=== PATIENT | female | born 1940 | race Caucasian/White ===

== ENCOUNTER 2023-10-26 16:19 | Inpatient (IN) | payer MEDICARE, OTHER, SELFPAY ==
[2023-10-26 11:41] VITALS: BP 146/84
[2023-10-26 12:08] LABS: % Basophils 0.4 % (0-2); % Eosinophils 0.2 % (0-6); % Immature Granulocytes 0.2 % (0-0.5); % Monocytes 12.6 % (1.7-9.3); % Neutrophils 62.6 % (42.2-75.2); Absolute Lymphocytes 1.1 10^3/uL (1.2-3.4); Absolute Monocytes 0.6 10^3/uL (0.1-0.6); Absolute Neutrophils 2.9 10^3/uL (1.4-6.5); Hematocrit 42.8 % (37.0-47.0); Hemoglobin 14.4 g/dL (12.0-16.0); Mean Corp Hgb Conc. 33.6 g/dL (33.0-37.0); Mean Corpuscular Hgb 30.6 pg (27.0-31.0); Mean Corpuscular Volume 90.9 fL (81.0-99.0); Mean Platelet Volume 9.1 fL (7.4-10.4); Nucleated Red Blood Cells % 0 %; Platelet Count 180 10^3/uL (130-400); Red Blood Cell Count 4.71 10^6/uL (4.20-5.40); Red Cell Dist. Width 12.8 % (11.5-14.5); White Blood Cell Count 4.6 10^3/uL (4.8-10.8)
[2023-10-26 12:25] LABS: ALT (SGPT) 72 U/L (0-35); AST (SGOT) 86 U/L (14-36); Albumin 4.1 g/dl (3.5-5.0); Alkaline Phosphatase 115 U/L (38-126); Blood Urea Nitrogen 19 mg/dl (7-17); Calcium 9.4 mg/dl (8.4-10.2); Carbon Dioxide 25 mmol/L (22-30); Chloride 101 mmol/L (98-107); Glucose 95 mg/dl (70-99); Potassium 3.8 mmol/L (3.5-5.1); Sodium 133 mmol/L (135-145); Total Bilirubin 0.7 mg/dl (0.2-1.3); Total Protein 6.7 g/dl (6.3-8.2)
[2023-10-26 12:33] LABS: NT-proBNP 1750 pg/ml; Troponin I < 0.012 ng/ml
--- NOTE | 2023-10-26 14:33 | ED.GENMED ---
History of Present Illness
General
Chief Complaint: Breathing Problem
Source: patient
Exam Limitations: none
Time Seen by Provider: 10/26/23 13:31
Nursing documentation reviewed up to this point in time: agreed with
Travel History
Have you had any contact with someone who has COVID-19?: No
Do you have any symptoms of coronavirus? Fever > 100 degrees, chills, cough, shortness of breath, sore throat, loss of taste or smell, muscle aches, or headache?: No
History of Present Illness
History of Present Illness:
82-year-old female with past medical history of A-fib not currently anticoagulated but is on diltiazem that she claims she initially was on for rate control but denies being in atrial fibrillation recently. Additionally has a history of
hyperlipidemia GERD CHF. She is presenting to the emergency department after seeing her primary care doctor was noted to have an elevated heart rate which was irregular with concerns for A-fib and also crackles upper lungs. Previously was taking
Lasix but missed roughly 6 days of the medication last week due to a GI bug that is now resolved. [place] minimally short of breath over the past few days feels slight improvement today. Has noticed some mild leg swelling. Does have decreased
exercise tolerance. Has noticed some sensation of wheezing recently. Has had some shortness of breath with lying flat over the past few days as well.
Review of Systems
Review of Systems
Allergies reviewed?: Yes
All Other Systems: ROS reviewed and negative except as documented in HPI and ROS
Phy Exam
Physical Exam
Physical Exam:
GENERAL: Alert , in no apparent distress
EYE: pupils equal and reactive
NECK: Supple, no significant adenopathy.
ENT: o/p clr, mmm.
CARDIAC: Very slight rhonchi mainly to the lower lungs. Regular rate and rhythm .
LUNGS: Clear breath sounds bilaterally, no acute respiratory distress, no wheezes/rales/rhonchi
ABDOMEN: Soft, without focal tenderness, no r/g, no cvat
NEUROLOGICAL: Alert and oriented, no focal neuro deficits
SKIN: Warm and dry, skin intact.
MUSCULOSKELETAL: No edema, well perfused.
PSYCH: Normal and appropriate interaction.
Scores
Heart Failure Risk
Heart Failure Risk Score: Not Applicable
Course
Orders/Labs/Results
Orders:
Orders
10/26/23 11:44
Electrocardiogram (*1) Urgent
Reason for Study: Other
Other Reason for Exam: Respiratory Distress
EKG- Treatment ONCE
CR Chest - 2 Views Urgent
Comment:
Reason For Exam: respiratory distress
10/26/23 11:55
Complete Blood Count/With Diff Urgent
Comprehensive Metabolic Panel Urgent
NT-proBNP Urgent
Troponin I Urgent
10/26/23 14:38
Furosemide [Lasix] 40 mg IV NOW STA
Abnormal Lab Results
10/26/23
11:55
WBC 4.6 L 10^3/uL
(4.8-10.8)
Absolute Lymphs (auto) 1.1 L 10^3/uL
(1.2-3.4)
Monocytes % 12.6 H %
(1.7-9.3)
Sodium 133 L mmol/L
(135-145)
BUN 19 H mg/dl
(7-17)
AST 86 H U/L
(14-36)
ALT 72 H U/L
(0-35)
10/26/23 11:55
10/26/23 11:55
Vital Signs
Initial and Last Documented VS:
Initial Vital Signs
Temp Pulse Resp BP Pulse Ox
98.5 F 112 22 146/84 95
10/26/23 11:41 10/26/23 11:41 10/26/23 11:41 10/26/23 11:41 10/26/23 11:41
Last Documented Vital Signs
Temp Pulse Resp BP Pulse Ox
98.5 F 87 16 127/67 97
10/26/23 11:41 10/26/23 15:00 10/26/23 15:00 10/26/23 14:49 10/26/23 13:55
MDM/Problems Addressed
MDM/Problems Addressed:
82-year-old female presenting to the emergency department today with concerns of shortness of breath and dyspnea on exertion over the past few days was additionally seen by the primary care doctor earlier today and was found to have an elevated
heart rate which was irregular concerning for A-fib and also had some crackles on lung examination. Upon arrival here patient had an elevated heart rate in the 110s which was irregularly irregular though improving to the 90s at rest pulse ox in the
mid 90s afebrile normal blood pressure. Labs showing slightly elevated BNP without any recent old levels for comparison negative troponin level EKG consistent with atrial fibrillation with occasional PVCs. Concerning the patient's recent decrease
in exercise tolerance and likely heart failure exacerbation symptoms plan to give dose of IV Lasix and admit for further treatment and monitoring of the atrial fibrillation as well. Patient may additionally need anticoagulation.
*Critical Care Note
Total Time (30-74mins, 75-104mins- exclusive of procedures): Not Applicable
ED Attending Note
-
Portions of this chart may have been created with voice recognition software.� Occasional wrong word or��sound alike� substitutions may have occurred due to the inherent limitations of voice recognition software.
Discharge Plan
Departure
Patient Disposition: Admit
Date of Disposition: 10/26/23
Time of Disposition: 15:28
Admit to: Telemetry
Admit to doctor: [email or web address]
Presentation/result/management discussed w/ accepting MD/DO: Hospitalist
Patient with high blood pressure during this ER visit?: No
Condition: Good
Covid-19: Not Applicable
Discharge Problem:
Heart failure
Prescriptions:
No Action
diltiazem HCl 240 MG capsule,extended release 24hr
240 mg PO HS
cyanocobalamin (vitamin B-12) 1,000 MCG tablet
500 mcg PO DAILY
pravastatin 20 MG tablet
40 mg PO HS
escitalopram oxalate 20 MG tablet
20 mg PO DAILY
omeprazole 20 MG tablet,delayed release (DR/EC)
20 mg PO DAILY
cholecalciferol (vitamin D3) [Vitamin D3] 1,000 UNIT capsule
5,000 unit PO DAILY
Metamucil 3-1 Fiber
2 tab PO DAILY
betamethasone dipropionate 1 APPLIC cream
1 applic topical DAILYPRN PRN (Reason: itch)
budesonide-formoterol [Symbicort] 1 PUFF HFA aerosol inhaler
2 puff inhalation R BID
Sutab 1.479-0.188- 0.225 gram Tablet
0 tab PO PER PKG DIR
valsartan 160 mg Capsule
160 mg PO DAILY
Farxiga 10 mg Tablet
10 mg PO DAILY
Probiotic
200 mg PO DAILY
furosemide 20 MG tablet
40 mg PO DAILY
Referrals:
Janes Gomez Jr., [Family Provider] -
Interventions
Interventions:
*General Assessment Last Done: 10/26/23 11:41
ED- Cardiac Assessment Last Done: 10/26/23 13:55
ED- Pulmonary Assessment Last Done: 10/26/23 13:55
[2023-10-26 14:49] VITALS: BP 127/67
[2023-10-26] MEDS: LASIX 40 MG IV (14:49)
--- NOTE | 2023-10-26 15:39 | HPS.HSE ---
Addendum entered and electronically signed by Trena Chavez MD 10/26/23 19:12:
82F hx PE pAfib HFpEF HLD GERD IBS p/w with SOB cough wheezing past few days after hold home lasix due to GI illness with associate diarrhea since resolved. Noted to be in afib on ED evaluation though rate controlled.
Physical Exam
General: No pallor, cyanosis, or jaundice.
HEENT: Throat clear. PERRLA Normocephalic atraumatic
NECK: Supple. No JVD Carotid Bruits
RESPIRATORY: bibasilar crackles, wheezing
CVS: S1, S2 normal. RRR. No murmur, rub or gallop.
ABDOMEN: Soft, non-tender. No distension. BS+/normal.
EXTREMITIES: No peripheral cyanosis or edema.
DIRECTOR OF TESTING: AOx3. No focal deficits.
#Acute on Chronic HFpEF
#Wheezing
#afib but rate controlled
Tele admit
Lasix IV diuresis
Cardio eval
ECHO
Daily weight I/O
duonebs RQID
Original Note:
Family Physician
-
Family Physician: Janes Gomez Jr.
Chief Complaint
-
Shortness of breath, wheezing
History of Present Illness
82-year-old female complaining of shortness of breath with persistent cough and wheezing over the past few days although missed 10 days of Lasix due to a GI bug. She was seen by her PCP for concerns for A-fib and bilateral crackles along with mild
leg edema. The patient also has orthopnea over the past few days. She reports during her GI bug with diarrhea for 4 days she increased her liquid intake to stay hydrated and stopped her oral Lasix. She resumed her Lasix yesterday but still has a
persistent cough with wheeze. She denies fever, chills, chest pain, palpitations, abdominal pain, nausea, vomiting, diarrhea, urinary symptoms. She has history of paroxysmal A-fib she is on diltiazem but not AC therapy due to infrequency although
is currently in A-fib controlled rate at present time. Other past medical history includes paroxysmal A-fib, HLD, CHF GERD, IBS, diverticulosis, colonic polyps, depression, PE 2019
Medical History
Past Medical History
Past Medical History: Reports Other
Additional Past Medical History:
PE 2020 was on Eliquis for 5 months
paroxysmal A-fib
HLD
CHF
GERD,
IBS
diverticulosis
colonic polyps
depression
Past Surgical History: Reports Other
Additional Past Surgical History:
Appendectomy age 71
Cholecystectomy
Cataract extraction
Endometrial cancer with hysterectomy
Social History
Tobacco: Non-smoker
Alcohol: Daily (1 glass wine stopped about 7 days ago)
Personal:
Living: With Family (With who has dementia)
Employment: Retired
Family History
Family History: Not pertinent
Allergies / Home Medications
Allergies reflects when Allergies were last updated in [employer] App.
Home Medications with original date entered in [employer] App
Allergy/Medication List:
Allergies
Allergy/AdvReac Type Severity Reaction Status Date / Time
prednisone Allergy psychosis Verified 02/10/23 13:03
Home Medications
cholecalciferol (vitamin D3) 25 mcg (1,000 unit) capsule (Vitamin D3) 5,000 unit PO DAILY 07/24/21
cyanocobalamin (vitamin B-12) 1,000 mcg tablet 500 mcg PO DAILY 07/24/21
diltiazem HCl 240 mg capsule,extended release 24 hr 240 mg PO HS 07/24/21
escitalopram oxalate 20 mg tablet 20 mg PO DAILY 07/24/21
omeprazole 20 mg tablet,delayed release 20 mg PO DAILY 07/24/21
Lactobacillus rhamnosus GG 10 billion cell capsule (Culturelle) 1 cap PO DAILY 02/10/23
dapagliflozin propanediol 10 mg tablet (Farxiga) 10 mg PO DAILY 02/10/23
alendronate 70 mg tablet 70 mg PO WEEKLY 10/26/23
furosemide 40 mg tablet 40 mg PO DAILY 10/26/23
rosuvastatin 10 mg tablet 10 mg PO HS 10/26/23
valsartan 160 mg tablet 160 mg PO DAILY 10/26/23
Review of Systems
-
History Source: Patient
A 12 point ROS was completed and negative except as noted: Yes
Constitutional: Denies Fever, Fatigue or Chills
EENT: Denies Sore Throat or Runny Nose
Respiratory: Reports Cough and Trouble Breathing (Shortness of breath, orthopnea, wheezing)
Cardiac: Denies Chest Pain, Diaphoresis, Palpitations or Syncope
Abdomen/GI: Denies Abdominal Pain, Nausea, Vomiting, Diarrhea, Constipated, Bloody Stools or Black Stools
: Denies Dysuria, Frequency, Flank Pain, Incontinence or Difficulty Voiding
Musculoskeletal: Reports Edema (Trace bilateral lower legs); Denies Joint Pain
Skin: Denies Itching or Rash
Neurological: Denies Dizzy or Headache
Endocrine: Reports No Symptoms
Hematologic/Lymphatic: Reports No Symptoms
Psych: Reports Calm
Physical Exam
Vital Signs
Vital Signs
Temp Pulse Resp BP Pulse Ox
98.5 F 87 16 127/67 97
10/26/23 11:41 10/26/23 15:00 10/26/23 15:00 10/26/23 14:49 10/26/23 13:55
Physical Exam
General: Comfortable and Conversant; No Pain, Fever or Chills
HEENT: NormoCephalic, Anicteric, Moist mucous membranes, PERRLA, [place] Conjunctivae and No Ptosis
Respiratory: Wheezes (Expiratory throughout both lung pérez)
Cardiac: S1/S2, Irregular Rhythm (A-fib controlled rate 90 bpm) and Peripheral Edema (Trace bilateral legs); No Murmur, Rub, Gallop or JVD
Breast: Deferred by me
GI: Soft, Non Tender, Non Distended and No Hepatosplenomegaly
Rectal: Deferred by Provider
Genito-urinary: Deferred by me
Musculoskeletal: No Clubbing, No Cyanosis, Edema, Left Lower Extremity (Trace) and Edema, Right Lower Extremity (Trace); No Edema, Left Upper Extremity or Edema, Right Upper Extremity
Skin: Warm and Dry; No Rash or Jaundice
Neuro: AO x 3, No Motor Deficits, Nonfocal/grossly intact, Cranial Nerves Intact and No Sensory Deficits; No Slurred Speech, Facial Droop or Tremors
Psych: Calm
Laboratory Results
-
10/26/23 11:55
10/26/23 11:55
Laboratory Results
Total Bilirubin 0.7 mg/dl (0.2-1.3) 10/26/23 11:55
AST 86 U/L (14-36) H 10/26/23 11:55
ALT 72 U/L (0-35) H 10/26/23 11:55
Alkaline Phosphatase 115 U/L (38-126) 10/26/23 11:55
Troponin I < 0.012 ng/ml 10/26/23 11:55
Data Reviewed
-
Diagnostic Radiology: Report Reviewed by me
Lab Data: Labs Reviewed by me
Impression/Plan
-
Impression/plan:
Admit to telemetry
#Acute on chronic CHF
Missed 6 days of Lasix due to GI bug
BNP 1750
-I/O, daily weight
-IV Lasix 40 mg given in ER
-Resume Lasix 40 mg daily
-Continue Farxiga
-Follows with [facility] cardiology
-2d Echo
duo nebs for wheezing
2D echo 01/20/2023: EF 60-65%, normal LVS LVSF, no wall abnormalities, mild LVH, diastolic function indeterminate, mild/moderate left atrial enlargement, mild TR, PASP 32-37 mmHg
#Paroxysmal A-fib
Current A-fib controlled rate on EKG 87 bpm
-Continue diltiazem patient not on AC therapy due to infrequency of A-fib
#Transaminitis likely secondary to venous congestion
-Will follow CMP
#Daily alcohol use
Recently stopped drinking 1 glass of wine 7 to 10 days ago
#HTN�benign
127/67
-Continue valsartan 160 mg daily, diltiazem to 40 mg at bedtime
#HLD
-Check lipid profile
-Continue pravastatin
#GERD
-Continue omeprazole
#Depression
-Continue Lexapro
Other PMH:
IBS
diverticulosis
colonic polyps with removal
Osteoporosis continue alginate weekly
DVT prophylaxis
Subcu Lovenox
Full code
--- NOTE | 2023-10-26 17:13 | CON.CAR ---
Addendum entered and electronically signed by Pranav Redd MD 10/26/23 18:17:
82 yo female with PMH of chronic HFPEF, HTN, and new diagnosis of atrial fibrillation (since last cardiology outpatient visit) is admitted with SOB. We are consulted for acute on chronic HFPEF. Of note, she recently stopped lasix due to a GI
illness. Then subsequently developed cough and orthopnea. Exam with irregular rhythm, no murmurs, 1+ LE edema.
Acute on chronic HFPEF. Continue IV lasix. Continue Farxiga.
Atrial fibrillation. Was present on EKG in January. May be persistent. Rate is controlled. Continue diltiazem 240mg daily. Check echo. We discussed topics of inpatient vs outpatient ARVIND/DCCV. She is thinking about her options.
CHADS2-VASC = 5. Start eliquis 5mg bid.
Original Note:
Consultation
Consultation Request
Date/Time Consultation Requested: 10/26/23 16:15
Date/Time Consultation Performed: 10/26/23 17:15
Requesting Provider: ESTEFANY Alexandre
Performing Provider: ESTEFANY Stanton for Dr. Redd
Reason for Consultation: Acute on chronic heart failure
Medical History
-
Chief Complaint: Shortness of breath
History of Present Illness:
Earnestine Balderas is an 82-year-old female (known to Dr. Ramon, her primary systems coordinator), with paroxysmal atrial fibrillation (not on oral anticoagulation), prior PE (completed apixaban for 5 months, 2019), hyperlipidemia, HFpEF, GERD, and IBS who
presented to the emergency department with shortness of breath. She endorsed associated cough and wheeze. She reports GI bug and holding doses of furosemide due to concern for dehydration. She saw her PCP and was found to have crackles by
auscultation in addition to lower extremity edema. Further interview revealed that the patient has been experiencing orthopnea for several days. She was given 1 dose of intravenous furosemide in the emergency department and reports improvement in
her respiratory symptoms. She is currently rate controlled in atrial fibrillation. Prior EKG performed at the time of colonoscopy shows atrial fibrillation with rapid ventricular response.
Past Medical History
Past Medical History: Arrhythmias (paroxysmal atrial fibrillation), CHF, Hypercholesterolemia and Other (PE [2020], IBS)
Past Surgical History: Appendectomy and Cholecystectomy
Social History
Tobacco: Non-Smoker
Alcohol: Daily (1 glass of wine every evening)
Drug: None
Personal:
Living: Assisted Living (caring for with dementia)
Employment: Retired
Family History
Family History: Reviewed & Not Pertinent
Allergies / Home Medications
Allergy/AdvReac Type Severity Reaction Status Date / Time
prednisone Allergy psychosis Verified 02/10/23 13:03
Medication Instructions Recorded Confirmed Type
cholecalciferol (vitamin D3) 25 5,000 unit PO DAILY 07/24/21 10/26/23 History
mcg (1,000 unit) capsule (Vitamin
D3)
cyanocobalamin (vitamin B-12) 500 mcg PO DAILY 07/24/21 10/26/23 History
1,000 mcg tablet
diltiazem HCl 240 mg 240 mg PO HS 07/24/21 10/26/23 History
capsule,extended release 24 hr
escitalopram oxalate 20 mg tablet 20 mg PO DAILY 07/24/21 10/26/23 History
omeprazole 20 mg tablet,delayed 20 mg PO DAILY 07/24/21 10/26/23 History
release
Lactobacillus rhamnosus GG 10 1 cap PO DAILY 02/10/23 10/26/23 History
billion cell capsule (Culturelle)
dapagliflozin propanediol 10 mg 10 mg PO DAILY 02/10/23 10/26/23 History
tablet (Farxiga)
alendronate 70 mg tablet 70 mg PO WEEKLY 10/26/23 10/26/23 History
furosemide 40 mg tablet 40 mg PO DAILY 10/26/23 10/26/23 History
rosuvastatin 10 mg tablet 10 mg PO HS 10/26/23 10/26/23 History
valsartan 160 mg tablet 160 mg PO DAILY 10/26/23 10/26/23 History
Review of Systems
-
History Source: Patient
All other systems: Negative unless noted
Constitutional: Fatigue
Respiratory: No Symptoms
Cardiac: No Symptoms
: No Symptoms
Physical Exam
Vital Signs
Temp Pulse Resp BP Pulse Ox
98.5 F 93 25 127/67 97
10/26/23 11:41 10/26/23 16:15 10/26/23 16:15 10/26/23 14:49 10/26/23 13:55
Lab Results
10/26/23 11:55
10/26/23 11:55
Troponin I < 0.012 ng/ml 10/26/23 11:55
Qqd-X-Rhpjjoefazn Pept 1750 pg/ml 10/26/23 11:55
Physical Exam
General: Well Developed, Well Nourished, No Apparent Distress and Comfortable
HEENT: Normocephalic, Anicteric and Moist Mucous Membranes
Respiratory: Clear and Non Labored Respirations
Cardiac: S1/S2, Irregular Rhythm and Peripheral Edema
Breast: Deferred by me
GI: Soft, Non Tender, Non Distended and Normal Bowel Sounds
Rectal: Deferred by Provider
Genito-urinary: No Costovertebral Tender
Musculoskeletal: No Clubbing and No Cyanosis
Skin: Warm
Neuro: AO x 3
Hematologic/Lymphatic: No Lymphadenopathy
Psych: Calm
Impression / Plan
-
HFpEF, acute on chronic
-Diuresis with furosemide 40mg IV daily, this requires intensive monitoring
-I/O, BMP and daily weight
-Update TTE
-Heart failure education
Atrial fibrillation, type unknown
-Rate controlled on diltiazem 240mg daily
-Oral Anticoagulation: None, start Apixaban 5mg BID
-[id number]: Score at least 5 (Heart failure, HTN, age 75 or more, female gender)
HTN, follow with diuresis
Pre-diabetes, Hgba1c 5.8%
Prior PE, completed apixaban for 5 months
Data Reviewed
-
EKG: Report Reviewed by me (Atrial fibrillation with PVCs, rate 92)
Radiology: Report Reviewed by me (CXR: Mild cardiomegaly. No acute disease of the chest.)
Medical Tests (Nuc Med, Echo etc): Report Reviewed by me (Echo as above)
Labs: Labs Reviewed by me
Old Records: Reviewed
[2023-10-26 17:24] VITALS: BP 122/69; BMI 31.7
[2023-10-26] MEDS: LOVENOX 40 MG SC (17:35)
--- NOTE | 2023-10-26 17:44 | PTCARENOTE ---
Arrived to unit and ambulated to room. Oriented to room. Call joy within reach.
[2023-10-26] MEDS: DUONEB 3 ML INH (19:51)
[2023-10-26 19:57] VITALS: BP 128/62
[2023-10-26] MEDS: CRESTOR 10 MG PO (21:07)
[2023-10-26] MEDS: ELIQUIS 5 MG PO (21:07)
[2023-10-26] MEDS: CARDIZEM CD 240 MG PO (21:07)
[2023-10-26 23:30] VITALS: BP 115/74
[2023-10-27] VITALS (7 sets, daily range): BP systolic 102–130; BP diastolic 58–81; PULSE 90; O2SAT 96; BMI 31.3
--- NOTE | 2023-10-27 07:26 | W.PN.HOSP.TC ---
Today's Communication/Plan
-
cont diuresis
daily weight I/O
Eliquis
PT eval
Duonebs
Assessment / Plan
Assessment / Plan
Physical Exam
General: No pallor, cyanosis, or jaundice.
HEENT: Throat clear. PERRLA Normocephalic atraumatic
NECK: Supple. No JVD Carotid Bruits
RESPIRATORY: bibasilar crackles, wheezing
CVS: S1, S2 normal. RRR.� No murmur, rub or gallop.
ABDOMEN: Soft, non-tender. No distension. BS+/normal.
EXTREMITIES: No peripheral cyanosis or edema.
PRODUCT TRANSFER PUMPER: AOx3. No focal deficits.
82-year-old female complaining of shortness of breath with persistent cough and wheezing over the past few days although missed 10 days of Lasix due to a GI bug.� She was seen by her PCP for concerns for A-fib and bilateral crackles along with mild
leg edema.� The patient also has orthopnea over the past few days.� She reports during her GI bug with diarrhea for 4 days she increased her liquid intake to stay hydrated and stopped her oral Lasix.� She resumed her Lasix yesterday but still has a
persistent cough with wheeze.� She denies fever, chills, chest pain, palpitations, abdominal pain, nausea, vomiting, diarrhea, urinary symptoms.� She has history of paroxysmal A-fib she is on diltiazem but not AC therapy due to infrequency although
is currently in A-fib controlled rate at present time.� Other past medical history includes paroxysmal A-fib, HLD, CHF GERD, IBS, diverticulosis, colonic polyps, depression, PE 2019
#Acute on chronic CHF
#wheezing (reported history cardiogenic wheezing)
Missed 6 days of Lasix due to GI bug
BNP 1750
-I/O, daily weight
-IV Lasix 40 mg given in ER
-Continue Farxiga
-Cardio eval appreciated cont IV lasix 40 mg daily
-ECHO appreciated EF 65-70%
-duo nebs R QID for wheezing, symptom improvement noted
#Paroxysmal A-fib
Current A-fib controlled rate on EKG 87 bpm
Cardio evval appreciated Eliquis 5 mg BID startded
#Transaminitis likely secondary to venous congestion
-mild, improving
#Daily alcohol use
Recently stopped drinking 1 glass of wine 7 to 10 days ago
#HTN�benign
cont home antihypertensives with holding parameters
#hx HLD
-lipid profile wnl
-Continue pravastatin
#GERD
-Continue omeprazole
#Depression
-Continue Lexapro
Other PMH:
IBS
diverticulosis
colonic polyps with removal
Osteoporosis continue alginate weekly
DVT prophylaxis
Subcu Lovenox
Full code
I spent a total of 55 minutes with the patient or on the floor. More than 50% of this time involved counseling and coordination of care.
Anticipated Discharge: 24 - 48 hours
Subjective/Interval History
-
Date of Service: October 27, 2023
Seen and examined at bedside in no acute distress resting comfortably in bed. reports some improvement in wheezing sob. Reports nebulizer treatments helping. 6 lb weight loss noted since admission start of IV diuresis.
Objective Data
-
Labs:
Laboratory Results
10/27/23
06:00
WBC Pending
Hgb Pending
Hct Pending
Plt Count Pending
Sodium Pending
Potassium Pending
Chloride Pending
Carbon Dioxide Pending
BUN Pending
Creatinine Pending
Glucose Pending
Calcium Pending
Total Bilirubin Pending
AST Pending
ALT Pending
Alkaline Phosphatase Pending
Vital Signs:
Vital Signs
Temp Pulse Resp BP Pulse Ox
97.7 F 76 18 121/67 95
10/27/23 04:03 10/27/23 04:03 10/27/23 04:03 10/27/23 04:03 10/27/23 04:03
I&O
10/26/23 10/27/23 10/28/23
06:59 06:59 06:59
Output Total 375 / 375
Balance -375 / -375
[2023-10-27] MEDS: DUONEB 3 ML INH ×4 (07:43→19:32)
[2023-10-27] MEDS: VITAMIN B-12 500 MCG PO (08:15)
[2023-10-27] MEDS: PROTONIX 40 MG PO (08:15)
[2023-10-27] MEDS: VISBIOME 1 CAP PO (08:15)
[2023-10-27] MEDS: FARXIGA 10 MG PO (08:15)
[2023-10-27] MEDS: ELIQUIS 5 MG PO ×2 (08:16→19:56)
[2023-10-27] MEDS: LEXAPRO 20 MG PO (08:16)
[2023-10-27] MEDS: LASIX 40 MG IV (08:16)
[2023-10-27] MEDS: DIOVAN 160 MG PO (08:16)
[2023-10-27 08:28] LABS: % Basophils 0.8 % (0-2); % Eosinophils 0.5 % (0-6); % Immature Granulocytes 0.3 % (0-0.5); % Lymphocytes 44.7 % (20.5-51.1); % Monocytes 12.3 % (1.7-9.3); % Neutrophils 41.4 % (42.2-75.2); Absolute Lymphocytes 1.8 10^3/uL (1.2-3.4); Absolute Monocytes 0.5 10^3/uL (0.1-0.6); Absolute Neutrophils 1.7 10^3/uL (1.4-6.5); Hematocrit 46.5 % (37.0-47.0); Hemoglobin 15.4 g/dL (12.0-16.0); Mean Corp Hgb Conc. 33.1 g/dL (33.0-37.0); Mean Corpuscular Hgb 30.3 pg (27.0-31.0); Mean Corpuscular Volume 91.5 fL (81.0-99.0); Mean Platelet Volume 9.1 fL (7.4-10.4); Nucleated Red Blood Cells % 0 %; Platelet Count 177 10^3/uL (130-400); Red Blood Cell Count 5.08 10^6/uL (4.20-5.40); Red Cell Dist. Width 12.8 % (11.5-14.5)
[2023-10-27] MEDS: VITAMIN D3 (cholecalciferol) 25 MCG PO (08:30)
[2023-10-27 08:42] LABS: ALT (SGPT) 67 U/L (0-35); AST (SGOT) 78 U/L (14-36); Albumin 3.6 g/dl (3.5-5.0); Alkaline Phosphatase 95 U/L (38-126); Blood Urea Nitrogen 28 mg/dl (7-17); Calcium 9.7 mg/dl (8.4-10.2); Carbon Dioxide 28 mmol/L (22-30); Chloride 98 mmol/L (98-107); Estimated Creatinine Clearance 45 ml/min; Glucose 85 mg/dl (70-99); HDL Cholesterol 68 mg/dl; LDL Cholesterol, Calculated 54 mg/dl; Potassium 4.1 mmol/L (3.5-5.1); Sodium 136 mmol/L (135-145); Total Bilirubin 0.7 mg/dl (0.2-1.3); Total Cholesterol 149 mg/dl (50-199); Total Protein 6.3 g/dl (6.3-8.2); Triglyceride 136 mg/dl (10-149); Very Low Density Lipoprotein 27 mg/dl (0-30); eGFR > 60.00
--- NOTE | 2023-10-27 13:02 | W.PN.CD ---
Today's Communication / Plan
-
Move to PO Lasix tomorrow
Suspect she will be good for home tomorrow
Impression / Plan
-
HFpEF, acute on chronic
-Diuresis with furosemide 40mg IV daily, this requires intensive monitoring => Move to PO tomorrow
-I/O, BMP and daily weight
-Updated TTE was fine
- We did look for ATTR CM and pyrophosphate scan was negative
-Heart failure education
Atrial fibrillation, persistent is the likely form
- I spoke about considering rhythm control and she is not sure she is interested. First EKG we see is January 2023 with AFib
-Rate controlled on diltiazem 240mg daily
-Oral Anticoagulation: None, start Apixaban 5mg BID
-[id number]: Score at least 5 (Heart failure, HTN, age 75 or more, female gender)
HTN, follow with diuresis
Pre-diabetes, Hgba1c 5.8%
Prior PE, completed apixaban for 5 months
Physical Exam
Vital Signs/Labs
Vital Signs
Temp Pulse Resp BP Pulse Ox
97.8 F 98 18 102/58 96
10/27/23 11:14 10/27/23 11:27 10/27/23 11:27 10/27/23 11:14 10/27/23 11:27
10/26/23 10/27/23 10/28/23
06:59 06:59 06:59
Actual Weight 75.013 kg
10/27/23 07:31
10/27/23 07:31
Triglycerides 136 mg/dl (10-149) 10/27/23 07:31
LDL Cholesterol, Calc 54 mg/dl 10/27/23 07:31
VLDL Cholesterol, Calc 27 mg/dl (0-30) 10/27/23 07:31
HDL Cholesterol 68 mg/dl 10/27/23 07:31
10/26/23
11:55
Ger-X-Zwpddxeakbt Pept 1750
LAB Results
10/26/23
11:55
Troponin I < 0.012
Physical Exam
Constitutional: No acute distress
EENT: Anicteric
Cardiovascular: Rhythm/rate is irregular
Respiratory: Respiratory effort normal and Lungs clear to auscul.
GI: Soft and Distention absent
Neuro/Psych: AO x 3
Data Reviewed
-
Date of Service: October 27, 2023
--- NOTE | 2023-10-27 15:55 | PTCARENOTE ---
pt's HR on Tele monitor was in 140's-150's. pt talking on the phone. states she feels her heart race a little. Cardio made aware. no new orders at this time.
--- NOTE | 2023-10-27 16:18 | CM ---
CM following re: d/c planning
Chart reviewed
Cm met with the patient at bedside; IA completed
Pt reports that she and her spouse reside in a [place] with no CHRISTOPHER
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
Pt has no previous SNF/VN hx however does own a spc, w/c, & r/w for use if needed
Pt confirms prescription coverage and rx's are filled at [facility]
Pt PCP-Janes Dillon
CM addressed addressed consult to uribe the cost of Eliquis & Xarelto and informed the provider of the same
Post d/c recommendation is for VN, CM will send TT to clinical liaison w/[facility] to place referral
CM will continue to monitor patient progress and assist with additional needs at d/c as applicable
PLAN; d/c home with VN
[2023-10-27] MEDS: CARDIZEM CD 240 MG PO (21:03)
[2023-10-27] MEDS: CRESTOR 10 MG PO (21:03)
[2023-10-28 03:30] VITALS: BP 100/69
[2023-10-28 05:37] VITALS: BMI 31.1
[2023-10-28 06:24] LABS: % Basophils 0.8 % (0-2); % Eosinophils 1.3 % (0-6); % Immature Granulocytes 0.5 % (0-0.5); % Lymphocytes 33.7 % (20.5-51.1); % Neutrophils 50.7 % (42.2-75.2); Absolute Eosinophils 0.1 10^3/uL (0-0.7); Absolute Lymphocytes 1.3 10^3/uL (1.2-3.4); Absolute Monocytes 0.5 10^3/uL (0.1-0.6); Absolute Neutrophils 1.9 10^3/uL (1.4-6.5); Hematocrit 45.7 % (37.0-47.0); Hemoglobin 15.1 g/dL (12.0-16.0); Mean Corpuscular Hgb 30.2 pg (27.0-31.0); Mean Corpuscular Volume 91.4 fL (81.0-99.0); Nucleated Red Blood Cells % 0 %; Platelet Count 168 10^3/uL (130-400); Red Cell Dist. Width 12.8 % (11.5-14.5); White Blood Cell Count 3.8 10^3/uL (4.8-10.8)
[2023-10-28 06:47] LABS: ALT (SGPT) 57 U/L (0-35); AST (SGOT) 57 U/L (14-36); Albumin 3.6 g/dl (3.5-5.0); Alkaline Phosphatase 92 U/L (38-126); Blood Urea Nitrogen 28 mg/dl (7-17); Calcium 9.3 mg/dl (8.4-10.2); Carbon Dioxide 30 mmol/L (22-30); Chloride 102 mmol/L (98-107); Estimated Creatinine Clearance 41 ml/min; Glucose 103 mg/dl (70-99); Potassium 3.6 mmol/L (3.5-5.1); Sodium 136 mmol/L (135-145); Total Bilirubin 0.5 mg/dl (0.2-1.3); Total Protein 6.2 g/dl (6.3-8.2)
[2023-10-28 07:21] VITALS: BP 124/83
--- NOTE | 2023-10-28 07:25 | W.PN.HOSP.TC ---
Addendum entered and electronically signed by Trena Chavez MD 10/29/23 13:13:
hx paroxysmal afib now persistent as per cardiology
Original Note:
Today's Communication/Plan
-
discharge
Assessment / Plan
Assessment / Plan
Physical Exam
General: No pallor, cyanosis, or jaundice.
HEENT: Throat clear. PERRLA Normocephalic atraumatic
NECK: Supple. No JVD Carotid Bruits
RESPIRATORY: Clear to auscultation
CVS: S1, S2 normal. RRR.� No murmur, rub or gallop.
ABDOMEN: Soft, non-tender. No distension. BS+/normal.
EXTREMITIES: No peripheral cyanosis or edema.
ENROLLMENT REPRESENTATIVE: AOx3. No focal deficits.
82-year-old female complaining of shortness of breath with persistent cough and wheezing over the past few days although missed 10 days of Lasix due to a GI bug.� She was seen by her PCP for concerns for A-fib and bilateral crackles along with mild
leg edema.� The patient also has orthopnea over the past few days.� She reports during her GI bug with diarrhea for 4 days she increased her liquid intake to stay hydrated and stopped her oral Lasix.� She resumed her Lasix yesterday but still has a
persistent cough with wheeze.� She denies fever, chills, chest pain, palpitations, abdominal pain, nausea, vomiting, diarrhea, urinary symptoms.� She has history of paroxysmal A-fib she is on diltiazem but not AC therapy due to infrequency although
is currently in A-fib controlled rate at present time.� Other past medical history includes paroxysmal A-fib, HLD, CHF GERD, IBS, diverticulosis, colonic polyps, depression, PE 2019
#Acute on chronic CHF
#wheezing (reported history cardiogenic wheezing)
Missed 6 days of Lasix due to GI bug
BNP 1750
I/O, daily weight
IV Lasix 40 mg given in ER
Continue Farxiga
ECHO appreciated EF 65-70%
duo nebs R QID for wheezing, symptom improvement noted will recommend follow up with latex dipper outpatient for PFTs
Cardio eval appreciated IV lasix 40 mg daily transitioned to PO
-Cardizem increased from home 240 to 360 daily. Stable for discharge outpatient follow up.
#Paroxysmal A-fib
Current A-fib controlled rate on EKG 87 bpm
Cardio eval appreciated Eliquis 5 mg BID startded
#Transaminitis likely secondary to venous congestion
-mild, improving
#Daily alcohol use
Recently stopped drinking 1 glass of wine 7 to 10 days ago
#HTN�benign
cont home antihypertensives with holding parameters
#hx HLD
-lipid profile wnl
-Continue pravastatin
#GERD
-Continue omeprazole
#Depression
-Continue Lexapro
Other PMH:
IBS
diverticulosis
colonic polyps with removal
Osteoporosis continue alginate weekly
DVT prophylaxis
Subcu Lovenox
Full code
Medically stable for discharge home with home services and outpatient follow up recommendations.
discussed with patient and her sister
Total Time Preparing Discharge ___45____ minutes including examination of the patient, summary of the hospital stay, instructions for continuing care to all relevant caregivers; and preparation of discharge records, prescriptions, and referral
forms if necessary.
Anticipated Discharge: Today
Subjective/Interval History
-
Date of Service: October 28, 2023
Seen and examined at bedside in no acute distress resting comfortably in bed. Reports improvement in overall symptoms. Denies any new acute issues. Eager to go home. Sister Susanne present during evaluation.
Objective Data
-
Labs:
Laboratory Results
10/28/23
05:35
WBC 3.8 L
Hgb 15.1
Hct 45.7
Plt Count 168
Sodium 136
Potassium 3.6
Chloride 102
Carbon Dioxide 30
BUN 28 H
Creatinine 1.0
Glucose 103 H
Calcium 9.3
Total Bilirubin 0.5
AST 57 H
ALT 57 H
Alkaline Phosphatase 92
Vital Signs:
Vital Signs
Temp Pulse Resp BP Pulse Ox
97.9 F 79 18 100/69 96
10/28/23 03:30 10/28/23 03:30 10/28/23 03:30 10/28/23 03:30 10/28/23 03:30
I&O
10/27/23 10/28/23 10/29/23
06:59 06:59 06:59
Intake Total 1200 / 1200
Output Total 375 / 375 1450 / 1450
Balance -375 / -375 -250 / -250
[2023-10-28] MEDS: DUONEB 3 ML INH ×2 (07:42→11:14)
--- NOTE | 2023-10-28 08:18 | W.PN.CD ---
Today's Communication / Plan
-
-Patient has been transitioned back to Lasix 40 mg PO daily, which she should continue at home.
-Continue Farxiga 10 mg daily.
-Patient with A-fib with mildly elevated heart rates at times.
-Will increase Cardizem CD from 240 mg daily to 360 mg daily, which should be new home dose.
-Continue Apixaban 5mg BID.
-Patient can be discharged to home today; outpatient follow-up with Cardiology as scheduled.
Impression / Plan
-
HFpEF, acute on chronic
-Patient has been transitioned back to Lasix 40 mg PO daily, which she should continue at home.
-Continue Farxiga 10 mg daily.
-Updated TTE was fine
-We did look for ATTR CM and pyrophosphate scan was negative
Atrial fibrillation, persistent is the likely form
-First EKG we see is January 2023 with AFib
-Patient with A-fib with mildly elevated heart rates at times.
-Will increase Cardizem CD from 240 mg daily to 360 mg daily, which should be new home dose.
-Continue Apixaban 5mg BID.
-[id number]: Score at least 5 (Heart failure, HTN, age 75 or more, female gender)
HTN-controlled on current medications; continue.
Pre-diabetes, Hgba1c 5.8%
Prior PE, completed apixaban for 5 months
Hyperlipidemia-continue rosuvastatin.
Physical Exam
Vital Signs/Labs
Vital Signs
Temp Pulse Resp BP Pulse Ox
98.1 F 86 18 124/83 94
10/28/23 07:21 10/28/23 07:44 10/28/23 07:44 10/28/23 07:21 10/28/23 07:44
10/27/23 10/28/23 10/29/23
06:59 06:59 06:59
Actual Weight 75.013 kg 74.503 kg
10/28/23 05:35
10/28/23 05:35
Triglycerides 136 mg/dl (10-149) 10/27/23 07:31
LDL Cholesterol, Calc 54 mg/dl 10/27/23 07:31
VLDL Cholesterol, Calc 27 mg/dl (0-30) 10/27/23 07:31
HDL Cholesterol 68 mg/dl 10/27/23 07:31
10/26/23
11:55
Ace-M-Zgvlcagtcys Pept 1750
LAB Results
10/26/23
11:55
Troponin I < 0.012
Physical Exam
Constitutional: No acute distress and Comfortable
EENT: Anicteric
Cardiovascular: Pedal edema is absent, Systolic murmur absent, Rhythm/rate is irregular and S1S2 is normal
Respiratory: Respiratory effort normal and Lungs clear to auscul.
GI: Soft
Neuro/Psych: AO x 3
Other: Skin (Warm, dry, intact)
Data Reviewed
-
Date of Service: October 28, 2023
EKG: Tracing Personally Visualized and interpreted (Telemetry: A-fib, intermittent RVR)
Echo: Tracing Personally Visualized and interpreted (EF 65%; no significant valvular disease)
Medical Tests (PFT, Pathology etc): Discussed with Nurse and Discussed with Patient
Labs: Labs Reviewed by me
[2023-10-28] MEDS: DIOVAN 160 MG PO (08:57)
[2023-10-28] MEDS: ELIQUIS 5 MG PO (08:57)
[2023-10-28] MEDS: VITAMIN B-12 500 MCG PO (08:58)
[2023-10-28] MEDS: FARXIGA 10 MG PO (08:58)
[2023-10-28] MEDS: PROTONIX 40 MG PO (08:58)
[2023-10-28] MEDS: LASIX 40 MG PO (08:58)
[2023-10-28] MEDS: VISBIOME 1 CAP PO (08:58)
[2023-10-28] MEDS: LEXAPRO 20 MG PO (08:58)
[2023-10-28] MEDS: FLUSH (NSS) 1 FLUSH IV (08:59)
[2023-10-28] MEDS: VITAMIN D3 (cholecalciferol) 25 MCG PO (08:59)
[2023-10-28] MEDS: CARDIZEM CD 360 MG PO (08:59)
--- NOTE | 2023-10-28 12:10 | PN.CDI ---
CDI
- -
CDI:
Physician Documentation Request
Admit Date: 10/26/23 16:19
Dear Doctor Scott,
Please review the following and provide your response in the progress notes.
Clinical Indicators:
- 10/28 Cardiology 'Atrial fibrillation, persistent is the likely form'
- 10/27 PN 'Paroxysmal A-fib'
If possible, please provide further specificity regarding atrial fibrillation, such as:
Paroxysmal atrial fibrillation - terminates spontaneously or with intervention within 7 days of onset
Persistent atrial fibrillation - episodes of continuous AF that last more than 7 days and do not self-terminate
Permanent atrial fibrillation - when a decision has been made to accept the presence of AF and there is no further attempt to restore or maintain sinus rhythm
Other - please specify
Use of terms such as suspected, likely, concern for, or probable (associated with a specific diagnosis that is being evaluated, monitored, or treated as if it exists) are acceptable and can be coded in the inpatient setting, when documented at the
time of discharge.
Thank you,
Belkys Soriano RN
CDI Specialist
Please use your independent medical judgment in providing your response.
[2023-10-28 12:15] VITALS: BP 102/63
--- NOTE | 2023-10-28 14:17 | VNURNOTE ---
Home Health Liaison met with patient at 1400 to discuss [facility] nurse/therapy, visits, schedule and homebound status. Patient is agreeable and understands that visits at home will be 2-3 x per week to assess and teach medical management. Patient has a
scale and is able to log a daily weight.
[facility] brochure provided with contact information. Patient is aware that [facility] will contact her for start of care in 1-2 days after discharge from .
[facility] referral completed in [facility].
--- NOTE | 2023-10-28 14:49 | W.DCSUMMARY ---
Discharge Summary
Discharge Data
Date of Admission: 10/26/23
Date of Discharge: 10/28/23
-
Pending Results: No
Hospital Course
82F p/w shortness of breath with persistent cough and wheezing over the past few days although missed 10 days of Lasix due to GI illness.� She was seen by her PCP for concerns of A-fib and bilateral crackles along with mild leg edema.� The patient
also had orthopnea over the past few days.� She has history of paroxysmal A-fib for which she was on diltiazem but not AC therapy due to infrequency although presented in persistent A-fib controlled rate.� Other past medical history included HLD,
CHF GERD, IBS, diverticulosis, colonic polyps, depression, PE 2019. Acute on chronic CHF, wheezing (reported history cardiogenic wheezing), BNP 1750, I/O,ECHO appreciated EF 65-70%. Patient responded well to lasix diuresis and duo nebs R QID for
wheezing, outpt follow up with [facility] Care Unit Nurse recommended. Cardiology evaluated and transitioned patient from IV lasix to PO, increased home Cardizem from 240 mg to 360 mg daily, and started patient on Eliquis. Transaminitis likely secondary to
venous congestion-mild, improving. Medically stable, patient was discharged home with home services and outpatient follow up recommendations.
Discharge Plan
-
Patient Disposition: Home with Home Care
Discharge Diagnosis/Procedures: Acute on Chronic Heart Failure with Preserved Ejection Fraction, Wheezing possible reactive airway disease, paroxysmal atrial fibrillation, mild Liver Transaminitis secondary to Heart failure exacerbation improving,
hypertension, hyperlipidemia
Condition: Fair
Diet: Low Cholesterol and 2 Gram Sodium
Activity: As tolerated
Driving Restrictions: As prior to admission
Bathing Restrictions: None
Blood Work: Please repeat CBC and CMP with primary care provider in 1 week of discharge.
Others Tests: Please follow up with top printing press operator in 2-4 weeks of discharge for formal pulmonary function tests.
Other Services: VN, PT and OT
Specialty Instructions: Weigh Daily- Call MD for wt gain/loss 3 lbs overnight/5 lbs in 1 week
Activity Restrictions/Additional Instructions:
Please follow up with primary care provider in 1 week of discharge, keep your appointment with cardiology, and follow up with top printing press operator in 2-4 weeks of discharge.
Eliquis has been prescribed for atrial fibrillation stroke risk reduction.
Cardizem has been prescribed for better rate control atrial fibrillation.
Please take medications as prescribed/recommended and follow up with primary care provider and/or other healthcare provider involved in your care for refills and/or further adjustments to your medication regimen as necessary.
cholecalciferol (vitamin D3) 25 mcg (1,000 unit) capsule (Vitamin D3) 5,000 unit PO DAILY Vitamin D supplementation
cyanocobalamin (vitamin B-12) 1,000 mcg tablet 500 mcg PO DAILY Vitamin B-12 supplementation
escitalopram oxalate 20 mg tablet 20 mg PO DAILY Mental Health/Anxiety/Depression
omeprazole 20 mg tablet,delayed release 20 mg PO DAILY Gastrointestinal Issue
Lactobacillus rhamnosus GG 10 billion cell capsule (Culturelle) 1 cap PO DAILY Gastrointestinal Issue
dapagliflozin propanediol 10 mg tablet (Farxiga) 10 mg PO DAILY Heart Failure
alendronate 70 mg tablet 70 mg PO WEEKLY OSTEOPOROSIS
furosemide 40 mg tablet 40 mg PO DAILY Fluid Retention/Swelling For Heart Failure
rosuvastatin 10 mg tablet 10 mg PO HS High Cholesterol
valsartan 160 mg tablet 160 mg PO DAILY For Hypertension
albuterol sulfate 90 mcg/actuation aerosol inhaler (Ventolin HFA) 2 puff inhalation Q6H PRN shortness of breath or wheezing possible reactive airway disease/asthma
New Medications or Medication Dose change
apixaban 5 mg tablet (Eliquis) 5 mg PO BID for atrial fibrillation stroke risk reduction
diltiazem HCl 180 mg capsule,extended release 24 hr 360 mg PO DAILY increased from prior home dose 240 mg for better rate control atrial fibrillation
Instructions: Atrial Fibrillation (DC), Heart Failure, Adult (DC)
Referrals:
Janes Gomez Jr., DO [Family Provider] - in one week
Dino James MD [Active] - in two to four weeks
Arya Ramon MD [Active] - 11/15/23 2:00 pm
Prescriptions:
New
diltiazem HCl 180 mg Capsule,Extended Release 24hr
360 mg PO DAILY 30 Days Qty: 60 0RF
Eliquis 5 mg Tablet
5 mg PO BID 30 Days Qty: 60 0RF
albuterol sulfate [Ventolin HFA] 90 mcg/actuation HFA aerosol inhaler
2 puff inhalation Q6H PRN (Reason: shortness of breath or wheezing) Qty: 8.5 0RF
Continued
cyanocobalamin (vitamin B-12) 1,000 MCG tablet
500 mcg PO DAILY
escitalopram oxalate 20 MG tablet
20 mg PO DAILY
omeprazole 20 MG tablet,delayed release (DR/EC)
20 mg PO DAILY
cholecalciferol (vitamin D3) [Vitamin D3] 1,000 UNIT capsule
5,000 unit PO DAILY
Culturelle 10 billion cell Capsule
1 cap PO DAILY
dapagliflozin propanediol [Farxiga] 10 mg Tablet
10 mg PO DAILY
furosemide 40 mg tablet
40 mg PO DAILY
alendronate 70 mg tablet
70 mg PO WEEKLY
valsartan 160 mg tablet
160 mg PO DAILY
rosuvastatin 10 mg tablet
10 mg PO HS
Discontinued
diltiazem HCl 240 MG capsule,extended release 24hr
240 mg PO HS
Discharge Orders:
Discharge Patient (As Directed); Ordered 10/28/23
Ordered By: Trena Chavez
Discharge Date and Time
Discharge Date/Time: 10/28/23 16:44
--- NOTE | 2023-10-28 15:51 | CM ---
CM following re: d/c planning
Chart reviewed
Pt is medically stable for d/c
Post d/c recommendation is home with VN
CM notified clinical liaison/[facility] who placed referral & accepted
No additional d/c needs to note
PLAN; d/c home with [facility]
[2023-10-28] MEDS: DUONEB INH (16:11)
== END 2023-10-28 16:44 | disposition home health service (06) | DRG 291 ==
LOC: 4 EAST ACU 16:19
PROVIDERS: Clinical Nurse Specialist Family Health; Physician Assistant; ADMITTING PHYSICIAN Internal Medicine; CONSULT PHYSICIAN Internal Medicine; EMERGENCY PHYSICIAN Emergency Medicine; FAMILY PHYSICIAN Family Medicine
DX: I11.0 Hypertensive heart disease with heart failure (principal); I50.33 Acute on chronic diastolic (congestive) heart failure; I48.19 Other persistent atrial fibrillation; K21.9 Gastro-esophageal reflux disease without esophagitis; F32.A Depression, unspecified; E78.00 Pure hypercholesterolemia, unspecified
CPT/HCPCS: 71046; 80053; 80061; 83880; 84484; 85025; 93005; 93306; 94640; 96374; 97162; 99285

== ENCOUNTER → 2023-11-09 12:41 | Outpatient (REF) | payer MEDICARE, OTHER, SELFPAY ==
[2023-11-09 13:25] LABS: % Basophils 0.9 % (0-2); % Eosinophils 1.8 % (0-6); % Immature Granulocytes 0.3 % (0-0.5); % Lymphocytes 38.7 % (20.5-51.1); % Monocytes 7.3 % (1.7-9.3); Absolute Basophils 0.1 10^3/uL (0-0.2); Absolute Eosinophils 0.1 10^3/uL (0-0.7); Absolute Lymphocytes 2.6 10^3/uL (1.2-3.4); Absolute Monocytes 0.5 10^3/uL (0.1-0.6); Absolute Neutrophils 3.5 10^3/uL (1.4-6.5); Hemoglobin 15.4 g/dL (12.0-16.0); Mean Corp Hgb Conc. 33.5 g/dL (33.0-37.0); Mean Corpuscular Hgb 30.2 pg (27.0-31.0); Mean Corpuscular Volume 90.2 fL (81.0-99.0); Mean Platelet Volume 10.4 fL (7.4-10.4); Nucleated Red Blood Cells % 0 %; Platelet Count 262 10^3/uL (130-400); Red Cell Dist. Width 12.5 % (11.5-14.5); White Blood Cell Count 6.8 10^3/uL (4.8-10.8)
[2023-11-09 13:42] LABS: ALT (SGPT) 29 U/L (0-35); AST (SGOT) 28 U/L (14-36); Albumin 3.8 g/dl (3.5-5.0); Alkaline Phosphatase 70 U/L (38-126); Blood Urea Nitrogen 16 mg/dl (7-17); Calcium 10.2 mg/dl (8.4-10.2); Carbon Dioxide 26 mmol/L (22-30); Chloride 104 mmol/L (98-107); Glucose 114 mg/dl (70-99); Potassium 4.2 mmol/L (3.5-5.1); Sodium 140 mmol/L (135-145); Total Bilirubin 0.8 mg/dl (0.2-1.3); Total Protein 6.3 g/dl (6.3-8.2); eGFR > 60.00
== END ==
LOC: OLABPV 12:41
PROVIDERS: ATTENDING PHYSICIAN Family Medicine
DX: R79.89 Other specified abnormal findings of blood chemistry (principal); R73.03 Prediabetes; I48.0 Paroxysmal atrial fibrillation; R53.83 Other fatigue
CPT/HCPCS: 80053; 85025

== ENCOUNTER 2023-12-23 09:24 | Day surgery (SDC) | payer MEDICARE, OTHER, SELFPAY ==
[2023-12-23 10:23] VITALS: BMI 32.2
== END 2023-12-23 11:20 | disposition home or self-care (01) ==
LOC: CATH 09:24
PROVIDERS: ATTENDING PHYSICIAN Internal Medicine Cardiovascular Disease; FAMILY PHYSICIAN Family Medicine; OTHER PHYSICIAN Internal Medicine
DX: I48.19 Other persistent atrial fibrillation (principal); I11.0 Hypertensive heart disease with heart failure; I50.32 Chronic diastolic (congestive) heart failure; E78.2 Mixed hyperlipidemia; K21.9 Gastro-esophageal reflux disease without esophagitis; E66.9 Obesity, unspecified; Z68.32 Body mass index [BMI] 32.0-32.9, adult; Z85.89 Personal history of malignant neoplasm of other organs and systems; Z79.84 Long term (current) use of oral hypoglycemic drugs; Z79.01 Long term (current) use of anticoagulants
CPT/HCPCS: 92960; 93005

== ENCOUNTER → 2024-01-13 | Outpatient (REF) | payer MEDICARE, OTHER, SELFPAY | LOC: DHSLP | PROVIDERS: ATTENDING PHYSICIAN Internal Medicine Critical Care Medicine; FAMILY PHYSICIAN Family Medicine | DX: G47.33 Obstructive sleep apnea (adult) (pediatric) (principal) | CPT/HCPCS: 95800 ==

== ENCOUNTER → 2024-01-21 10:38 | Outpatient (REF) | payer MEDICARE, OTHER, SELFPAY ==
[2024-01-21 11:32] LABS: % Basophils 0.6 % (0-2); % Eosinophils 3.1 % (0-6); % Immature Granulocytes 0.2 % (0-0.5); % Monocytes 7.5 % (1.7-9.3); % Neutrophils 41.6 % (42.2-75.2); Absolute Eosinophils 0.2 10^3/uL (0-0.7); Absolute Lymphocytes 2.4 10^3/uL (1.2-3.4); Absolute Monocytes 0.4 10^3/uL (0.1-0.6); Absolute Neutrophils 2.1 10^3/uL (1.4-6.5); Hematocrit 45.9 % (37.0-47.0); Hemoglobin 14.9 g/dL (12.0-16.0); Mean Corp Hgb Conc. 32.5 g/dL (33.0-37.0); Mean Corpuscular Hgb 29.2 pg (27.0-31.0); Mean Platelet Volume 9.8 fL (7.4-10.4); Nucleated Red Blood Cells % 0 %; Platelet Count 205 10^3/uL (130-400); Red Cell Dist. Width 13.6 % (11.5-14.5); White Blood Cell Count 5.1 10^3/uL (4.8-10.8)
[2024-01-21 12:48] LABS: ALT (SGPT) 33 U/L (0-35); AST (SGOT) 33 U/L (14-36); Albumin 4.2 g/dl (3.5-5.0); Alkaline Phosphatase 82 U/L (38-126); Blood Urea Nitrogen 18 mg/dl (7-17); Calcium 10.6 mg/dl (8.4-10.2); Carbon Dioxide 24 mmol/L (22-30); Chloride 107 mmol/L (98-107); Glucose 103 mg/dl (70-99); HDL Cholesterol 80 mg/dl; LDL Cholesterol, Calculated 50 mg/dl; Sodium 141 mmol/L (135-145); Total Bilirubin 0.7 mg/dl (0.2-1.3); Total Cholesterol 144 mg/dl (50-199); Total Protein 6.8 g/dl (6.3-8.2); Triglyceride 74 mg/dl (10-149); Very Low Density Lipoprotein 14 mg/dl (0-30); eGFR > 60.00
[2024-01-21 13:07] LABS: TSH Reflex To Free T4 2.27 uIU/ml (0.47-4.68)
[2024-01-21 16:10] LABS: Intact PTH 121.6 pg/ml (13.6-85.8)
== END ==
LOC: OLABPV 10:38
PROVIDERS: ATTENDING PHYSICIAN Family Medicine
DX: Z13.29 Encounter for screening for other suspected endocrine disorder (principal); R53.83 Other fatigue; R73.03 Prediabetes; E78.2 Mixed hyperlipidemia
CPT/HCPCS: 36415; 80053; 80061; 83036; 83970; 84443; 85025

== ENCOUNTER → 2024-02-22 12:50 | Outpatient (REF) | payer MEDICARE, OTHER, SELFPAY | LOC: RAD 12:50 | PROVIDERS: ATTENDING PHYSICIAN Family Medicine | DX: E21.3 Hyperparathyroidism, unspecified (principal) | CPT/HCPCS: 76536 ==

== ENCOUNTER → 2024-04-11 15:34 | Outpatient (REF) | payer MEDICARE, OTHER, SELFPAY | LOC: RAD 15:34 | PROVIDERS: ATTENDING PHYSICIAN Family Medicine | DX: M79.672 Pain in left foot (principal) | CPT/HCPCS: 73630 ==

== ENCOUNTER → 2024-04-18 09:18 | Outpatient (REF) | payer MEDICARE, OTHER, SELFPAY | LOC: RAD 09:18 | PROVIDERS: ATTENDING PHYSICIAN Family Medicine | DX: E21.3 Hyperparathyroidism, unspecified (principal) | CPT/HCPCS: 78071; A9500 ==

== ENCOUNTER 2024-07-13 05:59 | Day surgery (SDC) | payer MEDICARE, OTHER, SELFPAY ==
[2024-06-30 09:31] VITALS: BMI 33.1
[2024-07-13] VITALS (18 sets, daily range): BP systolic 98–122; BP diastolic 57–77; BMI 32.8
--- NOTE | 2024-07-13 10:04 | ITS.CL.ABL ---
Pipe Manufacture Supervisor - Ablation
Ablation
Procedure Report:
AFIB ablation:
Ms. Balderas is a very pleasant 83 yr old woman with symptomatic persistent AF and atrial flutters, is recommended for atrial fibrillation ablation.
Date of the Procedure:
07/13/2024
Indications:
Persistent atrial fibrillation / atrial flutter
Pre-Operative Diagnosis:
Persistent atrial fibrillation / atrial flutter
Post-Operative Diagnosis:
Persistent atrial fibrillation / atrial flutter
Procedure Performed:
Atrial fibrillation ablation with Pulsed-Field approach for pulmonary vein isolation
Posterior wall isolation
Performing Physician:
Lukas Quinones MD
Assistants:
EP staff
Anesthesia:
See anesthesia records
Detailed Description of the Procedure:
Written informed consent was obtained from the patient after a full explanation of the risks and benefits of the procedure including the risks of sedation and anesthesia.
The patient was brought to the electrophysiology laboratory in stable condition in fasting state. Continuous electrocardiographic and hemodynamic monitoring was initiated.
The initial rhythm was atrial fibrillation.
The procedure site was meticulously prepared with surgical scrub and allowed to dry with no pooling. Sterile draping was applied to cover the procedure site. The image intensifier was draped with sterile bag and positioned over the patient. After
infusion of local anesthetic, vascular access was obtained under ultrasound guidance and sheaths were placed over guide wire as detailed below.
Sheath and Catheter Placement:
The following catheters / sheaths were placed
Sheaths:
��������� 17Fr steerable sheath (Weijuadrive�, Dentalink) in right femoral
��������� 9Fr in right femoral vein
Catheters:
��������� KAREN HD Grid mapping catheter � at locations of RA, LA
��������� Farawave� PFA catheter
��������� ICE catheter -AcuNav - at locations of RA, SVC, and RV.
��������� Decapolar catheter in RA and CS
Intracardiac ECHO:
An 8-Greenlandic AcuNav intracardiac ECHO (ICE) probe was advanced through the 9-Greenlandic sheath in the right femoral vein into the right atrium under fluoroscopic and ICE ultrasound image guidance and a baseline ECHO study was performed. The left atrial
size was dilated. There was moderate tricuspid regurgitation. The aortic valve was grossly normal. There was normal left ventricular systolic functions. There is no pericardial effusion. All the four veins were identified and has flow identified.
There was severe spontaneous contrast noted in the KATLIN.
During the procedure, ICE was used for monitoring of complications, guidance of trans-septal puncture, monitor the catheter position and tracking ablation lesions. No change in the pericardial space noted throughout the procedure.
Trans-septal Puncture:
Heparin was initiated and infused to maintain appropriate ACT. A pigtail guidewire was advanced through the 8-Greenlandic sheath in the right femoral vein into the superior vena cava under fluoroscopic and ICE guidance. The 9-Greenlandic sheath was exchanged
for a Faradrive sheath which was advanced into the superior vena cava. A transseptal VersaCross RF pigtail via Faradrive connect system was utilized to perform the trans-septal puncture. The apparatus was withdrawn until it was in contact with the
fossa ovalis. The position was adjusted based on fluoroscopy and ultrasound images from ICE. Under fluoroscopic, hemodynamic and ICE ultrasound guidance, left atrium was cannulated by applying RF energy. Once atrial septum was cannulated, the
pigtail wire was advanced into the left atrium. The guide wire was advanced into the left superior pulmonary vein. Both the sheath and the dilator was advanced into the left atrium. The dilator with the needle was withdrawn. Blood was aspirated from
the Faradrive sheath and arterial blood confirmed. The sheath was flushed. Saline injection noted into the left atrium on ICE. The mapping catheter was advanced in the sheath into the left pulmonary vein. Left atrial pressure was measured.
3D Electroanatomic Mapping:
Using the HD Grid catheter advanced through sheath into the left atrium, an electroanatomic map (EAM) of the left atrium was created using Brook[place] mapping system. The map was used for localization of catheter position and tacking of ablation
lesions.
The EAM of the left atrium showed 4 pulmonary veins with all 4 veins electrically connected to the body the LA. It showed extensive areas of low voltage on the posterior and anterior wall of the LA in AF but had good signals in sinus rhythm. The LA
was dilated in size.
Following the EAM, preparation were made for ablation.
Ablation:
Ablation # 1: Pulmonary vein Isolation:
Glycopyrrolate 0.2 mg was given prior to the placement of ablation. Using Smart Plate pulsed field ablation system, pulmonary vein isolation was achieved. First the ablation catheter was placed in the LSPV and ostial ablation lesions were performed in
a counter clock roberts approach all around the PV ostium circumferentially. Then the catheter was placed on the antral location and multiple ablation lesions were placed circumferentially on the antrum of the vein.
In the similar fashion, the LIPV were isolated.
Then the catheter was moved to right sided veins. The ostial and antral ablations were placed as noted above.
Patient remained in atrial fibrillation.
Ablation #2: Posterior wall isolation:
Using the pulsed field ablation catheter, the catheter was placed between left superior pulmonary vein and right severe pulmonary vein with series of overlapping ablation lesions placed.
Using the pulsed field ablation catheter, the catheter was placed on the posterior wall and moved around the posterior wall to have adequate contact and ablations were placed isolating the posterior wall.
Cardioversion:
Once the PV isolation was achieved, decision was made to proceed with cardioversion. A 200 J biphasic shock was applied on the ry posterior Zoll patches and sinus rhythm was achieved. No significant pause noted.
EPS and Confirmation of the PVI and bidirectional block:
Following achievement of entrance block at the pulmonary veins, pacing from the HD catheter in each of the four veins at 10 milliamps for 2 milliseconds showed entrance and exit block. All PVI were rechecked at the end of the case and remained
isolated. Entrance and exit block were demonstrated in all veins.
Post ablation Electroanatomic mapping:
Once ablation was completed, the EAM of the LA was done again in sinus rhythm with excellent demarcation of LA myocardium and isolated antral tissue. There was only little scattered scar noted on the anterior wall.
The KATLIN had healthy signals and was not isolated.
The ICE of the LA post ablation showed persistently low flow despite good sinus rhythm and electrical signals noted.
Procedure End
ICE study was done again that showed no epicardial accumulation. No complications noted.
Following the completion of the EP study, catheters were removed. Protamine 40 mg was given at the end of the procedure and ACT was checked repeatedly. The sheaths were removed and hemostasis achieved with �Figure of 8� and manual compression after
acceptable ACT is achieved.
Left atrial Pressure:
Mean LA pressure was 19mmHg
Mean RA pressure was 17 mmHg.
Fluoro time:
12.5 min / 38.4 mGy
Estimated Blood loss:
<10 cc
Specimens Removed:
None.
Implants / Devices:
None
Urine output:
None
Packs / Drains/ Tubes:
None
Instrument / Sponge Count Correct:
Yes
Complications of the Procedure:
None
Condition of Patient at Time of Transfer:
Hemodynamically stable with no neurological or vascular compromise.
Summary:
Successful atrial fibrillation ablation with Pulsed Field approach for pulmonary vein isolation, roof dependent flutter ablation and posterior wall isolation.
Figures from the Procedure:
Figure 1: The electroanatomic mapping (EAM) of the left atrium with bipolar voltage (purple indicates normal electrical activity with moctezuma as no myocardial muscle electric activity indicating a line of block or scar.
[2024-07-13] MEDS: LASIX 20 MG IV (12:04)
--- NOTE | 2024-07-13 12:43 | W.PN.UPDATE ---
Update Note
Progress Note Update
83 yo WF s/p PVI (same day). She denies cp, sob, keith diet, EKG SR, R fem site c/d/i no HT VASCADE closure. She will take Eliquis tonight at home. She was given IV lasix for mild hypoxia which has improved. Activity restrictions reviewed. She will
f/u PATTERN MAKER in 2 weeks. She is for d/c home after 1pm if groin stable and able to void.
Procedure Performed:
Atrial fibrillation ablation with Pulsed-Field approach for pulmonary vein isolation
Posterior wall isolation
== END 2024-07-13 13:20 | disposition home or self-care (01) ==
LOC: CATH 05:59
PROVIDERS: ATTENDING PHYSICIAN Internal Medicine Cardiovascular Disease; FAMILY PHYSICIAN Family Medicine; OTHER PHYSICIAN Internal Medicine
DX: I48.19 Other persistent atrial fibrillation (principal); I13.0 Hypertensive heart and chronic kidney disease with heart failure and stage 1 through stage 4 chronic kidney disease, or unspecified chronic kidney disease; I50.33 Acute on chronic diastolic (congestive) heart failure; Z79.899 Other long term (current) drug therapy; E78.5 Hyperlipidemia, unspecified; J45.909 Unspecified asthma, uncomplicated; G47.33 Obstructive sleep apnea (adult) (pediatric); R73.03 Prediabetes; I26.99 Other pulmonary embolism without acute cor pulmonale; I25.10 Atherosclerotic heart disease of native coronary artery without angina pectoris; Z79.01 Long term (current) use of anticoagulants; Q24.5 Malformation of coronary vessels; F32.A Depression, unspecified; F41.9 Anxiety disorder, unspecified; K76.0 Fatty (change of) liver, not elsewhere classified; K21.9 Gastro-esophageal reflux disease without esophagitis; Z85.42 Personal history of malignant neoplasm of other parts of uterus; E07.9 Disorder of thyroid, unspecified; M85.80 Other specified disorders of bone density and structure, unspecified site; N18.30 Chronic kidney disease, stage 3 unspecified; Z90.49 Acquired absence of other specified parts of digestive tract; Z79.84 Long term (current) use of oral hypoglycemic drugs; Z88.8 Allergy status to other drugs, medicaments and biological substances; I48.92 Unspecified atrial flutter
CPT/HCPCS: C1759; C1892; 85347; 86900; 86901; 93005; 93656; 93657; C1730; C1732; C1733; C1760; C1766

== ENCOUNTER → 2024-07-19 10:49 | Outpatient (REF) | payer MEDICARE, OTHER, SELFPAY ==
[2024-07-19 11:33] LABS: % Basophils 0.8 % (0-2); % Eosinophils 4.2 % (0-6); % Immature Granulocytes 0.2 % (0-0.5); % Lymphocytes 39.8 % (20.5-51.1); % Monocytes 7.1 % (1.7-9.3); % Neutrophils 47.9 % (42.2-75.2); Absolute Basophils 0.1 10^3/uL (0-0.2); Absolute Eosinophils 0.3 10^3/uL (0-0.7); Absolute Lymphocytes 2.6 10^3/uL (1.2-3.4); Absolute Monocytes 0.5 10^3/uL (0.1-0.6); Absolute Neutrophils 3.2 10^3/uL (1.4-6.5); Hematocrit 42.4 % (37.0-47.0); Mean Platelet Volume 9.7 fL (7.4-10.4); Nucleated Red Blood Cells % 0 %; Platelet Count 210 10^3/uL (130-400); Red Blood Cell Count 4.82 10^6/uL (4.20-5.40); Red Cell Dist. Width 13.6 % (11.5-14.5); White Blood Cell Count 6.6 10^3/uL (4.8-10.8)
[2024-07-19 11:46] LABS: ALT (SGPT) 48 U/L (0-35); AST (SGOT) 33 U/L (14-36); Albumin 4.5 g/dl (3.5-5.0); Alkaline Phosphatase 82 U/L (38-126); Blood Urea Nitrogen 25 mg/dl (7-17); Calcium 10.8 mg/dl (8.4-10.2); Carbon Dioxide 29 mmol/L (22-30); Chloride 102 mmol/L (98-107); Glucose 104 mg/dl (70-99); HDL Cholesterol 85 mg/dl; LDL Cholesterol, Calculated 66 mg/dl; Potassium 4.2 mmol/L (3.5-5.1); Sodium 142 mmol/L (135-145); Total Bilirubin 0.8 mg/dl (0.2-1.3); Total Cholesterol 168 mg/dl (50-199); Triglyceride 88 mg/dl (10-149); Very Low Density Lipoprotein 17 mg/dl (0-30); eGFR 41.06
[2024-07-19 12:10] LABS: TSH Reflex To Free T4 2.64 uIU/ml (0.47-4.68)
[2024-07-19 14:36] LABS: Glycohemoglobin (HgbA1c) 5.8 % (4.0-5.6)
[2024-07-19 16:00] LABS: Intact PTH 55.5 pg/ml (13.6-85.8)
== END ==
LOC: OLABPV 10:49
PROVIDERS: ATTENDING PHYSICIAN Family Medicine
DX: R73.03 Prediabetes (principal); R79.89 Other specified abnormal findings of blood chemistry; E78.2 Mixed hyperlipidemia; E21.3 Hyperparathyroidism, unspecified; E04.2 Nontoxic multinodular goiter; R53.83 Other fatigue; Z13.29 Encounter for screening for other suspected endocrine disorder
CPT/HCPCS: 36415; 80053; 80061; 83036; 83970; 84443; 85025

== ENCOUNTER → 2024-08-01 10:54 | Outpatient (REF) | payer MEDICARE, OTHER, SELFPAY ==
[2024-08-01 12:01] LABS: Vitamin D, 25-OH*** 54.2 ng/mL (30-80)
[2024-08-01 12:09] LABS: ALT (SGPT) 40 U/L (0-35); AST (SGOT) 45 U/L (14-36); Albumin 4.3 g/dl (3.5-5.0); Alkaline Phosphatase 75 U/L (38-126); Blood Urea Nitrogen 25 mg/dl (7-17); Calcium 10.2 mg/dl (8.4-10.2); Carbon Dioxide 22 mmol/L (22-30); Chloride 105 mmol/L (98-107); Glucose 125 mg/dl (70-99); Potassium 4.2 mmol/L (3.5-5.1); Sodium 141 mmol/L (135-145); Total Bilirubin 0.9 mg/dl (0.2-1.3); Total Protein 6.9 g/dl (6.3-8.2); eGFR 56.25
== END ==
LOC: OLABPV 10:54
PROVIDERS: ATTENDING PHYSICIAN Family Medicine
DX: R79.89 Other specified abnormal findings of blood chemistry (principal); R73.03 Prediabetes; E21.3 Hyperparathyroidism, unspecified; E55.9 Vitamin D deficiency, unspecified
CPT/HCPCS: 36415; 80053; 82306

== ENCOUNTER 2024-08-07 15:39 | Emergency (ER) | payer MEDICARE, OTHER, SELFPAY ==
[2024-08-07] VITALS (13 sets, daily range): BP systolic 111–142; BP diastolic 57–90; BMI 31.2
--- NOTE | 2024-08-07 15:44 | ED.GENMED ---
ED Provider Triage
<Jeff Humphreys PA-C - Last Filed: 08/07/24 15:47>
-
Patient seen by provider in Triage?: Seen in Triage
Attestation: A medical screening examination has been initiated by a qualified medical provider. Based on the assessment performed at this time, it has been determined that an emergent medical condition may exist and the patient has been informed
that further medical evaluation and possible additional diagnostic testing may be needed.
HPI: Hx of afib and CHF. Ablation 3 weeks ago, feeling palpitations again and like she is in afib. Palpitations over the weekend. Also feels lightheaded. Sees Dr. High for cardiology. Dr. Quinones did ablation
GENERAL: Alert , in no apparent distress
EYE: No visual abnormalities.
NECK: Trachea midline
ENT: No visible abnormalities.
LUNGS: No acute respiratory distress
NEUROLOGICAL: Alert and oriented
SKIN: Skin intact. No visible changes.
MUSCULOSKELETAL: Moving extremities normally
PSYCH: Normal and appropriate interaction.
This is a medical evaluation conducted in person to initiate diagnostic evaluation and provide initial therapeutics. Please see further documentation by the treating clinician.
History of Present Illness
<Jeff Humphreys PA-C - Last Filed: 08/07/24 15:47>
General
Chief Complaint: Heart Rate Problem
Time Seen by Provider: 08/07/24 19:00
<Arya Turk MD - Last Filed: 08/07/24 20:51>
General
Source: patient
Exam Limitations: none
Nursing documentation reviewed up to this point in time: agreed with
History of Present Illness
History of Present Illness:
83-year-old female with a past medical history of hypertension, hyperlipidemia, CHF, atrial fibrillation on Eliquis, GERD, IBS who presents to the emergency room for evaluation of fatigue, shortness of breath and occasional palpitations. Patient
notably had cardiac ablation with Dr. Quinones on 07/13/2024; her normal sports internship is Dr. High. She says that about a week ago she started to have increased fatigue and shortness of breath when she did strenuous activity. She says that she
has been having occasional palpitations. She says that she has checked her pulse and noticed that her pulse rate has been irregular. She says that especially with activity her heart rate seems to go very high up into the 130s. She called to make
an appoint with her sports internship and they have her scheduled to be seen next week however given her significant symptoms she finally decided to come to the ER to be evaluated. She says she has no symptoms at rest aside from occasional palpitations
and her symptoms are mainly with exertion. She denies any chest pain. She denies any swelling in the legs. She denies any coughing. She denies any recent illness. No GI symptoms. She is on Eliquis and diltiazem and reports compliance without
any missed doses. She says that current symptoms are consistent with her typical A-fib symptoms.
Review of Systems
<Arya Turk MD - Last Filed: 08/07/24 20:51>
Review of Systems
All Other Systems: ROS reviewed and negative except as documented in HPI and ROS
Constitutional: Reports fatigue; Denies fever
Respiratory: Reports trouble breathing; Denies cough
Cardiac: Reports palpitations; Denies chest pain, diaphoresis or syncope
ABD/GI: Denies abdominal pain
: Denies flank pain
Musculoskeletal: Denies edema, neck pain or back pain
Neurological: Denies dizzy or headache
Phy Exam
<Arya Turk MD - Last Filed: 08/07/24 20:51>
Physical Exam
Physical Exam:
General: Awake, alert, oriented x3; no acute distress
Head: Normocephalic, atraumatic
Eyes: Conjunctiva normal
Throat: Airway intact, handling secretions
Neck: Trachea midline, no JVD
Lungs: Clear to auscultation bilaterally, no wheezing, rales, rhonchi
Heart: Regular rate and irregularly irregular rhythm, no murmurs, gallops, or rubs
Neuro: No gross deficits
Skin: no rash
Extremities: No edema in extremities, equal pulses in all extremities
Scores
<Arya Turk MD - Last Filed: 08/07/24 20:51>
Heart Failure Risk
Heart Failure Risk Score: Not Applicable
Heart Score for Chest Pain Patients
STEMI patient?: Not applicable
Withdrawal Assessment of Alcohol
Withdrawal Assessment Completed?: Not applicable
Course
<Jeff Humphreys PA-C - Last Filed: 08/07/24 15:47>
Orders/Labs/Results
Orders:
Orders
08/07/24 15:41
Electrocardiogram (*1) Urgent
Reason for Study: Tachycardia
EKG- Treatment ONCE
08/07/24 16:03
CMP [Comprehensive Metabolic Panel] Urgent
Complete Blood Count/With Diff Urgent
TSH Urgent
08/07/24 19:56
Propofol [Diprivan] 20 ml .ROUTE .STK-MED
08/07/24 20:08
Electrocardiogram (*1) Urgent
Reason for Study: Atrial Flutter
EKG- Treatment ONCE
Abnormal Lab Results
08/07/24
16:03
Absolute Lymphs (auto) 3.5 H 10^3/uL
(1.2-3.4)
BUN 22 H mg/dl
(7-17)
Creatinine 1.1 H mg/dL
(0.6-1.0)
Glucose 114 H mg/dl
(70-99)
Calcium 10.5 H mg/dl
(8.4-10.2)
AST 45 H U/L
(14-36)
ALT 45 H U/L
(0-35)
08/07/24 16:03
08/07/24 16:03
Vital Signs
Initial and Last Documented VS:
Initial Vital Signs
Temp Pulse Resp BP Pulse Ox
36.6 C 60 18 131/79 97
08/07/24 15:45 08/07/24 15:45 08/07/24 15:45 08/07/24 15:45 08/07/24 15:45
Last Documented Vital Signs
Temp Pulse Resp BP Pulse Ox
36.6 C 61 17 142/81 97
08/07/24 20:30 08/07/24 19:45 08/07/24 19:45 08/07/24 19:00 08/07/24 19:45
<Arya Turk MD - Last Filed: 08/07/24 20:51>
Orders/Labs/Results
Orders:
Orders
08/07/24 15:41
Electrocardiogram (*1) Urgent
Reason for Study: Tachycardia
EKG- Treatment ONCE
08/07/24 16:03
CMP [Comprehensive Metabolic Panel] Urgent
Complete Blood Count/With Diff Urgent
TSH Urgent
08/07/24 19:56
Propofol [Diprivan] 20 ml .ROUTE .STK-MED
08/07/24 20:08
Electrocardiogram (*1) Urgent
Reason for Study: Atrial Flutter
EKG- Treatment ONCE
Abnormal Lab Results
08/07/24
16:03
Absolute Lymphs (auto) 3.5 H 10^3/uL
(1.2-3.4)
BUN 22 H mg/dl
(7-17)
Creatinine 1.1 H mg/dL
(0.6-1.0)
Glucose 114 H mg/dl
(70-99)
Calcium 10.5 H mg/dl
(8.4-10.2)
AST 45 H U/L
(14-36)
ALT 45 H U/L
(0-35)
08/07/24 16:03
08/07/24 16:03
Vital Signs
Initial and Last Documented VS:
Initial Vital Signs
Temp Pulse Resp BP Pulse Ox
36.6 C 60 18 131/79 97
08/07/24 15:45 08/07/24 15:45 08/07/24 15:45 08/07/24 15:45 08/07/24 15:45
Last Documented Vital Signs
Temp Pulse Resp BP Pulse Ox
36.6 C 61 17 142/81 97
08/07/24 20:30 08/07/24 19:45 08/07/24 19:45 08/07/24 19:00 08/07/24 19:45
Procedures
<Arya Turk MD - Last Filed: 08/07/24 20:51>
Cardioversion
Indication:: Afib
Performed by:: Arya Turk MD
Synchronized?: Yes
Energy Used: 200 joules
Number of attempts: 1
Successful?: Yes
ASA Risk Score: Class II
Any reaction or bad outcome to prior sedation/anesthesia?: No history of a reaction
Sedation level to be attained: moderate
Chart and allergies reviewed: Yes
Patient reassessed prior to sedation: Yes
Time out completed at (validating right patient & procedure): 19:59
History of difficult intubation: No
Airway free of obstruction: Yes
Patient has a gag reflex: Yes
Patient is able to open mouth: Yes
Patient has no dentures: Yes
Patient has no loose teeth: Yes
Medication administered by Provider during Moderate Sedation: IV Propofol (mg)
Total dose administered: 40
Time drug administered: 19:59
Start Time: 19:59
Stop Time: 20:15
<Arya Turk MD - Last Filed: 08/07/24 20:51>
MDM/Problems Addressed
Differential Diagnosis Includes:
Symptomatic A-fib, anemia, CHF
MDM/Problems Addressed:
83-year-old female presents for evaluation of shortness of breath and fatigue, palpitations consistent with prior A-fib symptoms; she has noted irregular heart rhythm and labile heart rate. She is 3 weeks status post cardiac ablation; scheduled to
see cardiology next week but due to symptoms decided to come to the ER tonight. Minimally symptomatic at rest. Vital signs normal here including heart rate in the 70s on my assessment. EKG does show what looks like atrial flutter with variable
conduction. Labs were sent off including a CBC which showed no anemia, CMP which showed no clinically significant abnormalities. Thyroid studies acceptable. Case discussed with cardiology�reasonable to offer ED cardioversion given significant
symptoms. I do long discussion with patient and explained risks and benefits of procedure as well as alternatives�patient wishes to proceed with ED cardioversion.
Patient was cardioverted successfully as documented procedure note. She is feeling very well on reassessment after procedure, asymptomatic. Vitals are stable. Will continue to monitor after procedure if she remains awake alert, asymptomatic with
stable vitals can be discharged with planned cardiology follow-up next week.
Chronic conditions affecting care:
A-fib/flutter
<Arya Turk MD - Last Filed: 08/07/24 20:51>
*Pulse Oximetry
Patient hypoxic: no
*EKG
Interpreted by ED Provider?: Yes
Heart Rate: 60
Rate: normal
Rhythm: atrial flutter
[place]: normal axis
Ischemia: no ischemia
*Critical Care Note
Total Time (30-74mins, 75-104mins- exclusive of procedures): Not Applicable
Data Reviewed
Review of Other/Old Records Reveals: Labs and Records
Source: patient and family (Daughter)
<Arya Turk MD - Last Filed: 08/07/24 20:51>
Patient Management
Discussion with other providers: [employer]ator Of [employer] (Discussed with cardiology)
ED Attending Note
<Jeff Humphreys PA-C - Last Filed: 08/07/24 15:47>
-
Portions of this chart may have been created with voice recognition software.� Occasional wrong word or��sound alike� substitutions may have occurred due to the inherent limitations of voice recognition software.
Discharge Plan
Departure
Patient Disposition: Home (Routine Discharge)
Date of Disposition: 08/07/24
Time of Disposition: 20:51
Patient with high blood pressure during this ER visit?: No
Discharge Problem:
Atrial fibrillation status post cardioversion
Instructions: Atrial Fibrillation (DC)
Prescriptions:
No Action
cyanocobalamin (vitamin B-12) 1,000 MCG tablet
500 mcg PO DAILY
escitalopram oxalate 20 MG tablet
20 mg PO DAILY
omeprazole 20 MG tablet,delayed release (DR/EC)
20 mg PO DAILY
cholecalciferol (vitamin D3) [Vitamin D3] 1,000 UNIT capsule
5,000 unit PO DAILY
Culturelle 10 billion cell Capsule
1 cap PO DAILY
dapagliflozin propanediol [Farxiga] 10 mg Tablet
10 mg PO DAILY
furosemide 40 mg tablet
20 mg PO BID
alendronate 70 mg tablet
70 mg PO GOULD
rosuvastatin 10 mg tablet
10 mg PO HS
Eliquis 5 mg Tablet
5 mg PO BID 30 Days Qty: 60 0RF
diltiazem HCl 240 mg Capsule,Extended Release 24 Hr
240 mg PO DAILY
valsartan 40 mg Tablet
40 mg PO DAILY
albuterol sulfate [Ventolin HFA] 90 mcg/actuation HFA aerosol inhaler
2 puff inhalation DAILY
budesonide-formoterol [Breyna] 80-4.5 mcg/actuation Hfa Aerosol Inhaler
2 puff INHALATION BID
Referrals:
Mc High MD [Active] - Call in 1-3 days for appt
Activity Restrictions/Additional Instructions:
Thank you for visiting the Emergency Department at [facility].
1. Please schedule a follow up appointment as directed. Call first thing tomorrow morning to make an appointment.
2. If indicated, please take your medications as instructed and indicated on discharge paperwork.
3. If any of your symptoms do not improve, or persist, or become more severe within 6-12 hours, please return to the emergency department for further care.
4. Please return to the emergency department if you develop a headache, neck pain/stiffness, fever greater than 100.4F, chest pain, shortness of breath, persistent nausea, vomiting, slurred speech, difficulty walking, numbness/tingling, weakness,
signs of infection or any other symptoms that are worrisome to you.
Please call [phone] if you have any questions.
Interventions
Interventions:
*Risk Screen - Suicide Last Done: 08/07/24 15:45
*General Assessment Last Done: 08/07/24 15:45
*ED COVID-19 Vaccine History Last Done: 08/07/24 15:45
ED- Cardiac Assessment Last Done: 08/07/24 19:05
ED- Pulmonary Assessment Last Done: 08/07/24 19:05
Discharge Date and Time
Print Language: GEORGIAN
[2024-08-07 16:21] LABS: % Basophils 0.5 % (0-2); % Eosinophils 2.9 % (0-6); % Immature Granulocytes 0.1 % (0-0.5); % Lymphocytes 45.5 % (20.5-51.1); % Monocytes 8.2 % (1.7-9.3); % Neutrophils 42.8 % (42.2-75.2); Absolute Eosinophils 0.2 10^3/uL (0-0.7); Absolute Lymphocytes 3.5 10^3/uL (1.2-3.4); Absolute Monocytes 0.6 10^3/uL (0.1-0.6); Absolute Neutrophils 3.3 10^3/uL (1.4-6.5); Hematocrit 45.9 % (37.0-47.0); Hemoglobin 15.3 g/dL (12.0-16.0); Mean Corp Hgb Conc. 33.3 g/dL (33.0-37.0); Mean Corpuscular Hgb 30.5 pg (27.0-31.0); Mean Corpuscular Volume 91.6 fL (81.0-99.0); Nucleated Red Blood Cells % 0 %; Platelet Count 215 10^3/uL (130-400); Red Blood Cell Count 5.01 10^6/uL (4.20-5.40); Red Cell Dist. Width 13.6 % (11.5-14.5); White Blood Cell Count 7.6 10^3/uL (4.8-10.8)
[2024-08-07 16:32] LABS: ALT (SGPT) 45 U/L (0-35); AST (SGOT) 45 U/L (14-36); Albumin 4.6 g/dl (3.5-5.0); Alkaline Phosphatase 92 U/L (38-126); Blood Urea Nitrogen 22 mg/dl (7-17); Calcium 10.5 mg/dl (8.4-10.2); Carbon Dioxide 26 mmol/L (22-30); Chloride 101 mmol/L (98-107); Glucose 114 mg/dl (70-99); Sodium 141 mmol/L (135-145); Total Bilirubin 0.6 mg/dl (0.2-1.3); Total Protein 7.4 g/dl (6.3-8.2); eGFR 50.17
[2024-08-07 17:02] LABS: TSH 1.61 uIU/ml (0.47-4.68)
== END 2024-08-07 21:23 | disposition home or self-care (01) ==
LOC: EMR 15:39
PROVIDERS: Emergency Medicine; EMERGENCY PHYSICIAN Emergency Medicine
DX: I48.91 Unspecified atrial fibrillation (principal); E78.5 Hyperlipidemia, unspecified; I11.0 Hypertensive heart disease with heart failure; I50.9 Heart failure, unspecified; K21.9 Gastro-esophageal reflux disease without esophagitis; Z79.01 Long term (current) use of anticoagulants
CPT/HCPCS: 92960; 99152; 99285; 80053; 84443; 85025; 93005

== ENCOUNTER → 2024-11-08 11:03 | Outpatient (REF) | payer MEDICARE, OTHER, SELFPAY ==
[2024-11-08 11:41] LABS: % Eosinophils 4.6 % (0-6); % Immature Granulocytes 0.2 % (0-0.5); % Lymphocytes 36.3 % (20.5-51.1); % Monocytes 7.1 % (1.7-9.3); % Neutrophils 50.8 % (42.2-75.2); Absolute Basophils 0.1 10^3/uL (0-0.2); Absolute Eosinophils 0.3 10^3/uL (0-0.7); Absolute Lymphocytes 2.1 10^3/uL (1.2-3.4); Absolute Monocytes 0.4 10^3/uL (0.1-0.6); Hematocrit 44.5 % (37.0-47.0); Hemoglobin 14.7 g/dL (12.0-16.0); Mean Corpuscular Volume 90.8 fL (81.0-99.0); Mean Platelet Volume 9.8 fL (7.4-10.4); Nucleated Red Blood Cells % 0 %; Platelet Count 215 10^3/uL (130-400); Red Cell Dist. Width 13.4 % (11.5-14.5); White Blood Cell Count 5.9 10^3/uL (4.8-10.8)
[2024-11-08 12:40] LABS: ALT (SGPT) 30 U/L (0-35); AST (SGOT) 32 U/L (14-36); Albumin 4.1 g/dl (3.5-5.0); Alkaline Phosphatase 83 U/L (38-126); Blood Urea Nitrogen 18 mg/dl (7-17); Calcium 10.1 mg/dl (8.4-10.2); Carbon Dioxide 27 mmol/L (22-30); Chloride 106 mmol/L (98-107); Glucose 119 mg/dl (70-99); HDL Cholesterol 107 mg/dl; LDL Cholesterol, Calculated 71 mg/dl; Potassium 3.9 mmol/L (3.5-5.1); Sodium 139 mmol/L (135-145); Total Bilirubin 0.7 mg/dl (0.2-1.3); Total Cholesterol 192 mg/dl (50-199); Total Protein 6.6 g/dl (6.3-8.2); Triglyceride 74 mg/dl (10-149); Very Low Density Lipoprotein 14 mg/dl (0-30); eGFR > 60.00
[2024-11-08 13:05] LABS: TSH Reflex To Free T4 3.29 uIU/ml (0.47-4.68)
[2024-11-08 13:26] LABS: Glycohemoglobin (HgbA1c) 5.6 % (4.0-5.6)
[2024-11-11 09:32] LABS: Intact PTH 125.6 pg/ml (13.6-85.8)
== END ==
LOC: OLABPV 11:03
PROVIDERS: ATTENDING PHYSICIAN Family Medicine
DX: E78.2 Mixed hyperlipidemia (principal); R53.83 Other fatigue; R79.89 Other specified abnormal findings of blood chemistry; R73.03 Prediabetes; E21.3 Hyperparathyroidism, unspecified; E04.2 Nontoxic multinodular goiter
CPT/HCPCS: 36415; 80053; 80061; 83036; 83970; 84443; 85025

== ENCOUNTER 2025-01-09 11:22 | Emergency (ER) | payer MEDICARE, OTHER, SELFPAY ==
[2025-01-09] VITALS (17 sets, daily range): BP systolic 116–142; BP diastolic 61–83; BMI 34.0
[2025-01-09 11:50] LABS: % Basophils 0.5 % (0-2); % Eosinophils 2.7 % (0-6); % Immature Granulocytes 0.2 % (0-0.5); % Lymphocytes 33.8 % (20.5-51.1); % Monocytes 5.8 % (1.7-9.3); Absolute Eosinophils 0.2 10^3/uL (0-0.7); Absolute Lymphocytes 1.9 10^3/uL (1.2-3.4); Absolute Monocytes 0.3 10^3/uL (0.1-0.6); Absolute Neutrophils 3.1 10^3/uL (1.4-6.5); Hematocrit 46.7 % (37.0-47.0); Hemoglobin 15.9 g/dL (12.0-16.0); Mean Corpuscular Hgb 30.6 pg (27.0-31.0); Mean Corpuscular Volume 89.8 fL (81.0-99.0); Nucleated Red Blood Cells % 0 %; Platelet Count 201 10^3/uL (130-400); Red Cell Dist. Width 13.2 % (11.5-14.5); White Blood Cell Count 5.5 10^3/uL (4.8-10.8)
[2025-01-09 12:28] LABS: NT-proBNP 498 pg/ml
[2025-01-09 12:52] LABS: ALT (SGPT) 30 U/L (0-35); AST (SGOT) 28 U/L (14-36); Albumin 4.6 g/dl (3.5-5.0); Alkaline Phosphatase 79 U/L (38-126); Blood Urea Nitrogen 16 mg/dl (7-17); Calcium 9.9 mg/dl (8.4-10.2); Carbon Dioxide 23 mmol/L (22-30); Chloride 108 mmol/L (98-107); Glucose 151 mg/dl (70-99); Potassium 3.9 mmol/L (3.5-5.1); Sodium 141 mmol/L (135-145); Total Bilirubin 0.6 mg/dl (0.2-1.3)
--- NOTE | 2025-01-09 14:41 | ED.GENMED ---
History of Present Illness
<Jeff Humphreys PA-C - Last Filed: 01/09/25 18:51>
General
Chief Complaint: Heart Rate Problem
Source: patient and records
Time Seen by Provider: 01/09/25 14:08
History of Present Illness
History of Present Illness:
84-year-old female with past medical history of atrial fibrillation, CHF, GERD presenting to the emergency department for evaluation after she woke up today feeling as if she were in an episode of A-fib noting her heart rate was moving around
between 60 bpm and 120 beats, noting she felt little short of breath and lightheaded (these symptoms are now resolved at time of my exam) but never had any chest pain, palpitations, diaphoresis, exertional dyspnea or orthopnea. She did note that
over the weekend she felt as if her ankles were little bit more swollen than usual. She denies any cough, recent illnesses, fevers or infectious symptoms. Patient states she is compliant with her Eliquis, never misses any dosages. She does note
that recently she had her Cardizem tapered back due to intermittent episodes of low blood pressure but she also report good compliance with her Cardizem too.
Past History
<Jeff Humphreys PA-C - Last Filed: 01/09/25 18:51>
Past History
ED Past Medical History: Arrthythmia, CHF and GERD
ED Past Surgical History: Cardiac, Cholecystectomy and Gynecological
Social History
Tobacco: Non-smoker
Alcohol: None
Drug: None
Personal:
Living: with family
Review of Systems
<Jeff Humphreys PA-C - Last Filed: 01/09/25 18:51>
Review of Systems
All Other Systems: ROS reviewed and negative except as documented in HPI and ROS
Phy Exam
<Jeff Humphreys PA-C - Last Filed: 01/09/25 18:51>
Physical Exam
Physical Exam:
GENERAL: Alert , in no apparent distress
EYE: pupils equal and reactive
NECK: Supple, no significant adenopathy.
ENT: o/p clr, mmm.
CARDIAC: Irregularly irregular, heart rate between 80 and 95 bpm at rest. This did increase to 130 bpm while ambulating
LUNGS: Clear breath sounds bilaterally, no acute respiratory distress,
ABDOMEN: Soft, without focal tenderness, no r/g, no cvat
NEUROLOGICAL: Alert and oriented
SKIN: Warm and dry, skin intact.
MUSCULOSKELETAL: Minimal to trace bilateral nonpitting ankle edema, well perfused.
PSYCH: Normal and appropriate interaction.
Scores
<Jeff Humphreys PA-C - Last Filed: 01/09/25 18:51>
[id number] Score for Afib Stroke Risk
Age in Years (65=0, 65-74=1, >/=75=2): > or = 75
Sex (Female=+1): Female
Congestive Heart Failure History (Yes=+1): Yes
Hypertension History (Yes=+1): No
Stroke/TIA/Thromboembolism History (Yes=+2): No
Vascular Disease History (Yes=+1): No
Diabetes Mellitus (Yes=+1): No
Score: 4
Anticoagulation Recommendations: Recommend anticoagulation (as validated in nonvalvular fib)
Heart Failure Risk
Heart Failure Risk Score: Not Applicable
Heart Score for Chest Pain Patients
STEMI patient?: Not applicable
Withdrawal Assessment of Alcohol
Withdrawal Assessment Completed?: Not applicable
<Arya Turk MD - Last Filed: 01/09/25 15:15>
[id number] Score for Afib Stroke Risk
Score: 4
Anticoagulation Recommendations: Recommend anticoagulation (as validated in nonvalvular fib)
Course
<Jeff Humphreys PA-C - Last Filed: 01/09/25 18:51>
Orders/Labs/Results
Orders:
Orders
01/09/25 11:30
Electrocardiogram (*1) Urgent
Reason for Study: Shortness of Breath
01/09/25 11:31
EKG- Treatment ONCE
01/09/25 11:39
Complete Blood Count/With Diff Urgent
Comprehensive Metabolic Panel Urgent
NT-proBNP Urgent
01/09/25 14:50
Propofol [Diprivan] 20 ml .ROUTE .STK-MED
01/09/25 15:24
Electrocardiogram (*1) Urgent
Reason for Study: Atrial Fibrillation
EKG- Treatment ONCE
Abnormal Lab Results
01/09/25
11:39
Chloride 108 H mmol/L
(98-107)
Glucose 151 H mg/dl
(70-99)
01/09/25 11:39
01/09/25 11:39
Vital Signs
Initial and Last Documented VS:
Initial Vital Signs
Temp Pulse Resp BP Pulse Ox
98.3 F 58 18 142/65 94
01/09/25 11:26 01/09/25 11:26 01/09/25 11:26 01/09/25 11:26 01/09/25 11:26
Last Documented Vital Signs
Temp Pulse Resp BP Pulse Ox
97.6 F 68 14 117/65 97
01/09/25 16:02 01/09/25 16:02 01/09/25 16:02 01/09/25 16:02 01/09/25 16:02
Log Rafter consulted with Physician
Log Rafter consulted with physician?: Yes
Name of Physician Consulted: Burke
<Arya Turk MD - Last Filed: 01/09/25 15:15>
Orders/Labs/Results
Orders:
Orders
01/09/25 11:30
Electrocardiogram (*1) Urgent
Reason for Study: Shortness of Breath
01/09/25 11:31
EKG- Treatment ONCE
01/09/25 11:39
Complete Blood Count/With Diff Urgent
Comprehensive Metabolic Panel Urgent
NT-proBNP Urgent
01/09/25 14:50
Propofol [Diprivan] 20 ml .ROUTE .STK-MED
01/09/25 15:24
Electrocardiogram (*1) Urgent
Reason for Study: Atrial Fibrillation
EKG- Treatment ONCE
Abnormal Lab Results
01/09/25
11:39
Chloride 108 H mmol/L
(98-107)
Glucose 151 H mg/dl
(70-99)
01/09/25 11:39
01/09/25 11:39
Vital Signs
Initial and Last Documented VS:
Initial Vital Signs
Temp Pulse Resp BP Pulse Ox
98.3 F 58 18 142/65 94
01/09/25 11:26 01/09/25 11:26 01/09/25 11:26 01/09/25 11:26 01/09/25 11:26
Last Documented Vital Signs
Temp Pulse Resp BP Pulse Ox
97.6 F 68 14 117/65 97
01/09/25 16:02 01/09/25 16:02 01/09/25 16:02 01/09/25 16:02 01/09/25 16:02
Procedures
<Jeff Humphreys PA-C - Last Filed: 01/09/25 18:51>
Cardioversion
Indication:: Afib
Performed by:: Dr. Turk/Jeff Humphreys
Synchronized?: Yes
Energy Used: 200 joules
Number of attempts: 1
Successful?: Yes
Complications: none
ASA Risk Score: Class II
Any reaction or bad outcome to prior sedation/anesthesia?: No history of a reaction
Sedation level to be attained: moderate
Chart and allergies reviewed: Yes
Patient reassessed prior to sedation: Yes
Time out completed at (validating right patient & procedure): 15:19
History of difficult intubation: No
Airway free of obstruction: Yes
Patient has a gag reflex: Yes
Patient is able to open mouth: Yes
Patient has no dentures: Yes
Patient has no loose teeth: Yes
Medication administered by Provider during Moderate Sedation: IV Propofol (mg)
Total dose administered: 40
Time drug administered: 15:19
Start Time: 15:19
Stop Time: 15:48
<Jeff Humphreys PA-C - Last Filed: 01/09/25 18:51>
MDM/Problems Addressed
Differential Diagnosis Includes:
Atrial fibrillation, valvular dysfunction, CHF exacerbation, no chest pain to suggest ACS
MDM/Problems Addressed:
84-year-old female presenting to the emergency department for evaluation of some mild shortness of breath and lightheadedness, noting her heart rate fluctuating stating she felt as if she were in an episode of A-fib. She notes she had an ablation
about 1 year ago and was cardioverted this past July. She has not had any complications since. Patient's heart rate during my exam was around 80 to 85 bpm. We did discuss different management options including continuing her home medications
and seeing if her heart would spontaneously revert back to a normal sinus rhythm and initially patient wanted to try this however when she ambulated her heart rate went back to higher than 130 bpm. Patient now prefers to be cardioverted. See above
procedure note. Plan to continue outpatient follow-up with cardiology.
Chronic conditions affecting care: Arrhythmia
Acute Exacerbation and/or Progression of Chronic Illness: Arrhythmia
<Jeff Humphreys PA-C - Last Filed: 01/09/25 18:51>
*Pulse Oximetry
Patient hypoxic: no
*EKG
Heart Rate: 67
Rate: normal
Rhythm: a-fib
[place]: normal axis
Ischemia: T-wave inversion (Inferolateral)
*Boilermaker Mechanic Interpretation
Rate: normal
Rhythm: a-fib
*Critical Care Note
Total Time (30-74mins, 75-104mins- exclusive of procedures): Not Applicable
Data Reviewed
Review of Other/Old Records Reveals: Labs, Records and Testing
<Jeff Humphreys PA-C - Last Filed: 01/09/25 18:51>
Patient Management
Escalation/DeEscalation of care consider admission/obs:
Patient cardioverted without any complications. Following his cardioversion she is awake alert and oriented, able to ambulate without any complications or need for assistance. Her daughter came to the emergency department and will be driving the
patient home. Patient advised to contact her securities consultant for follow-up. She is aware of return precautions to the ER.
ED Attending Note
<Jeff Humphreys PA-C - Last Filed: 01/09/25 18:51>
-
Portions of this chart may have been created with voice recognition software.� Occasional wrong word or��sound alike� substitutions may have occurred due to the inherent limitations of voice recognition software.
<Arya Turk MD - Last Filed: 01/09/25 15:15>
ED Attending Note
Patient seen and examined by attending physician: Yes
ED Attending Note:
I have seen and evaluated the patient with a [id number] encounter. I have spoken to the advance practicer provider and involved in the medical history, the physical exam, medical decision making.
Evaluation and management service: agree unless noted differently below.
Results interpretation: agree unless noted differently below.
Focused HPI: 84-year-old female with history as noted presents for evaluation of dizziness and palpitations similar to prior episodes of A-fib. Patient says that she woke up this morning and while she was getting ready felt mildly dizzy and checked
her heart rate and noted to be she was tachycardic. She says heart rate has been fluctuating between 60 and 120 in all day. Came to the ER for evaluation. She has had similar symptoms with A-fib in the past, was cardioverted here about 5 months
ago. She is on Eliquis and reports compliance without any missed doses.
Physical exam: Awake alert no distress. Tachycardic with irregular regular rhythm on auscultation. No edema in the legs. Lungs sound clear.
Medical Decision Makin-year-old female presents with symptomatic A-fib. Heart rate labile here initially rate controlled but then increased to the 120s. Labs sent off and unremarkable. Discussed with patient we will plan for cardioversion
for symptomatic A-fib.
Discharge Plan
Departure
Patient Disposition: Home (Routine Discharge)
Date of Disposition: 01/09/25
Time of Disposition: 16:02
Patient with high blood pressure during this ER visit?: No
Discharge Problem:
Atrial fibrillation
Instructions: Atrial Fibrillation (DC), MODERATE SEDATION ADULT
Prescriptions:
No Action
cyanocobalamin (vitamin B-12) 1,000 MCG tablet
500 mcg PO DAILY
escitalopram oxalate 20 MG tablet
20 mg PO DAILY
omeprazole 20 MG tablet,delayed release (DR/EC)
20 mg PO DAILY
cholecalciferol (vitamin D3) [Vitamin D3] 1,000 UNIT capsule
5,000 unit PO DAILY
Culturelle 10 billion cell Capsule
1 cap PO DAILY
dapagliflozin propanediol [Farxiga] 10 mg Tablet
10 mg PO DAILY
furosemide 40 mg tablet
20 mg PO BID
alendronate 70 mg tablet
70 mg PO GOULD
rosuvastatin 10 mg tablet
10 mg PO HS
Eliquis 5 mg Tablet
5 mg PO BID 30 Days Qty: 60 0RF
diltiazem HCl 240 mg Capsule,Extended Release 24 Hr
240 mg PO DAILY
valsartan 40 mg Tablet
40 mg PO DAILY
albuterol sulfate [Ventolin HFA] 90 mcg/actuation HFA aerosol inhaler
2 puff inhalation DAILY
budesonide-formoterol [Breyna] 80-4.5 mcg/actuation Hfa Aerosol Inhaler
2 puff INHALATION BID
Interventions
Interventions:
*Risk Screen - Suicide Last Done: 01/09/25 11:26
*General Assessment Last Done: 01/09/25 11:26
*Neglect/Abuse Screening Last Done: 01/09/25 11:30
*ED- Fall Risk Assessment Last Done: 01/09/25 16:32
*ED COVID-19 Vaccine History Last Done: 01/09/25 11:26
*Nursing Disposition Last Done: 01/09/25 16:32
ED- Cardiac Assessment Last Done: 01/09/25 13:55
ED- Pulmonary Assessment Last Done: 01/09/25 13:55
Discharge Date and Time
Discharge Date/Time: 01/09/25 16:39
Print Language: SINHALA
== END 2025-01-09 16:39 | disposition home or self-care (01) ==
LOC: EMR 11:22
PROVIDERS: Emergency Medicine; EMERGENCY PHYSICIAN Emergency Medicine; FAMILY PHYSICIAN Family Medicine
DX: R42 Dizziness and giddiness (principal); I48.91 Unspecified atrial fibrillation; I50.9 Heart failure, unspecified; K21.9 Gastro-esophageal reflux disease without esophagitis; Z79.01 Long term (current) use of anticoagulants; Z79.899 Other long term (current) drug therapy; Z90.49 Acquired absence of other specified parts of digestive tract; Z88.8 Allergy status to other drugs, medicaments and biological substances
CPT/HCPCS: 92960; 99285; 99152; 80053; 83880; 85025; 93005

== ENCOUNTER → 2025-01-23 12:42 | Outpatient (REF) | payer MEDICARE, OTHER, SELFPAY ==
[2025-01-23 13:52] LABS: Ionized Calcium 1.27 mMOL/L (1.15-1.33)
[2025-01-23 14:38] LABS: ALT (SGPT) 40 U/L (0-35); AST (SGOT) 33 U/L (14-36); Albumin 4.5 g/dl (3.5-5.0); Alkaline Phosphatase 86 U/L (38-126); Blood Urea Nitrogen 21 mg/dl (7-17); Calcium 10.4 mg/dl (8.4-10.2); Carbon Dioxide 26 mmol/L (22-30); Chloride 104 mmol/L (98-107); Glucose 104 mg/dl (70-99); Potassium 4.2 mmol/L (3.5-5.1); Sodium 140 mmol/L (135-145); Total Bilirubin 0.8 mg/dl (0.2-1.3); Total Protein 6.8 g/dl (6.3-8.2)
[2025-01-23 14:49] LABS: Vitamin D, 25-OH*** 65.2 ng/mL (30-80)
[2025-01-24 12:17] LABS: Intact PTH 152.3 pg/ml (13.6-85.8)
== END ==
LOC: RAD 12:42
PROVIDERS: ATTENDING PHYSICIAN Internal Medicine Endocrinology, Diabetes & Metabolism; FAMILY PHYSICIAN Family Medicine
DX: M81.0 Age-related osteoporosis without current pathological fracture (principal); R79.89 Other specified abnormal findings of blood chemistry; E55.9 Vitamin D deficiency, unspecified
CPT/HCPCS: 36415; 77080; 77081; 80053; 82306; 82330; 83970

== ENCOUNTER → 2025-04-03 11:03 | Outpatient (REF) | payer MEDICARE, OTHER, SELFPAY ==
[2025-04-03 12:34] LABS: Hematocrit 44.2 % (37.0-47.0); Hemoglobin 14.8 g/dL (12.0-16.0); Mean Corp Hgb Conc. 33.5 g/dL (33.0-37.0); Mean Corpuscular Volume 90.0 fL (81.0-99.0); Nucleated Red Blood Cells % 0 %; Platelet Count 188 10^3/uL (130-400); Red Cell Dist. Width 13.6 % (11.5-14.5)
[2025-04-03 13:51] LABS: Glycohemoglobin (HgbA1c) 5.4 % (4.0-5.6)
[2025-04-03 14:10] LABS: ALT (SGPT) 39 U/L (0-35); AST (SGOT) 30 U/L (14-36); Albumin 4.3 g/dl (3.5-5.0); Alkaline Phosphatase 74 U/L (38-126); Blood Urea Nitrogen 22 mg/dl (7-17); Calcium 10.2 mg/dl (8.4-10.2); Carbon Dioxide 24 mmol/L (22-30); Chloride 110 mmol/L (98-107); Glucose 110 mg/dl (70-99); HDL Cholesterol 72 mg/dl; LDL Cholesterol, Calculated 67 mg/dl; Potassium 4.0 mmol/L (3.5-5.1); Sodium 141 mmol/L (135-145); Total Protein 6.8 g/dl (6.3-8.2); Very Low Density Lipoprotein 16 mg/dl (0-30); eGFR 55.90
== END ==
LOC: OLABPV 11:03
PROVIDERS: ATTENDING PHYSICIAN Family Medicine
DX: E04.2 Nontoxic multinodular goiter (principal); R53.83 Other fatigue; R79.89 Other specified abnormal findings of blood chemistry; R73.03 Prediabetes; E21.3 Hyperparathyroidism, unspecified; E78.2 Mixed hyperlipidemia
CPT/HCPCS: 36415; 80053; 80061; 83036; 83970; 84443; 85025

== ENCOUNTER 2025-04-27 09:49 | Day surgery (SDC) | payer MEDICARE, OTHER, SELFPAY ==
--- NOTE | 2025-04-27 11:11 | ITS.CL.CARDI ---
Application Developer Manager - Cardioversion
Cardioversion
Procedure Report:
Date of Procedure: 04/27/25
Procedure: Cardioversion
Indication: Symptomatic atrial flutter
Performing Physician: Abel Kwok MD
Technique: The patient was brought to the holding area. Signed informed consent was obtained. A time out was called and performed. The patient was anesthetized by the anesthesia service. Anticoagulation status was reviewed and appropriate. R2 pads
were placed anteriorly and posteriorly. A 200 J synchronized biphasic shock restored normal sinus rhythm without significant bradycardia. There were no complications.
Conclusion: Uncomplicated cardioversion from atrial flutter to sinus rhythm.
Recommendation: Routine post cardioversion care. Continue document processing specialist anticoagulation.
== END 2025-04-27 11:50 | disposition home or self-care (01) ==
LOC: CATH 09:49
PROVIDERS: ATTENDING PHYSICIAN Internal Medicine Cardiovascular Disease; FAMILY PHYSICIAN Family Medicine; OTHER PHYSICIAN Internal Medicine
DX: I48.92 Unspecified atrial flutter (principal); I48.19 Other persistent atrial fibrillation; I11.0 Hypertensive heart disease with heart failure; I50.32 Chronic diastolic (congestive) heart failure; E78.5 Hyperlipidemia, unspecified; K21.9 Gastro-esophageal reflux disease without esophagitis; G47.33 Obstructive sleep apnea (adult) (pediatric); Z85.828 Personal history of other malignant neoplasm of skin; Z85.89 Personal history of malignant neoplasm of other organs and systems; Z79.84 Long term (current) use of oral hypoglycemic drugs; Z79.01 Long term (current) use of anticoagulants
CPT/HCPCS: 92960; 93005

== ENCOUNTER → 2025-05-24 15:02 | Outpatient (REF) | payer MEDICARE, OTHER, SELFPAY | LOC: RCS 15:02 | PROVIDERS: ATTENDING PHYSICIAN Nurse Practitioner; FAMILY PHYSICIAN Family Medicine | DX: I50.32 Chronic diastolic (congestive) heart failure (principal) | CPT/HCPCS: 93306 ==

== ENCOUNTER → 2025-07-11 11:49 | Outpatient (REF) | payer MEDICARE, OTHER, SELFPAY ==
[2025-07-11 13:55] LABS: Hematocrit 45.4 % (37.0-47.0); Hemoglobin 15.1 g/dL (12.0-16.0); Mean Corp Hgb Conc. 33.3 g/dL (33.0-37.0); Mean Corpuscular Volume 88.8 fL (81.0-99.0); Nucleated Red Blood Cells % 0 %; Platelet Count 237 10^3/uL (130-400); Red Cell Dist. Width 12.6 % (11.5-14.5)
[2025-07-11 14:03] LABS: ALT (SGPT) 29 U/L (0-35); AST (SGOT) 27 U/L (14-36); Albumin 4.8 g/dl (3.5-5.0); Alkaline Phosphatase 84 U/L (38-126); Blood Urea Nitrogen 20 mg/dl (7-17); Calcium 10.1 mg/dl (8.4-10.2); Carbon Dioxide 26 mmol/L (22-30); Chloride 105 mmol/L (98-107); Glucose 104 mg/dl (70-99); Potassium 4.2 mmol/L (3.5-5.1); Sodium 141 mmol/L (135-145); Total Protein 7.4 g/dl (6.3-8.2); eGFR 49.86
== END ==
LOC: SDSPAT 11:49
PROVIDERS: ATTENDING PHYSICIAN Internal Medicine Cardiovascular Disease; FAMILY PHYSICIAN Family Medicine; OTHER PHYSICIAN Internal Medicine
DX: I48.91 Unspecified atrial fibrillation (principal); I48.19 Other persistent atrial fibrillation
CPT/HCPCS: 36415; 80053; 85025; 86850; 86900; 86901

== ENCOUNTER 2025-07-16 07:52 | Day surgery (SDC) | payer MEDICARE, OTHER, SELFPAY ==
[2025-07-11 11:58] VITALS: BMI 31.6
[2025-07-16] VITALS (10 sets, daily range): BP systolic 96–132; BP diastolic 48–80
[2025-07-16 11:07] LABS: ACT-LR - POC 173 Seconds (116-155)
[2025-07-16 11:35] LABS: ACT-LR - POC 397 Seconds (116-155)
--- NOTE | 2025-07-16 11:58 | ITS.CL.ABL ---
Newspaper Delivery Counselor - Ablation
Ablation
Procedure Report:
AFIB / A flutter ablation:
Ms. Balderas is a very pleasant 84 yr old woman with medical history significant for symptomatic persistent atrial fibrillation s/p AF ablation on 07/13/2024 with PVI and PWI ablation is here in the EP lab for artial flutter ablation
Date of Procedure:
07/16/2025
Indications:
Symptomatic persistent atrial fibrillation / atrial flutter
Pre-Operative Diagnosis:
Persistent atrial fibrillation / atrial flutter
Post-Operative Diagnosis:
Persistent atrial fibrillation / atrial flutter
Procedure Performed:
Redo atrial fibrillation ablation
Roof line formation for atypical roof dependent atrial flutter
Biatrial flutter ablation
Ablation of anterior wall flutter line of block creation for sil-mitral flutter
Typical atrial flutter with cavo tricuspid isthmus dependent flutter ablation
Performing Physician:
Lukas Quinones MD
Assistants:
EP staff
Anesthesia:
See anesthesia records
Detailed Description of the Procedure:
Written informed consent was obtained from the patient after a full explanation of the risks and benefits of the procedure including the risks of sedation and anesthesia.
The patient was brought to the electrophysiology laboratory in stable condition in fasting state. Continuous electrocardiographic and hemodynamic monitoring was initiated.
The initial rhythm was atrial flutter.
The procedure site was meticulously prepared with surgical scrub and allowed to dry with no pooling. Sterile draping was applied to cover the procedure site. The image intensifier was draped with sterile bag and positioned over the patient. After
infusion of local anesthetic, vascular access was obtained under ultrasound guidance and sheaths were placed over guide wire as detailed below.
The images of the ultrasound of the femoral vessels were stored in patient chart.
Sheath and Catheter Placement:
Given patient renal transplant, long sheaths were used for the acess
Sheaths:
Agilis sheath in right femoral vein upgraded from 8Fr in right femoral vein
9Fr in right femoral vein
Catheters:
The Affera Sphere 9 catheter -bidirectional D/F - at locations of HRA, RV, LA and LV.
ICE catheter -AccuNav - at locations of RA, SVC, and RV.
Heparin was initiated after the access was obtained.
Intracardiac ECHO:
An 8-[place] AcuNav intracardiac ECHO (ICE) probe was advanced through the 9-[place] sheath in the left femoral vein into the right atrium under fluoroscopic and ICE ultrasound image guidance and a baseline ECHO study was performed. The left atrial
size was dilated. There was trace tricuspid regurgitation. The aortic valve was grossly normal. There was normal left ventricular size and function. There is a trace pericardial effusion. The KATLIN has normal velocities. The pulmonary had good flow
identified.
During the procedure, ICE was used for monitoring of complications, guidance of trans-septal puncture, monitor the catheter position and tracking ablation lesions. No change in the pericardial space noted throughout the procedure.
The flutter was studied and was fluctuating from typical to atypical on the surface EKG and was noted to have flat on the CS. The decision was made to proceed with left atrial ablation first before coming back for right atrial ablation.
Trans-septal Puncture:
Heparin was initiated and infused to maintain appropriate ACT. A J-tipped guidewire was advanced through into the superior vena cava under fluoroscopic and ICE guidance. The Agilis sheath with BRK needle was advanced into the superior vena cava over
the guidewire. The apparatus was withdrawn until it was in contact with the fossa ovalis. The position was adjusted based on fluoroscopy and ultrasound images from ICE. Under fluoroscopic, hemodynamic and ICE ultrasound guidance, left atrium was
cannulated by advancing the needle. Once atrial septum was cannulated, the needle was pulled back and the guide wire was advanced through the needle into the left atrium. The guide wire was advanced into the left superior pulmonary vein. Both the
sheath and the dilator was advanced into the left atrium. The dilator with the needle was withdrawn. Blood was aspirated from the Agilis sheath and arterial blood confirmed. The sheath was flushed. Saline injection noted into the left atrium on ICE.
The waveform of the LA pressure was recorded. The mapping catheter was advanced in the Agilis sheath into the left pulmonary vein.
3D Electroanatomic Mapping:
Using the Sphere 9 Affera catheter advanced through Agilis sheath into the left atrium, an electroanatomic map (EAM) of the left atrium was created using [employer] mapping system with Prism-1 software. The map was used for localization of catheter
position and tacking of ablation lesions. The EAM of the left atrium showed a total of 4 PVs with two left and the two right sided pulmonary veins with all electrically isolated from the body the LA. The posterior wall was also isolated. The flutter
was noted to be biatrial. The flutter circuit was involving the anterior wall with significant scar with partially in the right atrium. It showed scattered scar on the anterior wall of the LA. The LA was dilated in size.
Following the EAM, preparation were made for ablation.
Ablation:
Ablation # 1: Atypical atrial flutter / Roof line Formation:
Given silent pulmonary veins, the decision was made to proceed with roof line formation for the AF/Flutter.
Pulsed field ablation was performed using an open irrigation, bidirectional, contact sensing, dual energy ablation catheter ([employer] sphere -9). A set of pulsed field ablations were placed on the roof line connecting the left superior pulmonary vein
ablation lesions to the right superior pulmonary vein lesions rings.
The LA was mapped with [employer] mapping system with Prism-1 software in sinus rhythm confirming the line of block at the ablation lesions lines.
Ablation # 2: Biatrial flutter ablation
The flutter circuit entrance into the left atrium was noted at the Best bundle. The distribution of Best bundle was identified and multiple ablation lesions were placed from Best bundle to the Coumadin ridge and then further ablations
were placed on the anterior bundle on the anterior side of left atrial appendage.
Ablation #3: Mitral flutter ablation with anterior left atrial mitral line formation:
A series of ablations were placed from the left superior pulmonary vein to anterior mitral annulus. There was significant scar noted at the mitral annulus on the anterior wall making the conduction slow and a substrate for atypical flutter. Given
patient's history of atypical flutter, we proceeded with mitral flutter ablation of anterior wall.
Ablation # 4: Anterior wall focal / micro reentry flutter ablation:
There was focal atrial tachycardia noted at the base of the KATLIN on the anterior wall with baseline severely fractionated signals adjacent to a scar tissue.
Series of ablations were placed to suppress any abnormal activity.
Ablation #4: Typical atrial flutter with cavotricuspid isthmus ablation
The flutter was mapped in detail in the right atrium and was noted to be typical atrial flutter counterclockwise revolving around the tricuspid valve involving the cavotricuspid isthmus.
The CTI ablation was done using radiofrequency with Affera sphere -9 ablation, open irrigation, force-sensing bidirectional ablation catheter in the cavotricuspid isthmus from the tricuspid annulus to the IVC ridge.
The flutter terminated into sinus rhythm with ablation.
Once the ablation catheter reach near the IVC, the ablation energy was changed to pulsefield.
-Bidirectional block was confirmed across the CTI line with differential pacing.
-Double potentials were spaced greater than 98 msec apart.
-The conduction time across the CTI line from proximal CS pacing was 182 msec.
-EAM of the right atrium was obtained with coronary sinus pacing and showed a line of block at the CTI.
-The time interval just lateral to the ablation lesions was 182 msec and the lateral wall was 112 msec
- All these maneuvers confirmed the block at the CTI line.
- Post ablation HV interval was unchanged at 54msec
EP study:
Sinus Node Function: The sinus node functions are within acceptable normal range.
Atrioventricular Maria Luisa Function: Post ablation HV interval was unchanged
Procedure End
ICE study was done again that showed no epicardial accumulation. No complications noted.
Following the completion of the EP study, catheters were removed. Protamine 40 mg was given at the end of the procedure and ACT was checked repeatedly. The sheaths were removed and hemostasis achieved with Fig of 8 suture and manual compression
after acceptable ACT is achieved.
Left atrial Pressure:
Pre-Procedure: Mean LA pressure was 18mmHg
Post-Procedure: Mean LA pressure was 21mmHg
Post-Procedure: Mean RA pressure was 16mmHg
Fluoro Time:
2.3min / 0.51Reca5
Estimated Blood loss:
<10 cc
Specimens Removed:
None.
Implants / Devices:
None
Urine output:
None
Packs / Drains/ Tubes:
None
Instrument / Sponge Count Correct:
Yes
Complications of the Procedure:
None
Condition of Patient at Time of Transfer:
Hemodynamically stable with no neurological or vascular compromise.
Summary:
Successful atrial fibrillation ablation with substrate modification, atrial flutter ablation with cavo-tricuspid isthmus line block formation, roof flutter line creation, anterior mitral flutter and by atrial flutter ablation
Figures from the Procedure:
Figure 1: The electroanatomic mapping (EAM) of the left atrium with bipolar voltage (purple indicates normal electrical activity with red as no myocardial muscle electric activity indicating a line of block or scar.
[2025-07-16] MEDS: ANESTHETIC LOZENGE 1 LOZENGE PO (12:24)
[2025-07-16] MEDS: LASIX 40 MG IV (12:28)
--- NOTE | 2025-07-16 16:22 | W.PN.UPDATE ---
Update Note
Progress Note Update
Pt seen post PFA. Right groin site without ht/bleeding, oob ambulating. Post EKG SR w/1st deg AVB, no acute changes. Resume eliquis tonight at usual time, continue other meds as before. Some dyspnea/fine bibasilar rales post procedure, had gotten
1.5L fluid. Lasix 40mg IV x1 given with good improvement. Followup at [facility] as scheduled. Home today if groin site/tele remain stable.
[2025-07-17 11:00] LABS: ACT-LR - POC > 397 Seconds (116-155)
== END 2025-07-16 16:30 | disposition home or self-care (01) ==
LOC: CATH 07:52
PROVIDERS: ATTENDING PHYSICIAN Internal Medicine Cardiovascular Disease; FAMILY PHYSICIAN Family Medicine; OTHER PHYSICIAN Internal Medicine
DX: I48.19 Other persistent atrial fibrillation (principal); I44.0 Atrioventricular block, first degree; I48.92 Unspecified atrial flutter; Z88.8 Allergy status to other drugs, medicaments and biological substances; Z79.01 Long term (current) use of anticoagulants; Z79.899 Other long term (current) drug therapy
CPT/HCPCS: C1730; C1894; C1733; C1766; C1892; C1759; 85347; 93005; 93655; 93656

== ENCOUNTER 2025-07-20 20:57 | Inpatient (IN) | payer MEDICARE, OTHER, SELFPAY ==
[2025-07-20 15:27] VITALS: BP 149/64
[2025-07-20 16:20] LABS: Hematocrit 40.4 % (37.0-47.0); Hemoglobin 13.1 g/dL (12.0-16.0); Mean Corp Hgb Conc. 32.4 g/dL (33.0-37.0); Mean Corpuscular Volume 90.0 fL (81.0-99.0); Nucleated Red Blood Cells % 0 %; Platelet Count 180 10^3/uL (130-400); Red Cell Dist. Width 13.0 % (11.5-14.5)
--- NOTE | 2025-07-20 16:37 | ED.GENMED ---
History of Present Illness
<ESTEFANY Acosta - Last Filed: 07/20/25 20:04>
General
Chief Complaint: Breathing Problem
Source: patient
Exam Limitations: none
Time Seen by Provider: 07/20/25 16:34
Nursing documentation reviewed up to this point in time: agreed with
History of Present Illness
History of Present Illness:
Patient is a 84-year-old female with past medical history of A-fib, CHF reflux atrial valve presents to the ER for evaluation. Patient is status post ablation 07/16(Wednesday) she reports ever since then she has felt very short of breath especially
with exertion. She reports also heart rate which is normally in the 60s has been running in the high 40s to 50s. She also notes that she has gained 5 pounds. She normally is on Lasix 40 mg twice daily however on Wednesday and she took 80
mg in the morning and 40 mg at night. She take an additional 80 mg this morning. She does complain of some ankle swelling. She denies any chest pain. Denies any fevers
Past History
<ESTEFANY Acosta - Last Filed: 07/20/25 20:04>
Past History
ED Past Medical History: Arrthythmia, CHF and GERD
ED Past Surgical History: Cardiac, Cholecystectomy and Gynecological
Social History
Tobacco: Non-smoker
Alcohol: None
Drug: None
Personal:
Living: with family
Phy Exam
<ESTEFANY Acosta - Last Filed: 07/20/25 20:04>
General Physical Exam
General Presentation: no apparent distress
General Skin: warm and dry
General Habitus: normal
General Mental: alert
General Hydration: appears well hydrated
Cardiovascular Exam
Cardiovascular Exam: regular rate/rhythm, no murmur and normal peripheral pulses
Pulmonary Exam
Pulmonary Exam: lungs clear and no respiratory distress
Neurological Exam
Neurological Exam: alert and oriented x3
Musculoskeletal Exam
Musculoskeletal Exam: other (mild ankle swelling b/l )
Skin Exam
Skin Exam: normal color and warm/dry
Psychiatric Exam
Psychiatric Exam: normal mood/affect
Scores
<ESTEFANY Acosta - Last Filed: 07/20/25 20:04>
Heart Failure Risk
Heart Failure Risk Score: Not Applicable
Course
<ESTEFANY Acosta - Last Filed: 07/20/25 20:04>
Orders/Labs/Results
Orders:
Orders
07/20/25 15:29
Electrocardiogram (*1) Urgent
Reason for Study: Shortness of Breath
EKG- Treatment ONCE
07/20/25 16:11
BNP [NT-proBNP] Urgent
CMP [Comprehensive Metabolic Panel] Urgent
07/20/25 16:12
CBC/With Diff [Complete Blood Count/With Diff] Urgent
07/20/25 17:05
Chest [CR Chest - 2 Views ] Urgent
Comment:
Reason For Exam: sob
07/20/25 19:58
Furosemide [Lasix] 40 mg IV NOW STA
Abnormal Lab Results
07/20/25 07/20/25
16:11 16:12
MCHC 32.4 L g/dL
(33.0-37.0)
Absolute Monos (auto) 0.7 H 10^3/uL
(0.1-0.6)
Carbon Dioxide 31 H mmol/L
(22-30)
BUN 25 H mg/dl
(7-17)
Creatinine 1.1 H mg/dL
(0.6-1.0)
Glucose 104 H mg/dl
(70-99)
AST 37 H U/L
(14-36)
ALT 48 H U/L
(0-35)
07/20/25 16:12
07/20/25 16:11
Vital Signs
Initial and Last Documented VS:
Initial Vital Signs
Temp Pulse Resp BP Pulse Ox
98.0 F 62 18 149/64 98
07/20/25 15:27 07/20/25 15:27 07/20/25 15:27 07/20/25 15:27 07/20/25 15:27
Last Documented Vital Signs
Temp Pulse Resp BP Pulse Ox
98.0 F 61 14 145/62 99
07/20/25 15:27 07/20/25 18:25 07/20/25 18:25 07/20/25 18:25 07/20/25 18:25
Wrapper Sheeter consulted with Physician
Wrapper Sheeter consulted with physician?: Yes
Name of Physician Consulted: Juliane
<Jose Cardozo, DO - Last Filed: 07/20/25 20:22>
Orders/Labs/Results
Orders:
Orders
07/20/25 15:29
Electrocardiogram (*1) Urgent
Reason for Study: Shortness of Breath
EKG- Treatment ONCE
07/20/25 16:11
BNP [NT-proBNP] Urgent
CMP [Comprehensive Metabolic Panel] Urgent
07/20/25 16:12
CBC/With Diff [Complete Blood Count/With Diff] Urgent
07/20/25 17:05
Chest [CR Chest - 2 Views ] Urgent
Comment:
Reason For Exam: sob
07/20/25 19:58
Furosemide [Lasix] 40 mg IV NOW STA
Abnormal Lab Results
07/20/25 07/20/25
16:11 16:12
MCHC 32.4 L g/dL
(33.0-37.0)
Absolute Monos (auto) 0.7 H 10^3/uL
(0.1-0.6)
Carbon Dioxide 31 H mmol/L
(22-30)
BUN 25 H mg/dl
(7-17)
Creatinine 1.1 H mg/dL
(0.6-1.0)
Glucose 104 H mg/dl
(70-99)
AST 37 H U/L
(14-36)
ALT 48 H U/L
(0-35)
07/20/25 16:12
07/20/25 16:11
Vital Signs
Initial and Last Documented VS:
Initial Vital Signs
Temp Pulse Resp BP Pulse Ox
98.0 F 62 18 149/64 98
07/20/25 15:27 07/20/25 15:27 07/20/25 15:27 07/20/25 15:27 07/20/25 15:27
Last Documented Vital Signs
Temp Pulse Resp BP Pulse Ox
98.0 F 61 14 145/62 99
07/20/25 15:27 07/20/25 18:25 07/20/25 18:25 07/20/25 18:25 07/20/25 18:25
<ESTEFANY Acosta - Last Filed: 07/20/25 20:04>
MDM/Problems Addressed
Differential Diagnosis Includes:
Not limited to CHF anemia
MDM/Problems Addressed:
As documented patient is an 84-year-old female who presents to the ER for increasing shortness of breath. Patient had an ablation on Wednesday and has been short of breath since. She has noticed increased weight gain as well as increased ankle
swelling. She has increased her Lasix on her own but continues to feel short of breath. She denies any fevers and is afebrile. X-ray does show effusion.
Patient very dyspneic on exertion will require admission. Case discussed with ED physician who evaluated patient
Chronic conditions affecting care:
Recent cardiac ablation for A-fib on Wednesday, hx of chf
<ESTEFANY Acosta - Last Filed: 07/20/25 20:04>
*Radiology
Radiology exam reviewed: radiology read reviewed
*Pulse Oximetry
SaO2: 98
Oxygen Mode of Delivery: Room air
Patient hypoxic: no
*EKG
Interpreted by ED Provider?: Yes
Heart Rate: 60
Rate: normal
Rhythm: sinus
Ischemia: non-specific ST changes
*Critical Care Note
Total Time (30-74mins, 75-104mins- exclusive of procedures): Not Applicable
ED Attending Note
<ESTEFANY Acosta - Last Filed: 07/20/25 20:04>
-
Portions of this chart may have been created with voice recognition software.� Occasional wrong word or��sound alike� substitutions may have occurred due to the inherent limitations of voice recognition software.
<Jose Cardozo DO - Last Filed: 07/20/25 20:22>
ED Attending Note
Patient seen and examined by attending physician: Yes
ED Attending Note:
I have reviewed and agree with history treatment plan by ESTEFANY Dougherty. My exam revealed
Physical Exam
General: no apparent distress, not acutely ill
Neck: supple. no meningeal signs. normal posterior pharynx
Heart: s1/s2 regular rate and rhythm, no murmur. equal radial
pulses.
HEENT: Pupils equal round reactive to light, EOMI
Lungs: no acute respiratory distress. clear bilaterally
Abdomen: normal bowel sounds. not tender. no CVAT
Neuro: alert and oriented. no focal neurological deficits cranial nerves II through XII intact
Skin: no rash
Psychiatric: well kept. interactive and cooperative
Extremities: no edema. no calf tenderness. negative homans. good distal pulses
Patient with pleural effusion, possibly related CHF, dyspnea may also be related to patient's intermittent bradycardia. This may also be causing her fatigue. Admit to hospitalist, IV Lasix ordered.
Discharge Plan
Departure
Patient Disposition: Admit
Date of Disposition: 07/20/25
Time of Disposition: 20:01
Admit to: Med/Surg
Admit to doctor: hospitalist
Presentation/result/management discussed w/ accepting MD/DO: Hospitalist
Patient with high blood pressure during this ER visit?: Yes
Condition: Fair
Covid-19: Not Applicable
Discharge Problem:
LOPEZ (dyspnea on exertion)
Prescriptions:
No Action
cyanocobalamin (vitamin B-12) 1,000 MCG tablet
500 mcg PO HS
escitalopram oxalate 20 MG tablet
20 mg PO DAILY
omeprazole 20 MG tablet,delayed release (DR/EC)
20 mg PO DAILY
cholecalciferol (vitamin D3) [Vitamin D3] 1,000 UNIT capsule
5,000 unit PO HS
Culturelle 10 billion cell Capsule
1 cap PO HS
dapagliflozin propanediol [Farxiga] 10 mg Tablet
10 mg PO DAILY
furosemide 40 mg tablet
40 mg PO QPM
rosuvastatin 10 mg tablet
10 mg PO HS
diltiazem HCl 300 mg Capsule,Extended Release 24 Hr
300 mg PO HS
bupropion HCl 100 mg Tablet Sustained-Release 12 Hr
100 mg PO DAILY
metoprolol succinate 25 mg Capsule,Sprinkle,Er 24hr
25 mg PO HS
polyethylene glycol 3350 [Miralax] 17 gram Powder In Packet
17 g PO DAILYPRN PRN (Reason: constipation)
furosemide [Lasix] 80 mg Tablet
80 mg PO DAILY
Eliquis 5 mg tablet
5 mg PO BID
Referrals:
Janes Gomez Jr. DO [Family Provider, Internal Medicine]
Interventions
Interventions:
*Risk Screen - Suicide Last Done: 07/20/25 15:27
*General Assessment Last Done: 07/20/25 15:27
*Neglect/Abuse Screening Last Done: 07/20/25 15:27
ED- Cardiac Assessment Last Done: 07/20/25 16:56
ED- Pulmonary Assessment Last Done: 07/20/25 16:56
Discharge Date and Time
Print Language: TRISTANIAN
[2025-07-20 16:42] LABS: ALT (SGPT) 48 U/L (0-35); AST (SGOT) 37 U/L (14-36); Albumin 4.0 g/dl (3.5-5.0); Alkaline Phosphatase 88 U/L (38-126); Blood Urea Nitrogen 25 mg/dl (7-17); Calcium 9.8 mg/dl (8.4-10.2); Carbon Dioxide 31 mmol/L (22-30); Chloride 102 mmol/L (98-107); Glucose 104 mg/dl (70-99); Potassium 3.7 mmol/L (3.5-5.1); Sodium 140 mmol/L (135-145); Total Protein 6.5 g/dl (6.3-8.2); eGFR 49.86
[2025-07-20 16:58] VITALS: BMI 33.7
[2025-07-20 18:25] VITALS: BP 145/62
[2025-07-20 20:09] VITALS: BP 143/67
[2025-07-20] MEDS: LASIX 40 MG IV (20:10)
--- NOTE | 2025-07-20 20:36 | HPS.HSE ---
Family Physician
-
Family Physician: Janes Gomez Jr.
Chief Complaint
-
shortness of breath
History of Present Illness
84-year-old female past medical history of persistent atrial fibrillation, nonobstructive CAD, HFpEF, hypertension, hyperlipidemia, asthma/restrictive lung disease, obstructive sleep apnea, pulmonary embolism in 2018, anxiety/depression, GERD, fatty
liver, endometrial cancer status post total abdominal hysterectomy, thyroid lesion, osteopenia, CKD 3, presenting with shortness of breath with exertion and chest pressure with exertion.
She recently underwent ablation on 07/16 for atrial fibrillation and since then she has been short of breath with exertion. Her heart rate normally in the 60s is also been in the high 40s to 50s. She has gained 5 pounds. She is normally on Lasix
40 mg twice daily but she took 80 mg in the morning and 40 at night for the past 2 days. She has some ankle swelling. Denies any fevers. She has some productive cough. Also occasional dizziness with exertion.
Medical History
Past Medical History
Past Medical History: Reports Other (persistent atrial fibrillation, nonobstructive CAD, HFpEF, hypertension, hyperlipidemia, asthma/restrictive lung disease, obstructive sleep apnea, pulmonary embolism in 2018, anxiety/depression, GERD, fatty
liver, endometrial cancer status post total abdominal hysterectomy, thyroid lesion, osteopeni)
Past Surgical History: Reports Other (Cardioversion, total abdominal hysterectomy, cataracts, cholecystectomy,)
Social History
Tobacco: Non-smoker
Alcohol: None
Drug: None
Family History
Family History: Not pertinent
Allergies / Home Medications
Allergies reflects when Allergies were last updated in [facility].
Home Medications with original date entered in [facility]
Allergy/Medication List:
Allergies
Allergy/AdvReac Type Severity Reaction Status Date / Time
prednisone Allergy Psychosis, Verified 07/20/25 15:29
Elevated BP
Home Medications
cholecalciferol (vitamin D3) 25 mcg (1,000 unit) capsule (Vitamin D3) 5,000 unit PO HS Supplement 07/24/21
cyanocobalamin (vitamin B-12) 1,000 mcg tablet 500 mcg PO HS Supplement 07/24/21
escitalopram oxalate 20 mg tablet 20 mg PO DAILY Mental Health/Anxiety 07/24/21
omeprazole 20 mg tablet,delayed release 20 mg PO DAILY Gastrointestinal Issue 07/24/21
Lactobacillus rhamnosus GG 10 billion cell capsule (Culturelle) 1 cap PO HS Gastrointestinal Issue 02/10/23
dapagliflozin propanediol 10 mg tablet (Farxiga) 10 mg PO DAILY Diabetes 02/10/23
furosemide 40 mg tablet 40 mg PO QPM Fluid Retention/Swelling 10/26/23
rosuvastatin 10 mg tablet 10 mg PO HS High Cholesterol 10/26/23
bupropion HCl 100 mg tablet,12 hr sustained-release 100 mg PO DAILY Mental Health/Anxiety 04/27/25
diltiazem HCl 300 mg capsule,24 hr,extended release 300 mg PO HS Heart Disease/Condition 04/27/25
metoprolol succinate 25 mg capsule sprinkle, ext. release 24 hr 25 mg PO HS Heart Disease/Condition 04/27/25
apixaban 5 mg tablet (Eliquis) 5 mg PO BID Blood Clot Prevention/Tx 07/20/25
furosemide 80 mg tablet (Lasix) 80 mg PO DAILY Fluid Retention/Swelling 07/20/25
polyethylene glycol 3350 17 gram oral powder packet (Miralax) 17 g PO DAILYPRN PRN constipation 07/20/25
Review of Systems
-
History Source: Patient
A 12 point ROS was completed and negative except as noted: Yes
Constitutional: Reports No Symptoms
EENT: Reports No Symptoms
Respiratory: Reports See HPI
Cardiac: Reports See HPI
Abdomen/GI: Reports No Symptoms
: Reports No Symptoms
Musculoskeletal: Reports No Symptoms
Skin: Reports No Symptoms
Neurological: Reports No Symptoms
Endocrine: Reports No Symptoms
Hematologic/Lymphatic: Reports No Symptoms
Psych: Reports No Symptoms
Physical Exam
Vital Signs
Vital Signs
Temp Pulse Resp BP Pulse Ox
98.0 F 61 14 145/62 99
07/20/25 15:27 07/20/25 18:25 07/20/25 18:25 07/20/25 18:25 07/20/25 18:25
Physical Exam
General: Well Developed, Well Nourished and No Apparent Distress
HEENT: NormoCephalic, Moist mucous membranes and Atraumatic
Respiratory: Clear
Cardiac: S1/S2, Regular Rhythm and Peripheral Edema; No Murmur or Rub
GI: Soft, Non Tender, Non Distended and Normal Bowel Sounds; No Organomegaly
Rectal: Deferred by Provider
Musculoskeletal: No Clubbing, No Cyanosis and No Edema
Skin: No Rash
Neuro: Nonfocal/grossly intact
Laboratory Results
-
07/20/25 16:12
07/20/25 16:11
Laboratory Results
Total Bilirubin 1.0 mg/dl (0.2-1.3) 07/20/25 16:11
AST 37 U/L (14-36) H 07/20/25 16:11
ALT 48 U/L (0-35) H 07/20/25 16:11
Alkaline Phosphatase 88 U/L (38-126) 07/20/25 16:11
Data Reviewed
-
Lab Data: Labs Reviewed by me
Old Records: Reviewed
Impression/Plan
-
IMPRESSION:
PLAN:
# Acute HFpEF exacerbation
-Cardiac BNP 700
-Chest x-ray shows small right pleural effusion with adjacent patchy may be atelectasis versus pneumonia
-Check I's and O's, daily weights
-Check troponin
-EKG shows sinus rhythm with first-degree AV block
-60 IV lasix BID
-Continue dapagliflozin
- Cardiology consulted
# Reported bradycardia at home
- Heart rate 60s here
Persistent atrial fibrillation
-Status post ablation on 07/16
- Continue diltiazem
- Continue Eliquis
- Continue metoprolol
Nonobstructive CAD
CKD 3
- Renal function at baseline
Essential hypertension
Hyperlipidemia
- Continue statin
Asthma/restrictive lung disease
- Continue albuterol, budesonide/formoterol
Obstructive sleep apnea
Pulmonary embolism in 2018
Anxiety/depression
- continue bupropion, Lexapro
GERD
- Continue omeprazole
Fatty liver
Endometrial cancer status post total abdominal hysterectomy
Thyroid lesion
Osteopenia
Full code
DVT prophylaxis�Eliquis
Cardiac diet
--- NOTE | 2025-07-20 21:20 | CON.CAR ---
Consultation
Consultation Request
Date/Time Consultation Requested: 07/20/2025 at 8:45 PM
Date/Time Consultation Performed: 07/20/2025 at 9:20 PM
Requesting Provider: Hospitalist
Performing Provider: Dr. Gracia
Reason for Consultation: Shortness of breath/CHF
Medical History
-
History of Present Illness:
84-year-old woman with recent discharge from the hospital 07/16/2025 after A-fib ablation who presents with shortness of breath.
She has a history of persistent atrial fibrillation, history of A-fib ablation 06/2024 nonobstructive CAD, HFpEF, hypertension, hyperlipidemia, asthma/restrictive lung disease, obstructive sleep apnea, pulmonary embolism in 2018, anxiety/depression,
GERD, fatty liver, endometrial cancer status post total abdominal hysterectomy, thyroid lesion, osteopenia, CKD 3.
Patient states that she was tired the day after she had her procedure and then felt like she had increased shortness of breath yesterday as well as today she took an extra dose of Lasix both days but did not feel she had a response. The day after
procedure she had some mild chest sensation but that has resolved and she has had no chest discomfort today. No orthopnea or increased edema initially the day after her procedure she felt like she had some extra phlegm but otherwise has not had an
increased cough and no fever. She has been taking her medications as prescribed
Past medical history
In addition to the above history
Endometrial cancer
Irritable bowel
GERD
Hyperlipidemia
Persistent atrial fibs and A-fib ablation 2023
Pulmonary emboli provoked post travel 2017
Past surgical history
Cataract surgery
Appendectomy
Cholecystectomy
YASMANY/BSO
Past Medical History
Past Medical History: Other (As noted above)
Past Surgical History: Other (As noted above)
Allergies / Home Medications
Allergy/AdvReac Type Severity Reaction Status Date / Time
prednisone Allergy Psychosis, Verified 07/20/25 15:29
Elevated BP
�Medication �Instructions �Recorded �Confirmed �Type
cholecalciferol (vitamin D3) 25 5,000 unit PO HS Supplement 07/24/21 07/20/25 History
mcg (1,000 unit) capsule (Vitamin
D3)
cyanocobalamin (vitamin B-12) 500 mcg PO HS Supplement 07/24/21 07/20/25 History
1,000 mcg tablet
escitalopram oxalate 20 mg tablet 20 mg PO DAILY Mental 07/24/21 07/20/25 History
Health/Anxiety
omeprazole 20 mg tablet,delayed 20 mg PO DAILY Gastrointestinal 07/24/21 07/20/25 History
release Issue
Lactobacillus rhamnosus GG 10 1 cap PO HS Gastrointestinal Issue 02/10/23 07/20/25 History
billion cell capsule (Culturelle)
dapagliflozin propanediol 10 mg 10 mg PO DAILY Diabetes 02/10/23 07/20/25 History
tablet (Farxiga)
furosemide 40 mg tablet 40 mg PO QPM Fluid 10/26/23 07/20/25 History
Retention/Swelling
rosuvastatin 10 mg tablet 10 mg PO HS High Cholesterol 10/26/23 07/20/25 History
bupropion HCl 100 mg tablet,12 hr 100 mg PO DAILY Mental 04/27/25 07/20/25 History
sustained-release Health/Anxiety
diltiazem HCl 300 mg capsule,24 300 mg PO HS Heart 04/27/25 07/20/25 History
hr,extended release Disease/Condition
metoprolol succinate 25 mg capsule 25 mg PO HS Heart Disease/Condition 04/27/25 07/20/25 History
sprinkle, ext. release 24 hr
apixaban 5 mg tablet (Eliquis) 5 mg PO BID Blood Clot 07/20/25 07/20/25 History
Prevention/Tx
furosemide 80 mg tablet (Lasix) 80 mg PO DAILY Fluid 07/20/25 07/20/25 History
Retention/Swelling
polyethylene glycol 3350 17 gram 17 g PO DAILYPRN PRN constipation 07/20/25 07/20/25 History
oral powder packet (Miralax)
Review of Systems
-
All other systems: Negative unless noted
Physical Exam
Vital Signs
Temp Pulse Resp BP Pulse Ox
98.0 F 61 14 145/62 99
07/20/25 15:27 07/20/25 18:25 07/20/25 18:25 07/20/25 18:25 07/20/25 18:25
Lab Results
07/20/25 16:12
07/20/25 16:11
Zzn-I-Jexbkndqutq Pept 717 pg/ml 07/20/25 16:11
Physical Exam
General: Well Developed and Well Nourished
HEENT: Normocephalic
Respiratory: Other (No wheezes or rhonchi)
Cardiac: Regular Rhythm
GI: Soft, Non Tender, Non Distended and Normal Bowel Sounds
Musculoskeletal: No Clubbing and Other (trace)
Skin: Warm and Dry
Neuro: Awake and Alert
Psych: Calm
Impression / Plan
-
.
Shortness of breath. Patient with recent A-fib ablation now presents with shortness of breath. Chest x-ray with small effusion and adjacent opacity. Patient currently afebrile but possibility of pneumonia needs to be considered in this patient
with recent procedure and anesthesia. proBNP modestly elevated at 717. Possible component of heart failure also a consideration patient with prior history with heart failure preserved ejection fraction and increased. Patient is currently
diuresing after IV lasix given n ER
- Patient is already being in late given Lasix 40 mg IV. Will continue to monitor response to diuresis. Monitor labs, weights and renal function.
-Will defer to hospitalist regarding antibiotics.
.
Persistent A-fib. Patient also had been noted to have atrial flutter. Previous ablation back in 2023. Patient most recently had an ablation 07/16/2025.
-Remains in sinus rhythm.
-Continue anticoagulation with Eliquis
History of HFpEF. Issues as outlined above
.
Hypertension. Mildly elevated. Monitor on current therapy.
.
Chest x-ray 07/20/2025 small right pleural effusion with adjacent opacity May represent atelectasis or pneumonia
proBNP 717
.
Echocardiogram 05/24/2025 normal left ventricular function mild to moderate tricuspid regurgitation estimated PA pressure 46 mmHg PFO versus small ASD with prominent xvts-my-qicoj shunt
.
ECG sinus rhythm 07/20/2025 with first-degree AV block anterior/anterolateral T wave inversions. Compared to 07/16/2025 no significant change
Data Reviewed
-
EKG: Report Reviewed by me
Radiology: Report Reviewed by me
Medical Tests (Nuc Med, Echo etc): Report Reviewed by me
Labs: Labs Reviewed by me
[2025-07-20] MEDS: LASIX 20 MG IV (21:40)
[2025-07-20 22:00] VITALS: BP 152/68
[2025-07-20 22:17] LABS: Troponin I 0.182 ng/ml
[2025-07-20 23:13] VITALS: BP 136/85; BMI 32.0
[2025-07-20 23:39] VITALS: BMI 32.0
[2025-07-20] MEDS: TOPROL XL 25 MG PO (23:53)
[2025-07-20] MEDS: ELIQUIS 5 MG PO (23:53)
[2025-07-20] MEDS: VITAMIN D3 (cholecalciferol) 125 MCG PO (23:53)
[2025-07-20] MEDS: VITAMIN B-12 500 MCG PO (23:53)
[2025-07-20] MEDS: VISBIOME 1 CAP PO (23:53)
[2025-07-20] MEDS: CRESTOR 10 MG PO (23:53)
[2025-07-20] MEDS: CARDIZEM CD 300 MG PO (23:57)
[2025-07-21 03:51] VITALS: BP 136/73
[2025-07-21 03:51] LABS: Troponin I 0.158 ng/ml
[2025-07-21 07:20] VITALS: BP 135/70
[2025-07-21 09:12] LABS: Hematocrit 41.8 % (37.0-47.0); Hemoglobin 14.0 g/dL (12.0-16.0); Mean Corp Hgb Conc. 33.5 g/dL (33.0-37.0); Mean Corpuscular Volume 88.4 fL (81.0-99.0); Nucleated Red Blood Cells % 0 %; Platelet Count 168 10^3/uL (130-400); Red Cell Dist. Width 12.8 % (11.5-14.5)
[2025-07-21 09:31] LABS: Troponin I 0.126 ng/ml
[2025-07-21] MEDS: FARXIGA 10 MG PO (10:08)
[2025-07-21] MEDS: ELIQUIS 5 MG PO ×2 (10:08→22:27)
[2025-07-21] MEDS: PROTONIX 40 MG PO (10:08)
[2025-07-21] MEDS: WELLBUTRIN SR (12 hour sustained release) 100 MG PO (10:08)
[2025-07-21] MEDS: LEXAPRO 20 MG PO (10:11)
[2025-07-21 10:17] LABS: ALT (SGPT) 45 U/L (0-35); AST (SGOT) 32 U/L (14-36); Albumin 4.1 g/dl (3.5-5.0); Alkaline Phosphatase 95 U/L (38-126); Blood Urea Nitrogen 20 mg/dl (7-17); Calcium 10.0 mg/dl (8.4-10.2); Carbon Dioxide 29 mmol/L (22-30); Chloride 100 mmol/L (98-107); Estimated Creatinine Clearance 44 ml/min; Glucose 80 mg/dl (70-99); Potassium 3.7 mmol/L (3.5-5.1); Sodium 140 mmol/L (135-145); Total Protein 6.7 g/dl (6.3-8.2); eGFR > 60.00
[2025-07-21] MEDS: LASIX 60 MG IV ×2 (10:22→15:58)
[2025-07-21 11:15] VITALS: BP 137/72
--- NOTE | 2025-07-21 12:00 | W.PN.HOSP.TC ---
Today's Communication/Plan
-
Continue Lasix.
Assessment / Plan
Assessment / Plan
Impression:
84-year-old female past medical history of persistent atrial fibrillation, nonobstructive CAD, HFpEF, hypertension, hyperlipidemia, asthma/restrictive lung disease, obstructive sleep apnea, pulmonary embolism in 2018, anxiety/depression, GERD, fatty
liver, endometrial cancer status post total abdominal hysterectomy, thyroid lesion, osteopenia, CKD 3, presenting with shortness of breath with exertion and chest pressure with exertion.
She recently underwent ablation on 07/16 for atrial fibrillation and since then she has been short of breath with exertion. Her heart rate normally in the 60s is also been in the high 40s to 50s. She has gained 5 pounds. She is normally on Lasix
40 mg twice daily but she took 80 mg in the morning and 40 at night for the past 2 days. She has some ankle swelling. Denies any fevers. She has some productive cough. Also occasional dizziness with exertion.
Seen by cardiology recommended to continue Lasix also concern of opacity seen on x-ray, start antibiotic.
Assessment/plan:
Acute CHF Exacerbation:
Patient has acute on chronic systolic congestive heart failure
Patient presented with shortness of breath.
proBNP modestly elevated at 717
Troponin level is 0.182 ->0.158--> 0.126
No chest pain
Continue IV diuresing in form of Lasix 60 mg twice daily
Daily weight.
Strict I's and O's.
Consulted cardiology, note appreciated.
Most recent echo shows 05/24/2025 :
SUMMARY
1. Normal left and right ventricular size and systolic function. No wall motion abnormality.
2. Moderate left atrial lodgment.
3. Mild to moderate tricuspid regurgitation.
4. Estimated PASP 46 mmHg.
5. PFO versus small ASD with predominant melq-nv-tzknm shunting.
6. No significant change from study dated 10/27/2023. Flow across the atrial septum was not described on the prior study
Persistent Atrial Fibrillation S/P ablation on 07/16 (now on sinus rhythm)
Continue diltiazem.
Continue Eliquis.
Continue metoprolol.
concern of bradycardia, continue awake overnight monitor
Nonobstructive CAD
No chest pain
Essential hypertension
Continue home meds
Hyperlipidemia
- Continue statin
Asthma/restrictive lung disease/Obstructive sleep apnea
- Continue albuterol, budesonide/formoterol
Pulmonary embolism in 2018
Already on Eliquis for A-fib
Anxiety/depression
- continue bupropion, Lexapro
GERD
- Continue omeprazole
Fatty liver
Endometrial cancer status post total abdominal hysterectomy
Thyroid lesion
Osteopenia
CODE STATUS: Full code
DVT prophylaxis: Eliquis
Diet: cardiac diet
Family communication: Discussed with daughter at bedside
Disposition: Continue Lasix.
Total time spent on today's encounter was 55 minutes which included time spent in counseling the patient/family regarding diagnosis and treatment plan as listed above, goals of care, and symptom management. Case was discussed with nursing staff,
specialists, and care coordinators/case management. All labs and imaging personally reviewed by me. Remainder the time spent in detailed review of previous records, lab data, imaging, and other medical provider documentation.
Anticipated Discharge: 24 - 48 hours
Subjective/Interval History
-
Date of Service: July 21, 2025
Patient seen and examined at bedside, denies any chest pain , shortness of breath Improved, no abdominal pain, no nausea, no vomiting, no diarrhea or constipation.
lower extremity edema improved.
Objective Data
-
Labs:
Laboratory Results
07/21/25
08:58
WBC 6.3
Hgb 14.0
Hct 41.8
Plt Count 168
Sodium 140
Potassium 3.7
Chloride 100
Carbon Dioxide 29
BUN 20 H
Creatinine 0.9
Glucose 80
Calcium 10.0
Total Bilirubin 1.7 H
AST 32
ALT 45 H
Alkaline Phosphatase 95
Vital Signs:
Vital Signs
Temp Pulse Resp BP Pulse Ox
97.3 F 66 16 135/70 95
07/21/25 07:20 07/21/25 07:20 07/21/25 07:20 07/21/25 07:20 07/21/25 07:20
I&O
07/20/25 07/21/25 07/22/25
06:59 06:59 05:59
Intake Total 0 / 0
Balance 0 / 0
Physical Exam
-
General: Well Developed, Well Nourished, No Apparent Distress and Comfortable
HEENT: Normocephalic, Atraumatic, Moist Mucous Membranes, No Ptosis, PERRLA and Nose Appears Normal
Respiratory: Rales, Rhonchi and Non Labored Respirations
Cardiac: Regular Rhythm and S1/S2
Breast: Deferred by me
GI: Soft, Nontender, Nondistended and Normal Bowel Sounds
Genito-urinary: No Costovertebral Tender
Musculoskeletal: No Clubbing and No Cyanosis; Negative No Edema (Trace edema bilateral)
Skin: Warm
Neuro: Awake, Alert, Oriented, AO x 3 and No Motor Deficits
Psych: Calm
Data Reviewed
-
Diagnostic Radiology: Image personally visualized and interpreted and Report Reviewed by me
CT Scan: Image personally visualized and interpreted and Report Reviewed by me
Ultrasound: Image personally visualized and interpreted and Report Reviewed by me
MRI: Image personally visualized and interpreted and Report Reviewed by me
Medical Tests (Nuc Med, Echo etc): Image personally visualized and interpreted and Report Reviewed by me
Labs: Labs Reviewed by me
Old Records: Reviewed
--- NOTE | 2025-07-21 14:30 | W.PN.CD ---
Today's Communication / Plan
-
improving but still with SOB getting in and outof bed
Continue with iV lasix and monitor renl function
Consider follow up CXR to reassess abnormlaities on admission CXR
Impression / Plan
-
.
Shortness of breath. Patient with recent A-fib ablation now presents with shortness of breath. Chest x-ray with small effusion and adjacent opacity. Patient currently afebrile but possibility of pneumonia needs to be considered in this patient
with recent procedure and anesthesia. proBNP modestly elevated at 717. Possible component of heart failure also a consideration patient with prior history with heart failure preserved ejection fraction and increased. Patient is currently
diuresing after IV lasix given n ER
- improved after lasix IV. will assess need for IV lasix in AM
-Will defer to hospitalist regarding antibiotics.
.
Persistent A-fib. Patient also had been noted to have atrial flutter. Previous ablation back in 2023. Patient most recently had an ablation 07/16/2025.
-Remains in sinus rhythm.
-Continue anticoagulation with Eliquis
Troponin 0.82 peak has been trending down since admit and may be related to recetn procedure
History of HFpEF. Issues as outlined above.
-Patient placed back on IV amiodarone and nadolol added. No recurrent arrhythmias overnight. Currently without symptoms
-Continue medical therapy will discuss with EP regarding long-term management plan including potential for ablation
.
Hypertension. Mildly elevated. Monitor on current therapy.
.
Chest x-ray 07/20/2025 small right pleural effusion with adjacent opacity May represent atelectasis or pneumonia
proBNP 717
.
Echocardiogram 05/24/2025 normal left ventricular function mild to moderate tricuspid regurgitation estimated PA pressure 46 mmHg PFO versus small ASD with prominent ghcr-cx-kviek shunt
.
ECG sinus rhythm 07/20/2025 with first-degree AV block anterior/anterolateral T wave inversions. Compared to 07/16/2025 no significant change
Physical Exam
Vital Signs/Labs
Vital Signs
Temp Pulse Resp BP Pulse Ox
97.3 F 61 18 137/72 92
07/21/25 11:15 07/21/25 11:15 07/21/25 11:15 07/21/25 11:15 07/21/25 11:15
07/20/25 07/21/25 07/22/25
06:59 06:59 05:59
Actual Weight 76.856 kg
07/21/25 08:58
07/21/25 08:58
07/20/25
16:11
Adl-K-Ncuamjmwwka Pept 717
LAB Results
07/20/25 07/21/25 07/21/25
21:39 03:18 08:58
Troponin I 0.182 H* 0.158 H* 0.126 H*
07/21/25
14:45
Troponin I Cancelled
Physical Exam
Constitutional: No acute distress
Cardiovascular: Rhythm & rate is regular
Respiratory: Wheeze Absent and Rhonchi Absent
GI: Non tender and Normal bowel sounds
Neuro/Psych: Alert and Oriented
Data Reviewed
-
Date of Service: July 21, 2025
Medical Decision Making: Reviewed Test Results
EKG: Report Reviewed by me
Medical Tests (PFT, Pathology etc): Report Reviewed by me
Labs: Labs Reviewed by me
[2025-07-21 15:20] VITALS: BP 137/59
--- NOTE | 2025-07-21 15:47 | CM ---
IA completed IMM given and placed on chart. Pt lives alone in a [facility] [place]. Independent in ADLs and IADLs. DME: Occasionally uses a cane, uses CPAP. NO home O2 or SNF. Had private duty aid for 24Hr after a recent
ablation. Has also had O/P PT at [facility]. NO insecurities identified. Confirmed PCP, RX, insurance and drug coverage.
Currently on IV ABX, IV Lasix and room air 96%
Plan: Home no needs vs with VN
[2025-07-21] MEDS: STERILE WATER FOR INJECTION 10 ML IV (16:04)
[2025-07-21] MEDS: ROCEPHIN 1000 MG IV (16:04)
[2025-07-21 19:30] VITALS: BP 133/69
[2025-07-21] MEDS: VISBIOME 1 CAP PO (22:28)
[2025-07-21] MEDS: VITAMIN B-12 500 MCG PO ×2 (22:28)
[2025-07-21] MEDS: VIBRAMYCIN 100 MG PO (22:28)
[2025-07-21] MEDS: TOPROL XL 25 MG PO (22:28)
[2025-07-21] MEDS: CRESTOR 10 MG PO (22:28)
[2025-07-21] MEDS: CARDIZEM CD 300 MG PO (22:29)
[2025-07-21] MEDS: VITAMIN D3 (cholecalciferol) 125 MCG PO (22:29)
[2025-07-21 23:00] VITALS: BP 136/69
[2025-07-22] VITALS (7 sets, daily range): BP systolic 132–156; BP diastolic 64–77; PULSE 61; BMI 30.7
[2025-07-22] MEDS: LEXAPRO 20 MG PO (08:59)
[2025-07-22] MEDS: VIBRAMYCIN 100 MG PO ×2 (08:59→20:12)
[2025-07-22] MEDS: WELLBUTRIN SR (12 hour sustained release) 100 MG PO (08:59)
[2025-07-22] MEDS: FARXIGA 10 MG PO (08:59)
[2025-07-22] MEDS: PROTONIX 40 MG PO (08:59)
[2025-07-22] MEDS: ELIQUIS 5 MG PO ×2 (08:59→20:12)
[2025-07-22 09:30] LABS: Blood Urea Nitrogen 26 mg/dl (7-17); Calcium 10.4 mg/dl (8.4-10.2); Carbon Dioxide 33 mmol/L (22-30); Chloride 100 mmol/L (98-107); Estimated Creatinine Clearance 36 ml/min; Glucose 116 mg/dl (70-99); Magnesium 2.2 mg/dl (1.6-2.3); Potassium 3.6 mmol/L (3.5-5.1); Sodium 139 mmol/L (135-145); eGFR 49.86
[2025-07-22 09:42] LABS: Hematocrit 44.3 % (37.0-47.0); Hemoglobin 14.7 g/dL (12.0-16.0); Mean Corp Hgb Conc. 33.2 g/dL (33.0-37.0); Mean Corpuscular Volume 88.4 fL (81.0-99.0); Platelet Count 204 10^3/uL (130-400); Red Cell Dist. Width 12.9 % (11.5-14.5)
[2025-07-22] MEDS: LASIX 60 MG IV (09:43)
[2025-07-22] MEDS: MUCINEX 600 MG PO ×2 (12:29→20:12)
--- NOTE | 2025-07-22 13:40 | W.PN.HOSP.TC ---
Today's Communication/Plan
-
Continue Lasix. CPAP
Assessment / Plan
Assessment / Plan
Impression:
84-year-old female past medical history of persistent atrial fibrillation, nonobstructive CAD, HFpEF, hypertension, hyperlipidemia, asthma/restrictive lung disease, obstructive sleep apnea, pulmonary embolism in 2018, anxiety/depression, GERD, fatty
liver, endometrial cancer status post total abdominal hysterectomy, thyroid lesion, osteopenia, CKD 3, presenting with shortness of breath with exertion and chest pressure with exertion.
She recently underwent ablation on 07/16 for atrial fibrillation and since then she has been short of breath with exertion. Her heart rate normally in the 60s is also been in the high 40s to 50s. She has gained 5 pounds. She is normally on Lasix
40 mg twice daily but she took 80 mg in the morning and 40 at night for the past 2 days. She has some ankle swelling. Denies any fevers. She has some productive cough. Also occasional dizziness with exertion.
Seen by cardiology recommended to continue Lasix also concern of opacity seen on x-ray, start antibiotic.
Assessment/plan:
Acute CHF Exacerbation:
Patient has acute on chronic systolic congestive heart failure
Patient presented with shortness of breath.
proBNP modestly elevated at 717
Troponin level is 0.182 ->0.158--> 0.126
No chest pain
Continue IV diuresing in form of Lasix 60 mg twice daily
Daily weight.
Strict I's and O's.
Consulted cardiology, note appreciated.
Most recent echo shows 05/24/2025 :
SUMMARY
1. Normal left and right ventricular size and systolic function. No wall motion abnormality.
2. Moderate left atrial lodgment.
3. Mild to moderate tricuspid regurgitation.
4. Estimated PASP 46 mmHg.
5. PFO versus small ASD with predominant afjy-ia-fzggr shunting.
6. No significant change from study dated 10/27/2023. Flow across the atrial septum was not described on the prior study
Persistent Atrial Fibrillation S/P ablation on 07/16 (now on sinus rhythm)
Continue diltiazem.
Continue Eliquis.
Continue metoprolol.
concern of bradycardia, continue cardiac care nurse
Patient supposed to be on CPAP at home, will order
Nonobstructive CAD
No chest pain
Acute bronchitis.
Concern of opacity seen on x-ray.
Started doxycycline.
Repeat x-ray pending
Essential hypertension
Continue home meds
Hyperlipidemia
- Continue statin
Asthma/restrictive lung disease/Obstructive sleep apnea
- Continue albuterol, budesonide/formoterol
- CPAP
Pulmonary embolism in 2018
Already on Eliquis for A-fib
Anxiety/depression
- continue bupropion, Lexapro
GERD
- Continue omeprazole
Fatty liver
Endometrial cancer status post total abdominal hysterectomy
Thyroid lesion
Osteopenia
CODE STATUS: Full code
DVT prophylaxis: Eliquis
Diet: cardiac diet
Family communication: Discussed with daughter at bedside
Disposition: Continue Lasix. CPAP
Total time spent on today's encounter was 55 minutes which included time spent in counseling the patient/family regarding diagnosis and treatment plan as listed above, goals of care, and symptom management. Case was discussed with nursing staff,
specialists, and care coordinators/case management. All labs and imaging personally reviewed by me. Remainder the time spent in detailed review of previous records, lab data, imaging, and other medical provider documentation.
Anticipated Discharge: Within 24 hours
Subjective/Interval History
-
Date of Service: July 22, 2025
Patient seen and examined at bedside, denies any chest pain , shortness of breath Improved, no abdominal pain, no nausea, no vomiting, no diarrhea or constipation.
lower extremity edema improved.
Objective Data
-
Labs:
Laboratory Results
07/22/25
08:14
WBC 6.3
Hgb 14.7
Hct 44.3
Plt Count 204 D
Sodium 139
Potassium 3.6
Chloride 100
Carbon Dioxide 33 H
BUN 26 H
Creatinine 1.1 H
Glucose 116 H
Calcium 10.4 H
Vital Signs:
Vital Signs
Temp Pulse Resp BP Pulse Ox
97.5 F 63 18 156/76 97
07/22/25 11:20 07/22/25 11:20 07/22/25 11:20 07/22/25 11:20 07/22/25 11:20
I&O
07/21/25 07/22/25 07/23/25
06:59 05:59 06:59
Intake Total 0 / 0 240 / 240
Output Total 2450 / 2450 350 / 350
Balance 0 / 0 -2450 / -2450 -110 / -110
Physical Exam
-
General: Well Developed, Well Nourished, No Apparent Distress and Comfortable
HEENT: Normocephalic, Atraumatic, Moist Mucous Membranes, No Ptosis, PERRLA and Nose Appears Normal
Respiratory: Rales, Rhonchi and Non Labored Respirations
Cardiac: Regular Rhythm and S1/S2
Breast: Deferred by me
GI: Soft, Nontender, Nondistended and Normal Bowel Sounds
Genito-urinary: No Costovertebral Tender
Musculoskeletal: No Clubbing and No Cyanosis; Negative No Edema (Trace edema bilateral)
Skin: Warm
Neuro: Awake, Alert, Oriented, AO x 3 and No Motor Deficits
Psych: Calm
[2025-07-22] MEDS: STERILE WATER FOR INJECTION 10 ML IV (16:23)
[2025-07-22] MEDS: ROCEPHIN 1000 MG IV (16:23)
[2025-07-22] MEDS: CRESTOR 10 MG PO (20:21)
[2025-07-22] MEDS: CARDIZEM CD 300 MG PO (20:21)
[2025-07-22] MEDS: VITAMIN D3 (cholecalciferol) 125 MCG PO (20:23)
[2025-07-22] MEDS: VISBIOME 1 CAP PO (20:23)
[2025-07-22] MEDS: VITAMIN B-12 500 MCG PO (20:23)
[2025-07-22] MEDS: TOPROL XL 25 MG PO (20:23)
[2025-07-23] VITALS (7 sets, daily range): BP systolic 132–152; BP diastolic 61–78; PULSE 64; BMI 30.5
--- NOTE | 2025-07-23 07:45 | W.PN.CD ---
Today's Communication / Plan
-
- stop Diltiazem and increase Toprol to 50 mg QD.
- Continue diuresis with lasix 60 mg BID.
Impression / Plan
-
.
Shortness of breath.
- Pnemonia and pulm edema
- High LV EDP noted at the time of ablation.
- Needs diuresis
- With recent instrumentation, intubation, ETT induced tracheal irritation injury may also precipitate this.
- Patient complained of throat pain and irritation post op.
- LVEDP was 21 at the time of ablation
- Continue Lasix 60 mg BID
- Will defer to hospitalist regarding antibiotics.
.
Persistent A-fib. Patient also had been noted to have atrial flutter. Previous ablation back in 2023. Patient most recently had an ablation 07/16/2025.
-Remains in sinus rhythm.
-Continue anticoagulation with Eliquis
- With recent bradycardia, will stop Diltiazem and increase Toprol to 50 mg QD.
Troponin 0.82 peak has been trending down since admit and may be related to recent procedure
History of HFpEF. Issues as outlined above.
- Off amiodarone and nadolol.
- With recent bradycardia, will stop Diltiazem and increase Toprol to 50 mg QD.
- No recurrent arrhythmias overnight. Currently without symptoms
-Continue medical therapy will discuss with EP regarding long-term management plan including potential for ablation
.
Hypertension. Mildly elevated. Monitor on current therapy.
.
Chest x-ray 07/20/2025 small right pleural effusion with adjacent opacity May represent atelectasis or pneumonia
proBNP 717
.
Echocardiogram 05/24/2025 normal left ventricular function mild to moderate tricuspid regurgitation estimated PA pressure 46 mmHg PFO versus small ASD with prominent ddmm-is-inbxj shunt
.
ECG sinus rhythm 07/20/2025 with first-degree AV block anterior/anterolateral T wave inversions. Compared to 07/16/2025 no significant change
Physical Exam
Vital Signs/Labs
Vital Signs
Temp Pulse Resp BP Pulse Ox
97.5 F 57 17 134/69 96
07/23/25 03:55 07/23/25 03:55 07/23/25 03:55 07/23/25 03:55 07/23/25 03:55
07/22/25 07/23/25 07/24/25
05:59 06:59 06:59
Actual Weight 73.709 kg 73.142 kg
Magnesium 2.2 mg/dl (1.6-2.3) 07/22/25 08:14
07/20/25
16:11
Bze-Y-Mpwhpezjowv Pept 717
LAB Results
07/20/25 07/21/25 07/21/25
21:39 03:18 08:58
Troponin I 0.182 H* 0.158 H* 0.126 H*
07/21/25
14:45
Troponin I Cancelled
Physical Exam
Constitutional: No acute distress and Comfortable
EENT: Anicteric and Moist mucous membranes
Cardiovascular: Rhythm & rate is regular and Pedal edema is absent
Respiratory: Respiratory effort normal and Crackles Present
GI: Soft, Distention absent and Non tender
Neuro/Psych: Alert, Oriented and AO x 3
Data Reviewed
-
Date of Service: July 23, 2025
Medical Decision Making: Reviewed Test Results, Test Interpretation and Review of Case with other Provider
Labs: Labs Reviewed by me
Old Records: Reviewed
[2025-07-23] MEDS: WELLBUTRIN SR (12 hour sustained release) 100 MG PO (08:59)
[2025-07-23] MEDS: LEXAPRO 20 MG PO (08:59)
[2025-07-23] MEDS: MUCINEX 600 MG PO ×2 (08:59→20:12)
[2025-07-23] MEDS: VIBRAMYCIN 100 MG PO ×2 (08:59→20:12)
[2025-07-23 09:00] LABS: Hematocrit 49.8 % (37.0-47.0); Hemoglobin 15.7 g/dL (12.0-16.0); Mean Corp Hgb Conc. 31.5 g/dL (33.0-37.0); Mean Corpuscular Volume 91.7 fL (81.0-99.0); Platelet Count 213 10^3/uL (130-400); Red Cell Dist. Width 13.0 % (11.5-14.5)
[2025-07-23] MEDS: ELIQUIS 5 MG PO ×2 (09:00→20:12)
[2025-07-23] MEDS: FARXIGA 10 MG PO (09:00)
[2025-07-23] MEDS: PROTONIX 40 MG PO (09:00)
[2025-07-23] MEDS: TOPROL XL 50 MG PO (09:02)
[2025-07-23 09:36] LABS: Blood Urea Nitrogen 23 mg/dl (7-17); Calcium 11.0 mg/dl (8.4-10.2); Carbon Dioxide 31 mmol/L (22-30); Chloride 101 mmol/L (98-107); Estimated Creatinine Clearance 43 ml/min; Glucose 129 mg/dl (70-99); Magnesium 2.1 mg/dl (1.6-2.3); Potassium 3.7 mmol/L (3.5-5.1); Sodium 140 mmol/L (135-145); eGFR > 60.00
--- NOTE | 2025-07-23 14:02 | PN.CDI ---
CDI
- -
CDI:
Physician Documentation Request
Admit Date: 07/20/25 20:57
Dear Doctor Jeremy,
Please review the following and provide your response in the progress notes.
Clinical Indicators:
- 07/22 PN 'acute on chronic systolic congestive heart failure'
- 07/21 Cardiology 'Possible component of heart failure also a consideration patient with prior history with heart failure preserved ejection fraction'
- 07/23 Cardiology 'History of HFpEF'
- 05/24/25 Echo EF 55-60%
Please provide further specificity regarding the most likely type and acuity of CHF you are evaluating, treating or monitoring.
Type Acuity
Systolic Acute
Diastolic Chronic
Combined Systolic/Diastolic Acute on Chronic
Other
Use of terms such as suspected, likely, concern for, or probable (associated with a specific diagnosis that is being evaluated, monitored, or treated as if it exists) are acceptable and can be coded in the inpatient setting, when documented at the
time of discharge.
Thank you,
Belkys Soriano RN
CDI Specialist
Please use your independent medical judgment in providing your response.
--- NOTE | 2025-07-23 14:20 | W.PN.HOSP.TC ---
Today's Communication/Plan
-
Continue Lasix. Dc cardizem, increased metoprolol.
Assessment / Plan
Assessment / Plan
Impression:
84-year-old female past medical history of persistent atrial fibrillation, nonobstructive CAD, HFpEF, hypertension, hyperlipidemia, asthma/restrictive lung disease, obstructive sleep apnea, pulmonary embolism in 2018, anxiety/depression, GERD, fatty
liver, endometrial cancer status post total abdominal hysterectomy, thyroid lesion, osteopenia, CKD 3, presenting with shortness of breath with exertion and chest pressure with exertion.
She recently underwent ablation on 07/16 for atrial fibrillation and since then she has been short of breath with exertion. Her heart rate normally in the 60s is also been in the high 40s to 50s. She has gained 5 pounds. She is normally on Lasix
40 mg twice daily but she took 80 mg in the morning and 40 at night for the past 2 days. She has some ankle swelling. Denies any fevers. She has some productive cough. Also occasional dizziness with exertion.
Seen by cardiology recommended to continue Lasix also concern of opacity seen on x-ray, start antibiotic.
Assessment/plan:
Acute CHF Exacerbation:
Patient has acute on chronic diastolic congestive heart failure
Patient presented with shortness of breath.
proBNP modestly elevated at 717
Troponin level is 0.182 ->0.158--> 0.126
No chest pain
Continue IV diuresing in form of Lasix 60 mg twice daily
Daily weight.
Strict I's and O's.
Consulted cardiology, note appreciated.
Most recent echo shows 05/24/2025 :
SUMMARY
1. Normal left and right ventricular size and systolic function. No wall motion abnormality.
2. Moderate left atrial lodgment.
3. Mild to moderate tricuspid regurgitation.
4. Estimated PASP 46 mmHg.
5. PFO versus small ASD with predominant quso-hj-fzjlj shunting.
6. No significant change from study dated 10/27/2023. Flow across the atrial septum was not described on the prior study
Persistent Atrial Fibrillation S/P ablation on 07/16 (now on sinus rhythm)
Continue diltiazem, held by cardiology..
Continue Eliquis.
Continue metoprolol.
concern of bradycardia, continue director of cardiac rehabilitation
Patient supposed to be on CPAP at home,ordered
Nonobstructive CAD
No chest pain
Acute bronchitis.
Concern of opacity seen on x-ray.
Started doxycycline.
Essential hypertension
Continue home meds
Hyperlipidemia
- Continue statin
Asthma/restrictive lung disease/Obstructive sleep apnea
- Continue albuterol, budesonide/formoterol
- CPAP
Pulmonary embolism in 2018
Already on Eliquis for A-fib
Anxiety/depression
- continue bupropion, Lexapro
GERD
- Continue omeprazole
Fatty liver
Endometrial cancer status post total abdominal hysterectomy
Thyroid lesion
Osteopenia
CODE STATUS: Full code
DVT prophylaxis: Eliquis
Diet: cardiac diet
Family communication: Discussed with daughter at bedside
Disposition: Continue Lasix. Dc cardizem, increased metoprolol.
Total time spent on today's encounter was 55 minutes which included time spent in counseling the patient/family regarding diagnosis and treatment plan as listed above, goals of care, and symptom management. Case was discussed with nursing staff,
specialists, and care coordinators/case management. All labs and imaging personally reviewed by me. Remainder the time spent in detailed review of previous records, lab data, imaging, and other medical provider documentation.
Anticipated Discharge: Within 24 hours
Subjective/Interval History
-
Date of Service: July 23, 2025
Patient seen and examined at bedside, denies any chest pain , shortness of breath Improved, no abdominal pain, no nausea, no vomiting, no diarrhea or constipation.
lower extremity edema improved.
Objective Data
-
Labs:
Laboratory Results
11/03/25
08:33
WBC 8.0
Hgb 15.7
Hct 49.8 H
Plt Count 213
Sodium 140
Potassium 3.7
Chloride 101
Carbon Dioxide 31 H
BUN 23 H
Creatinine 0.9
Glucose 129 H
Calcium 11.0 H
Vital Signs:
Vital Signs
Temp Pulse Resp BP Pulse Ox
97.5 F 67 16 147/78 96
07/23/25 11:00 07/23/25 11:00 07/23/25 11:00 07/23/25 11:00 07/23/25 11:00
I&O
07/22/25 07/23/25 07/24/25
05:59 06:59 06:59
Intake Total 600 / 600 120 / 120
Output Total 2450 / 2450 1100 / 1100
Balance -2450 / -2450 -500 / -500 120 / 120
Physical Exam
-
General: Well Developed, Well Nourished, No Apparent Distress and Comfortable
HEENT: Normocephalic, Atraumatic, Moist Mucous Membranes, No Ptosis, PERRLA and Nose Appears Normal
Respiratory: Rales, Rhonchi and Non Labored Respirations
Cardiac: Regular Rhythm and S1/S2
Breast: Deferred by me
GI: Soft, Nontender, Nondistended and Normal Bowel Sounds
Genito-urinary: No Costovertebral Tender
Musculoskeletal: No Clubbing and No Cyanosis; Negative No Edema (Trace edema bilateral)
Skin: Warm
Neuro: Awake, Alert, Oriented, AO x 3 and No Motor Deficits
Psych: Calm
[2025-07-23] MEDS: LASIX 60 MG IV (16:41)
[2025-07-23] MEDS: STERILE WATER FOR INJECTION 10 ML IV (16:42)
[2025-07-23] MEDS: ROCEPHIN 1000 MG IV (16:42)
[2025-07-23] MEDS: VISBIOME 1 CAP PO (20:15)
[2025-07-23] MEDS: VITAMIN B-12 500 MCG PO (20:15)
[2025-07-23] MEDS: CRESTOR 10 MG PO (20:15)
[2025-07-23] MEDS: VITAMIN D3 (cholecalciferol) 125 MCG PO (20:16)
[2025-07-24 03:42] VITALS: BP 139/75
[2025-07-24 06:00] VITALS: BMI 30.5
[2025-07-24 07:00] VITALS: BP 138/68
--- NOTE | 2025-07-24 08:01 | W.PN.CD ---
Addendum entered and electronically signed by Simón Paula MD 07/24/25 12:44:
Error below:
spironolactone should be once a day not BID
Original Note:
Today's Communication / Plan
-
add spironolactone 12.5mg bid
start furosemide 60mg po bid
renal panel in 1 and 3 weeks
chf follow up
ok for discharge if labs ok
Impression / Plan
-
.
Shortness of breath:multifactorial
- Pnemonia and pulm edema
- High LV EDP noted at the time of ablation.
- LVEDP was 21 at the time of ablation
- Will defer to hospitalist regarding antibiotics.
.
Acute Heart Failue with pereserved EF:
-improved appears euvolemic at 161lbs 2oz
-currently Lasix 60 mg BID--->transition to 60mg po bid
-will MRA, will need labs at 1 weeks and 3 weeks, then q 3 month
Persistent A-fib. Patient also had been noted to have atrial flutter. Previous ablation back in 2023. Patient most recently had an ablation 07/16/2025.
-Remains in sinus rhythm.
-Continue anticoagulation with Eliquis
- With recent bradycardia, will stop Diltiazem and increase Toprol to 50 mg QD.
Troponin 0.82 peak has been trending down since admit and may be related to recent procedure
.
Hypertension. Mildly elevated. Adding MRA.
Monitor on current therapy.
.
Chest x-ray 07/20/2025 small right pleural effusion with adjacent opacity May represent atelectasis or pneumonia
proBNP 717
.
Echocardiogram 05/24/2025 normal left ventricular function mild to moderate tricuspid regurgitation estimated PA pressure 46 mmHg PFO versus small ASD with prominent gtan-cf-opdoc shunt
.
ECG sinus rhythm 07/20/2025 with first-degree AV block anterior/anterolateral T wave inversions. Compared to 07/16/2025 no significant change
Physical Exam
Vital Signs/Labs
Vital Signs
Temp Pulse Resp BP Pulse Ox
97.5 F 63 17 139/75 96
07/24/25 03:42 07/24/25 03:42 07/24/25 03:42 07/24/25 03:42 07/24/25 03:42
07/23/25 07/24/25 07/25/25
06:59 06:59 06:59
Actual Weight 161 lb 4 oz 161 lb 2 oz
Magnesium 2.1 mg/dl (1.6-2.3) 07/23/25 08:33
07/20/25
16:11
Eme-K-Jixjrlwlofo Pept 717
LAB Results
07/21/25 07/21/25
08:58 14:45
Troponin I 0.126 H* Cancelled
Physical Exam
Constitutional: No acute distress
Cardiovascular: Rhythm & rate is regular, Pedal edema is absent, JVD pressure is normal, Systolic murmur absent and Diastolic murmur absent
Respiratory: Respiratory effort normal, Lungs clear to auscul., Wheeze Absent, Crackles Absent and Rhonchi Absent
Neuro/Psych: AO x 3
Data Reviewed
-
Date of Service: July 24, 2025
Medical Decision Making: Review of Case with other Provider (nurse Ashley present for rounds, discussed med changes with her)
EKG: Other (tele sinus)
[2025-07-24 10:28] LABS: Blood Urea Nitrogen 21 mg/dl (7-17); Calcium 11.0 mg/dl (8.4-10.2); Carbon Dioxide 33 mmol/L (22-30); Chloride 98 mmol/L (98-107); Estimated Creatinine Clearance 39 ml/min; Glucose 124 mg/dl (70-99); Magnesium 2.0 mg/dl (1.6-2.3); Potassium 3.8 mmol/L (3.5-5.1); Sodium 139 mmol/L (135-145); eGFR 55.90
[2025-07-24 10:29] LABS: Hematocrit 48.2 % (37.0-47.0); Hemoglobin 15.5 g/dL (12.0-16.0); Mean Corp Hgb Conc. 32.2 g/dL (33.0-37.0); Mean Corpuscular Volume 88.4 fL (81.0-99.0); Platelet Count 220 10^3/uL (130-400); Red Cell Dist. Width 13.0 % (11.5-14.5)
[2025-07-24] MEDS: WELLBUTRIN SR (12 hour sustained release) 100 MG PO (10:49)
[2025-07-24] MEDS: TOPROL XL 50 MG PO (10:49)
[2025-07-24] MEDS: ELIQUIS 5 MG PO (10:49)
[2025-07-24] MEDS: LEXAPRO 20 MG PO (10:49)
[2025-07-24] MEDS: LASIX 60 MG PO (10:49)
[2025-07-24] MEDS: FARXIGA 10 MG PO (10:49)
[2025-07-24] MEDS: MUCINEX 600 MG PO (10:49)
[2025-07-24] MEDS: LASIX IV (10:50)
[2025-07-24] MEDS: VIBRAMYCIN 100 MG PO (10:50)
[2025-07-24] MEDS: PROTONIX 40 MG PO (10:50)
[2025-07-24 11:00] VITALS: BP 157/88
--- NOTE | 2025-07-24 11:26 | W.PN.HOSP.TC ---
Today's Communication/Plan
-
Discharge home.
Assessment / Plan
Assessment / Plan
Impression:
84-year-old female past medical history of persistent atrial fibrillation, nonobstructive CAD, HFpEF, hypertension, hyperlipidemia, asthma/restrictive lung disease, obstructive sleep apnea, pulmonary embolism in 2018, anxiety/depression, GERD, fatty
liver, endometrial cancer status post total abdominal hysterectomy, thyroid lesion, osteopenia, CKD 3, presenting with shortness of breath with exertion and chest pressure with exertion.
She recently underwent ablation on 07/16 for atrial fibrillation and since then she has been short of breath with exertion. Her heart rate normally in the 60s is also been in the high 40s to 50s. She has gained 5 pounds. She is normally on Lasix
40 mg twice daily but she took 80 mg in the morning and 40 at night for the past 2 days. She has some ankle swelling. Denies any fevers. She has some productive cough. Also occasional dizziness with exertion.
Seen by cardiology recommended to continue Lasix also concern of opacity seen on x-ray, start antibiotic.
Cardiology recommending to hold diltiazem and increase metoprolol to 50 mg daily.
Added Aldactone 12.5 mg daily
Advised to discharge on Lasix 60 mg twice
Assessment/plan:
Acute CHF Exacerbation:
Patient has acute on chronic diastolic congestive heart failure
Patient presented with shortness of breath.
proBNP modestly elevated at 717
Troponin level is 0.182 ->0.158--> 0.126
No chest pain
Continue IV diuresing in form of Lasix 60 mg twice daily
Daily weight.
Strict I's and O's.
Consulted cardiology, note appreciated.
Most recent echo shows 05/24/2025 :
SUMMARY
1. Normal left and right ventricular size and systolic function. No wall motion abnormality.
2. Moderate left atrial lodgment.
3. Mild to moderate tricuspid regurgitation.
4. Estimated PASP 46 mmHg.
5. PFO versus small ASD with predominant qfcd-az-bypoy shunting.
6. No significant change from study dated 10/27/2023. Flow across the atrial septum was not described on the prior study
07/24
Cardiology recommending to hold diltiazem and increase metoprolol to 50 mg daily.
Added Aldactone 12.5 mg daily
Advised to discharge on Lasix 60 mg twice
Persistent Atrial Fibrillation S/P ablation on 07/16 (now on sinus rhythm)
Continue diltiazem, held by cardiology.
Will be discharged off diltiazem
Continue Eliquis.
Continue metoprolol--> was increased to 50 daily
concern of bradycardia, continue cardiac surgeon
Patient supposed to be on CPAP at home,ordered
Nonobstructive CAD
No chest pain
Acute bronchitis.
Concern of opacity seen on x-ray.
Started doxycycline.
Essential hypertension
Continue home meds
Hyperlipidemia
- Continue statin
Asthma/restrictive lung disease/Obstructive sleep apnea
- Continue albuterol, budesonide/formoterol
- CPAP
Pulmonary embolism in 2018
Already on Eliquis for A-fib
Anxiety/depression
- continue bupropion, Lexapro
GERD
- Continue omeprazole
Fatty liver
Endometrial cancer status post total abdominal hysterectomy
Thyroid lesion
Osteopenia
CODE STATUS: Full code
DVT prophylaxis: Eliquis
Diet: cardiac diet
Family communication: Discussed with daughter at bedside
Disposition: Discharge home.
Total time spent on today's encounter was 55 minutes which included time spent in counseling the patient/family regarding diagnosis and treatment plan as listed above, goals of care, and symptom management. Case was discussed with nursing staff,
specialists, and care coordinators/case management. All labs and imaging personally reviewed by me. Remainder the time spent in detailed review of previous records, lab data, imaging, and other medical provider documentation.
Anticipated Discharge: Today
Subjective/Interval History
-
Date of Service: July 24, 2025
Patient seen and examined at bedside, denies any chest pain , shortness of breath Improved, no abdominal pain, no nausea, no vomiting, no diarrhea or constipation.
Coughing improved.
Objective Data
-
Labs:
Laboratory Results
07/24/25
09:32
WBC 8.2
Hgb 15.5
Hct 48.2 H
Plt Count 220
Sodium 139
Potassium 3.8
Chloride 98
Carbon Dioxide 33 H
BUN 21 H
Creatinine 1.0
Glucose 124 H
Calcium 11.0 H
Vital Signs:
Vital Signs
Temp Pulse Resp BP Pulse Ox
97.5 F 62 16 138/68 92
07/24/25 07:00 07/24/25 07:00 07/24/25 07:00 07/24/25 07:00 07/24/25 07:00
I&O
07/23/25 07/24/25 07/25/25
06:59 06:59 06:59
Intake Total 600 / 600 840 / 840
Output Total 1100 / 1100 600 / 600
Balance -500 / -500 240 / 240
Physical Exam
-
General: Well Developed, Well Nourished, No Apparent Distress and Comfortable
HEENT: Normocephalic, Atraumatic, Moist Mucous Membranes, No Ptosis, PERRLA and Nose Appears Normal
Respiratory: Rales and Non Labored Respirations
Cardiac: Regular Rhythm and S1/S2
Breast: Deferred by me
GI: Soft, Nontender, Nondistended and Normal Bowel Sounds
Genito-urinary: No Costovertebral Tender
Musculoskeletal: No Clubbing and No Cyanosis; Negative No Edema (Trace edema bilateral)
Skin: Warm
Neuro: Awake, Alert, Oriented, AO x 3 and No Motor Deficits
Psych: Calm
--- NOTE | 2025-07-24 11:31 | W.DCSUMMARY ---
Discharge Summary
Discharge Data
Date of Admission: 07/20/25
Date of Discharge: 07/24/25
Total time spent discharging patient (in min): 40
-
Pending Results: No
Hospital Course
Hospital course
84-year-old female past medical history of persistent atrial fibrillation, nonobstructive CAD, HFpEF, hypertension, hyperlipidemia, asthma/restrictive lung disease, obstructive sleep apnea, pulmonary embolism in 2018, anxiety/depression, GERD, fatty
liver, endometrial cancer status post total abdominal hysterectomy, thyroid lesion, osteopenia, CKD 3, presenting with shortness of breath with exertion and chest pressure with exertion.
She recently underwent ablation on 07/16 for atrial fibrillation and since then she has been short of breath with exertion. Her heart rate normally in the 60s is also been in the high 40s to 50s. She has gained 5 pounds. She is normally on Lasix
40 mg twice daily but she took 80 mg in the morning and 40 at night for the past 2 days. She has some ankle swelling. Denies any fevers. She has some productive cough. Also occasional dizziness with exertion.
Seen by cardiology recommended to continue Lasix also concern of opacity seen on x-ray, start antibiotic.
Cardiology recommending to hold diltiazem and increase metoprolol to 50 mg daily.
Added Aldactone 12.5 mg daily
Advised to discharge on Lasix 60 mg twice daily.
During hospitalization patient was treated from the following
Acute CHF Exacerbation:
Patient has acute on chronic diastolic congestive heart failure
Patient presented with shortness of breath.
proBNP modestly elevated at 717
Troponin level is 0.182 ->0.158--> 0.126
No chest pain
Continue IV diuresing in form of Lasix 60 mg twice daily
Daily weight.
Strict I's and O's.
Consulted cardiology, note appreciated.
Most recent echo shows 05/24/2025 :
SUMMARY
1. Normal left and right ventricular size and systolic function. No wall motion abnormality.
2. Moderate left atrial lodgment.
3. Mild to moderate tricuspid regurgitation.
4. Estimated PASP 46 mmHg.
5. PFO versus small ASD with predominant [id number] shunting.
6. No significant change from study dated 10/27/2023. Flow across the atrial septum was not described on the prior study
07/24
Cardiology recommending to hold diltiazem and increase metoprolol to 50 mg daily.
Added Aldactone 12.5 mg daily
Advised to discharge on Lasix 60 mg twice
Persistent Atrial Fibrillation S/P ablation on 07/16 (now on sinus rhythm)
Continue diltiazem, held by cardiology.
Will be discharged off diltiazem
Continue Eliquis.
Continue metoprolol--> was increased to 50 daily
concern of bradycardia, continue compliance monitor
Patient supposed to be on CPAP at home,ordered
Nonobstructive CAD
No chest pain
Acute bronchitis.
Concern of opacity seen on x-ray.
Started doxycycline.
Essential hypertension
Continue home meds
Hyperlipidemia
- Continue statin
Asthma/restrictive lung disease/Obstructive sleep apnea
- Continue albuterol, budesonide/formoterol
- CPAP
Pulmonary embolism in 2018
Already on Eliquis for A-fib
Anxiety/depression
- continue bupropion, Lexapro
GERD
- Continue omeprazole
Fatty liver
Endometrial cancer status post total abdominal hysterectomy
Thyroid lesion
Osteopenia
CODE STATUS: Full code
DVT prophylaxis: Eliquis
Diet: cardiac diet
Family communication: Discussed with daughter at bedside
Disposition: Discharge home.
Total time spent on today's encounter was 40 minutes which included time spent in counseling the patient/family regarding diagnosis and treatment plan as listed above, goals of care, and symptom management. Case was discussed with nursing staff,
specialists, and care coordinators/case management. All labs and imaging personally reviewed by me. Remainder the time spent in detailed review of previous records, lab data, imaging, and other medical provider documentation.
Anticipated Discharge: Today
Discharge Plan
-
Patient Disposition: Home (Routine Discharge)
Discharge Diagnosis/Procedures: Acute CHF Exacerbation.
Acute bronchitis.
Diet: 2 Gram Sodium and Restrict fluids to 48 oz
Blood Work: Basic metabolic panel 1 day prior to your cardiology office visit. See attached order.
Specialty Instructions: Weigh Daily- Call MD for wt gain/loss 3 lbs overnight/5 lbs in 1 week
Instructions: *CBC Heart Failure Instructions
Referrals:
Mira Miramontes CRNP [Specified Professional Personl, Cardiology] - 07/30/25 11:20 am
Janes Gomez Jr., DO [Family Provider, Internal Medicine]
Prescriptions:
New
spironolactone 25 mg Tablet
12.5 mg PO DAILY Qty: 30 0RF
furosemide 20 mg Tablet
60 mg PO BID AT 0800,1600 30 Days Qty: 180 0RF
metoprolol succinate 50 mg Tablet Extended Release 24 Hr
50 mg PO DAILY 30 Days Qty: 30 0RF
guaifenesin 600 mg Tablet Extended Release 12hr
600 mg PO Q12 10 Days Qty: 20 0RF
Continued
cyanocobalamin (vitamin B-12) 1,000 MCG tablet
500 mcg PO HS
escitalopram oxalate 20 MG tablet
20 mg PO DAILY
omeprazole 20 MG tablet,delayed release (DR/EC)
20 mg PO DAILY
cholecalciferol (vitamin D3) [Vitamin D3] 1,000 UNIT capsule
5,000 unit PO HS
Culturelle 10 billion cell Capsule
1 cap PO HS
dapagliflozin propanediol [Farxiga] 10 mg Tablet
10 mg PO DAILY
rosuvastatin 10 mg tablet
10 mg PO HS
bupropion HCl 100 mg Tablet Sustained-Release 12 Hr
100 mg PO DAILY
polyethylene glycol 3350 [Miralax] 17 gram Powder In Packet
17 g PO DAILYPRN PRN (Reason: constipation)
Eliquis 5 mg tablet
5 mg PO BID
Discontinued
furosemide 40 mg tablet
40 mg PO QPM
diltiazem HCl 300 mg Capsule,Extended Release 24 Hr
300 mg PO HS
metoprolol succinate 25 mg Capsule,Sprinkle,Er 24hr
25 mg PO HS
furosemide [Lasix] 80 mg Tablet
80 mg PO DAILY
Discharge Orders:
Discharge Patient (As Directed); Ordered 07/24/25
Ordered By: Funmilayo Luna
Discharge Date and Time
Print Language: AZERI
--- NOTE | 2025-07-24 11:40 | CM ---
Chart reviewed. Patient will d/c home today
Met w/ patient bedside, aware of d/c today. Daughter can transport this afternoon
IMM verbally reviewed, copy provided, copy on chart
No CM needs identified at this time
Plan: Home, no needs
[2025-07-24] MEDS: ZOFRAN 4 MG IV (12:28)
--- NOTE | 2025-07-24 13:55 | W.HF.CON ---
Heart Failure
- LV Function
Left ventricular function study result: LV Ejection fraction >/= 50% (ECHO 05/24/25)
Ejection Fraction Percentage: 55-60
- ARNI
Patient already on ARNI: No
Heart Failure ARNI Not Indicated: LV Ejection Fraction >/= 40%
- ACEI/ARB
Patient already on ACEI/ARB: No
Heart Failure ACEI/ARB Not Indicated: LV Ejection Fraction > 40%
- Beta Nishi
Patient already on Evidence Based Beta Nishi: Yes
- Mineralocorticord Receptor Antagonist
Patient already on MRA: Yes
- SGLT-2 Inhibitor
Patient already on SGLT-2 Inhibitor: Yes
- Afib Anticoagulation
Patient already on Anticoagulation for Afib: Yes
- NYHA CHF Classification
NYHA CHF Classification Level: Class III - Symptoms w/ min exertion, interferes w/ nml daily activity
- ACC/AHA Stage
ACC/AHA Stage: Stage C: Symptomatic Heart Failure
== END 2025-07-24 15:57 | disposition home or self-care (01) | DRG 291 ==
LOC: 4 EAST ACU 20:57
PROVIDERS: ADMITTING PHYSICIAN Hospitalist; ATTENDING PHYSICIAN General Practice; CONSULT PHYSICIAN Internal Medicine Cardiovascular Disease; EMERGENCY PHYSICIAN Emergency Medicine; FAMILY PHYSICIAN Family Medicine
DX: I13.0 Hypertensive heart and chronic kidney disease with heart failure and stage 1 through stage 4 chronic kidney disease, or unspecified chronic kidney disease (principal); I50.23 Acute on chronic systolic (congestive) heart failure; I50.33 Acute on chronic diastolic (congestive) heart failure; I48.19 Other persistent atrial fibrillation; Z79.01 Long term (current) use of anticoagulants; N18.30 Chronic kidney disease, stage 3 unspecified; E11.22 Type 2 diabetes mellitus with diabetic chronic kidney disease; J98.4 Other disorders of lung; J45.909 Unspecified asthma, uncomplicated; F32.A Depression, unspecified; F41.9 Anxiety disorder, unspecified; K21.9 Gastro-esophageal reflux disease without esophagitis; M85.80 Other specified disorders of bone density and structure, unspecified site; J20.9 Acute bronchitis, unspecified; Z79.899 Other long term (current) drug therapy
CPT/HCPCS: 71046; 80048; 80053; 83735; 83880; 84484; 85025; 85027; 87070; 93005; 94660; 96374; 99285

== ENCOUNTER → 2025-07-27 11:10 | Outpatient (REF) | payer MEDICARE, OTHER, SELFPAY ==
[2025-07-27 13:32] LABS: Blood Urea Nitrogen 23 mg/dl (7-17); Calcium 10.1 mg/dl (8.4-10.2); Carbon Dioxide 29 mmol/L (22-30); Chloride 102 mmol/L (98-107); Glucose 95 mg/dl (70-99); Potassium 4.0 mmol/L (3.5-5.1); Sodium 140 mmol/L (135-145); eGFR 55.90
== END ==
LOC: REG 11:10
PROVIDERS: ATTENDING PHYSICIAN Internal Medicine; FAMILY PHYSICIAN Family Medicine
DX: I50.32 Chronic diastolic (congestive) heart failure (principal)
CPT/HCPCS: 36415; 80048